=== PATIENT | female | born 1940 | race Caucasian/White ===

== ENCOUNTER 2017-08-05 06:50 | Inpatient (IN) | payer MEDICARE, MEDICAID ==
[2017-08-05 07:22] LABS: #Basophils 0.1 thou/uL (0.0-0.2); #Eosinphils 0.5 thou/uL (0.0-0.7); #Lymphocytes 2.4 thou/uL (1.20-3.40); #Monocytes 0.5 thou/uL (0.11-0.59); #Neutrophils 5.3 thou/uL (1.40-6.50); %Basophils 0.9 % (0.0-1.0); %Eosinophils 5.5 % (0.0-10.0); %Lymphocytes 26.9 % (21.0-51.0); %Monocytes 5.8 % (0.0-10.0); Hematocrit 41.3 % (36.0-47.0); Red Blood Cell (RBC) Count 3.96 mill/uL (4.20-5.40); White Blood Cell (WBC) Count 8.7 thou/uL (4.8-10.8)
[2017-08-05 07:45] LABS: ALT (SGPT) 15 U/L (8-55); AST (SGOT) 11 U/L (5-34); Alkaline Phosphatase 77 U/L (40-150); Anion Gap 16 mmol/L (10-20); BUN (Urea Nitrogen) 12 mg/dL (9.8-20.1); Bilirubin, Total 0.7 mg/dL (0.2-1.2); CK (CPK) 30 U/L (29-168); Calc. Creatinine Clearance 0 mL/min (70-130); Calcium 9.1 mg/dL (7.8-10.44); Carbon Dioxide 22 mmol/L (23-31); Chloride 105 mmol/L (98-107); Estimated GFR-MDRD 58; Globulin 2.5 g/dL (2.4-3.5); Protein, Total 6.5 g/dL (6.0-8.3)
[2017-08-05 07:46] LABS: Lactic Acid - Sepsis 2.9 mmol/L (0.5-2.2)
[2017-08-05 07:49] LABS: Troponin I Less than 0.010 ng/mL (< 0.028)
--- NOTE | 2017-08-05 08:01 | RAD ---
SINGLE VIEW OF THE CHEST: COMPARISON: 07/20/17. HISTORY: Shortness of breath and dyspnea. FINDINGS: A single view of the chest shows a normal-sized cardiomediastinal silhouette. The patient is status post sternotomy. There is no evidence of consolidation, mass, or pleural effusion. Degenerative c hanges are seen in the spine. IMPRESSION: No evidence of acute cardiopulmonary disease. POS: [facility]
[2017-08-05] MEDS ORDERED: HYDROcodone/Acetaminophen 5/325 mg Tablet ONE (09:59)
[2017-08-05] MEDS ORDERED: Acetaminophen 325 MG TAB PO PRN ×2 (10:41→18:15)
[2017-08-05] MEDS ORDERED: Ondansetron HCl/PF 4 MG/2 ML Vial IVP PRN (10:41)
[2017-08-05] MEDS ORDERED: Ondansetron ODT 4 MG TAB PO PRN (10:41)
[2017-08-05 10:57] VITALS: BMI 31.6
[2017-08-05] MEDS ORDERED: Dextrose 50% Abboject 50 ML SYRINGE IVP PRN (12:42)
[2017-08-05] MEDS ORDERED: Dextrose 5% in Water 1,000 ML IV PRN (12:42)
[2017-08-05] MEDS ORDERED: Nitroglycerin 0.4 MG TAB (25 Tab Bottle) SL PRN (12:47)
[2017-08-05] MEDS: PROVENTIL INHALER 6.7 G (200 INHALATIONS) INH SCH ×3 (14:10→19:28)
[2017-08-05] MEDS: Insulin Regular 300 UNITS/3 ML VIAL SC PRN ×2 (16:54→20:03)
[2017-08-05] MEDS: Metoprolol Tartrate 25 MG TAB PO SCH (20:02)
[2017-08-05] MEDS: Simvastatin 40 MG TAB PO SCH (20:02)
[2017-08-06] MEDS ORDERED: Ondansetron HCl/PF 4 MG/2 ML Vial IVP PRN (01:15)
[2017-08-06] MEDS: Insulin Regular 300 UNITS/3 ML VIAL SC PRN ×3 (05:16→20:51)
--- NOTE | 2017-08-06 06:29 | HP ---
DATE OF ADMISSION: 08/05/2017 REASON AND CHIEF COMPLAINT: Shortness of breath and cough. HISTORY OF PRESENT ILLNESS: Ms. Marialuisa Bailey is a 77-year-old female with past medical history of coronary artery disease, status post coronary artery bypass graft, hypertension, diabete s mellitus and asthmatic bronchitis who came because of sudden onset of shortness of breath. Tien nagy states shortness of breath came suddenly and she could not breathe and has started wheezing, also has some cough with yellow sputum. The patient states that sputum sometime is green. She says the shortness of breath became worse in a short time. Also, has some swelling and pain in both the legs , so the EMS was called. EMS found the patient to be hypoxic and is chest wheezing. She received S francisco-Medrol and put on oxygen. In the ER, the patient was still wheezing and given DuoNebs after whi ch her oxygen saturation improved. She is admitted for further evaluation and management. Patient also received Levaquin in the ER. PAST MEDICAL HISTORY: 1. Coronary artery disease, status post coronary artery bypass graft. 2. Hypertension. 3. Diabetes mellitus. 4. Hyperlipidemia. 5. History of syncopal episode. 6. History of asthmatic bronchitis. PAST SURGICAL HISTORY: Status post coronary artery bypass graft. CURRENT MEDICATIONS: The patient is on albuterol inhaler 2 puffs q.i.d., amlodipine 10 mg daily, as pirin 81 mg daily, vitamin D daily, Plavix 75 mg daily, Lasix 40 mg daily, glipizide 2.5 mg daily, h ydrochlorothiazide 12.5 daily, losartan 100 mg daily, metformin 500 b.i.d., metoprolol 12.5 b.i.d., nitroglycerin p.r.n., Protonix 40 mg daily, Onglyza 5 mg daily, sertraline 50 mg at bedtime and simv astatin 40 mg daily. ALLERGIES: PENICILLIN. FAMILY HISTORY: Nothing of interest. SOCIAL HISTORY: Patient lives with family. No history of smoking. No history of alcohol. REVIEW OF SYSTEMS: Unremarkable except for the shortness of breath and cough. PHYSICAL EXAMINATION: GENERAL: The patient is alert, awake and oriented x3. VITAL SIGNS: Temperature 98, pulse 79, respiratory rate 18, blood pressure 150/60. HEENT: Head is normocephalic and atraumatic. Pupils are equal and reactive. Nasopharynx is pink a nd moist. NECK: Supple. No JVD. LUNGS: Bilateral air entry. Breath sounds diminished bilaterally. Expiratory wheeze present bilat erally. HEART: S1 and S2 regular. ABDOMEN: Soft. No distention, no tenderness. Normal bowel sounds. RECTAL: Deferred. CENTRAL NERVOUS SYSTEM: No focal deficits. LABORATORY AND X-RAY FINDINGS: CBC shows WBC of 8.7, hemoglobin 13, hematocrit 41 and platelets 146 . Metabolic panel shows a sodium of 139, potassium 3.7, chloride 105, CO2 22, BUN 12, creatinine 0. 93, glucose 305. Lactic acid level 2.9. BNP is 146, CK-MB 0.7 and troponin I less than 0.010. EKG shows normal sinus rhythm, no acute ST-T wave changes seen. Chest x-ray: No evidence of acute car diopulmonary disease. ASSESSMENT: 1. Acute asthmatic bronchitis. 2. Hypertension. 3. Diabetes mellitus. 4. Coronary artery disease, status post coronary artery bypass graft. 5. Hypoxia. 6. History of syncopal episodes. PLAN: 1. Vital signs q.4 h. 2. Activity as tolerated. 3. Allergies: To PENICILLIN. 4. Hep-Lock. 5. DuoNeb 1 unit q.6 h. 6. Solu-Medrol 20 IVP q.6 h. 7. Oxygen by nasal cannula 2 liters. 8. Levaquin 750 IV piggyback daily. 9. Continue home meds. 10. Accu-Chek a.c. and at bedtime. 11. Sliding scale mild with Regular.
[2017-08-06] MEDS: Hydrochlorothiazide 25 MG TAB PO SCH (09:40)
[2017-08-06] MEDS: Losartan Potassium 25 MG TAB PO SCH (09:40)
[2017-08-06] MEDS: Alogliptin Benzoate 25 MG TABLET PO SCH (09:40)
[2017-08-06] MEDS: Furosemide 40 MG TAB PO SCH (09:40)
[2017-08-06] MEDS: Aspirin 81 mg Enteric Coated Tablet PO SCH (09:40)
[2017-08-06] MEDS: Metoprolol Tartrate 25 MG TAB PO SCH ×2 (09:41→20:51)
[2017-08-06] MEDS: Clopidogrel Bisulfate 75 MG TAB PO SCH (09:41)
[2017-08-06] MEDS: PROVENTIL INHALER 6.7 G (200 INHALATIONS) INH SCH ×4 (11:18→19:20)
[2017-08-06] MEDS: Simvastatin 40 MG TAB PO SCH (20:50)
[2017-08-07] MEDS: Insulin Regular 300 UNITS/3 ML VIAL SC PRN (05:33)
--- NOTE | 2017-08-07 07:38 | PQF ---
CLINICAL DOCUMENTATION IMPROVEMENT CLARIFICATION FORM: ICD-10 Updated PLEASE DO AN ADDENDUM TO THE PROGRESS NOTE WITH ANY DOCUMENTATION UPDATES OR ADDITIONS AND CARRY THROUGH TO DC SUMMARY. THANK YOU. DATE: 08/07 ATTN: DR. Kyaw JAMES Please exercise your independent, professional judgment in responding to the clarification form. Clinical indicators are provided on the bottom of this form for your review. For continuity of documentation, please document condition throughout progress notes and discharge summary. Thank You. Please check appropriate box(s): [ ] Acute Respiratory Failure: [ ] with Hypoxia [ ] with Hypercapnia [ ] Acute On Chronic Respiratory Failure: [ ] with Hypoxia [ ] with Hypercapnia [ ] Acute Respiratory Failure due to: (etiology) [ y] Other diagnosis asthamatic bronchitis [ ] Unable to determine CLINICAL INDICATORS - SIGNS / SYMPTOMS / LABS ER PHYSICIAN DOCUMENTATION 08/05: PER EMS - 02 SATS IN THE 80'S ON SCENE. IMPROVED IN THE ED. RR: 22, LABORED. 02 SAT ON 2L: 91%, PLACED ON FACE MASK: 100%, WEANED TO 4L NC: 96%. HYPOXIA PHYSICIAN H&P DOCUMENTATION 08/05: HISTORY OF PRESENT ILLNESS: EMS FOUND THE PATIENT TO BE HYPOXIC AND WHEEZING ASSESSMENT: 5. HYPOXIA RISK FACTORS: ACUTE ASTHMATIC BRONCHITIS HYPOXIA HISTORY OF CHF TREATMENTS: OXYGEN TO KEEP SATS 92% RESPIRATORY TREATMENTS IV ANTIBIOTIC (LEVAQUIN 08/05 - PRESENT) THANK YOU! Citlalli (This form is maintained as a part of the permanent medical record) 2014 [employer]. All Rights Reserved Citlalli Christiansen RN, BSN [email or web address] Office: [phone] [facility]ITAL[facility]
[2017-08-07] MEDS: PROVENTIL INHALER 6.7 G (200 INHALATIONS) INH SCH (08:04)
[2017-08-07] MEDS: Alogliptin Benzoate 25 MG TABLET PO SCH (09:09)
[2017-08-07] MEDS: Aspirin 81 mg Enteric Coated Tablet PO SCH (09:09)
[2017-08-07] MEDS: Losartan Potassium 25 MG TAB PO SCH (09:09)
[2017-08-07] MEDS: Hydrochlorothiazide 25 MG TAB PO SCH (09:10)
[2017-08-07] MEDS: Metoprolol Tartrate 25 MG TAB PO SCH (09:11)
[2017-08-07] MEDS: Furosemide 40 MG TAB PO SCH (09:12)
[2017-08-07] MEDS: Clopidogrel Bisulfate 75 MG TAB PO SCH (09:12)
[2017-08-07 11:58] VITALS: BP 125/67; TEMP 98.2
[2017-08-07] MEDS ORDERED: guaiFENesin ER 600 MG TAB PO SCH (21:00)
[2017-08-08] MEDS ORDERED: predniSONE 20 MG TAB PO SCH (09:00)
--- NOTE | 2017-08-10 10:19 | DIS ---
DATE OF ADMISSION: 08/05/2017 DATE OF DISCHARGE: 08/07/2017 ADMITTING DIAGNOSES: 1. Acute asthmatic bronchitis. 2. Hypertension. 3. Diabetes mellitus. 4. Coronary artery disease, status post coronary artery bypass grafting. 5. Hypoxia. 6. Syncopal episode by history. FINAL DIAGNOSES: 1. Acute asthmatic bronchitis, improved. 2. Hypoxia, improved. 3. Hypertension. 4. Diabetes mellitus. 5. Coronary artery disease, status post coronary artery bypass grafting. BRIEF SUMMARY OF HOSPITAL COURSE: Ms. Bailey is a 77-year-old female admitted because of shortness of breath, cough, congestion. The patient was found to be wheezing and was found to have acute asthmatic bronchitis. The patient was started on IV Solu-Medrol and DuoNeb treatments and Le vaquin. The patient improved markedly in the next couple of days. Her shortness of breath improved . Her chest wheezing resolved and her hypoxia improved. In view of the improvement, the patient wa s discharged. At the time of discharge, she was stable. Her vital signs were stable. Lungs were c lear. Heart sounds regular. Abdomen is soft and nontender. Bowel sounds present. DISCHARGE MEDICATIONS: Include simvastatin 40 mg daily, losartan 100 mg daily, Plavix 75 mg daily, metformin 500 b.i.d., Zoloft 50 mg daily, aspirin 81 mg daily, vitamin D 5000 units daily, metoprolo l 12.5 b.i.d., glipizide 2.5 mg daily, nitroglycerin p.r.n., amlodipine 10 mg daily, Lasix 40 mg eufemia ly, albuterol inhaler 2 puffs q.i.d., hydrochlorothiazide 12.5 mg daily, Onglyza 5 mg daily, Protoni x 40 mg daily, Levaquin 750 daily for 5 days, Mucinex 600 b.i.d. for 7 days, prednisone in tapering doses. FOLLOWUP: The patient will come for followup in 2 weeks.
== END 2017-08-07 12:34 | disposition home or self-care (01) | DRG 203 ==
LOC: ERS 06:50 → T4-B 08:29
PROVIDERS: ADMIT Internal Medicine; ATTEND Internal Medicine
DX: J45.901 Unspecified asthma with (acute) exacerbation (principal); E11.9 Type 2 diabetes mellitus without complications; I25.10 Atherosclerotic heart disease of native coronary artery without angina pectoris; I10 Essential (primary) hypertension; E78.5 Hyperlipidemia, unspecified; R09.02 Hypoxemia; Z95.1 Presence of aortocoronary bypass graft; Z88.0 Allergy status to penicillin
CPT/HCPCS: 36415; 36416; 71010; 80053; 82553; 83605; 83880; 84484; 85025; 87040; 87149; 93005; 94640; 94664; 96365; 96366; A4216; J1815; J1956; J2405; J2920; J7620

== ENCOUNTER 2017-09-28 18:59 | Inpatient (IN) | payer MEDICARE, OTHER ==
[2017-09-28 19:28] LABS: #Basophils 0.1 thou/uL (0.0-0.2); #Eosinphils 0.3 thou/uL (0.0-0.7); #Monocytes 0.8 thou/uL (0.11-0.59); #Neutrophils 4.4 thou/uL (1.40-6.50); %Basophils 0.7 % (0.0-1.0); %Eosinophils 4.6 % (0.0-10.0); %Lymphocytes 26.7 % (21.0-51.0); %Monocytes 10.6 % (0.0-10.0); Hematocrit 39.2 % (36.0-47.0); Mean Platelet Volume 10.4 fL (7.4-10.4); White Blood Cell (WBC) Count 7.6 thou/uL (4.8-10.8)
[2017-09-28 19:49] LABS: ALT (SGPT) 18 U/L (8-55); AST (SGOT) 13 U/L (5-34); Alkaline Phosphatase 85 U/L (40-150); Anion Gap 14 mmol/L (10-20); BUN (Urea Nitrogen) 15 mg/dL (9.8-20.1); Bilirubin, Total 0.5 mg/dL (0.2-1.2); Calc. Creatinine Clearance 0 mL/min (70-130); Calcium 9.2 mg/dL (7.8-10.44); Carbon Dioxide 26 mmol/L (23-31); Chloride 101 mmol/L (98-107); Estimated GFR-MDRD 51; Globulin 2.6 g/dL (2.4-3.5); Protein, Total 6.7 g/dL (6.0-8.3)
--- NOTE | 2017-09-28 20:56 | RAD ---
TWO VIEW CHEST: History: Cough. Comparison: 10-29-16 FINDINGS: A large fixed diaphragmatic hernia is again noted without significant change in appearance. Lungs coretta ear clear with no infiltrate identified. Heart size upper normal with post op sternotomy change. Mild wedging of a lower thoracic vertebra is stable. IMPRESSION: Large fixed diaphragmatic hernia. No evidence of focal infiltrate. POS: [facility]
[2017-09-28] MEDS ORDERED: predniSONE 20 MG TAB ONE (21:29)
[2017-09-28] MEDS ORDERED: Albuterol Sulfate 2.5 mg/3 ml Neb ONE (21:32)
[2017-09-28] MEDS ORDERED: Ondansetron HCl/PF 4 MG/2 ML Vial IVP PRN (22:49)
[2017-09-28] MEDS ORDERED: Acetaminophen 325 MG TAB PO PRN (22:49)
[2017-09-28] MEDS ORDERED: Ondansetron ODT 4 MG TAB SL PRN (22:49)
[2017-09-29 01:27] VITALS: BMI 30.2
[2017-09-29] MEDS ORDERED: FLU VACC TS2017-18 (>65YR) 0.5 ML SYRINGE IM ONE (09:00)
[2017-09-29] MEDS ORDERED: Dextrose 50% Abboject 50 ML SYRINGE IVP PRN (11:11)
[2017-09-29] MEDS ORDERED: Dextrose 5% in Water 1,000 ML IV PRN (11:11)
[2017-09-29] MEDS: Insulin Regular 300 UNITS/3 ML VIAL SC PRN ×2 (17:19→20:25)
--- NOTE | 2017-09-29 17:23 | HP ---
DATE OF ADMISSION: 09/28/2017 REASON FOR ADMISSION AND CHIEF COMPLAINT: Cough, shortness of breath. HISTORY OF PRESENT ILLNESS: Ms. Bailey is a 77-year-old female with past medical history of hypertension, diabetes mellitus, coronary artery disease, who developed a cough and shortness of b reath for a few days, which got worse now. She says cough is nonproductive and started wheezing and getting worse to the point she cannot breathe. She did have some nausea, no vomiting, no chest pain, no headache, no dizziness. The patient decided to come to the hospital because of worsening shortne ss of breath. In the ER, the patient was found to have chest wheezing and suggesting asthmatic bronc hitis. The patient received neb treatments, oral prednisone. The patient was admitted for further m anagement. The patient was also hypoxic with O2 saturation of 88% on room air. The patient was in [facility] a few times for this bronchitis. PAST MEDICAL HISTORY: 1. Coronary artery disease, status post CABG. 2. Hypertension. 3. Diabetes mellitus. 4. Hyperlipidemia. 5. History of asthmatic bronchitis. 6. Syncopal episode. PAST SURGICAL HISTORY: Status post CABG. CURRENT MEDICATIONS: The patient is on albuterol inhaler q.i.d., amlodipine 10 mg daily, Plavix 75 m g daily, glipizide XL 2.5 mg daily, hydrochlorothiazide 12.5 daily, losartan 100 mg daily, Lopressor 25 b.i.d., Protonix 40 mg daily, Onglyza 5 mg daily, simvastatin 20 mg daily. ALLERGIES: PENICILLIN. FAMILY HISTORY: Nothing of interest. SOCIAL HISTORY: Patient lives with family. No history of smoking. No history of alcohol intake. REVIEW OF SYSTEMS: Unremarkable except for shortness of breath and cough. PHYSICAL EXAMINATION: GENERAL: The patient is alert, awake, oriented x3. VITAL SIGNS: Temperature 98, pulse 103, respirations 20, blood pressure 130/60, saturation 91% on 2 liters. HEENT: Head is normocephalic, atraumatic. Pupils equal and reactive to light. Nasopharynx is pale and dry. Hard and soft palate, no lesions seen. SKIN: Skin turgor is present. NECK: Supple. No JVD. LUNGS: Breath sounds diminished bilaterally. Percussion not dull bilaterally. Expiratory wheeze pr esent bilaterally. CARDIAC: S1, S2 regular. ABDOMEN: Soft, no distention, no tenderness. Normal bowel sounds. RECTAL: Deferred. CENTRAL NERVES SYSTEM: No focal deficits. LABORATORY AND X-RAY FINDINGS: CBC shows WBC 7.7, hemoglobin 13, hematocrit 39, platelets 150. [place] bolic panel: Sodium 137, potassium 3.6, chloride 101, CO2 of 26, urea nitrogen 15, creatinine 1, glu cose 206. Chest x-ray negative. EKG shows normal sinus rhythm, no acute ST-T wave changes seen. ASSESSMENT: 1. Acute asthmatic bronchitis. 2. Hypertension. 3. Diabetes mellitus. 4. Hyperlipidemia. 5. Coronary artery disease, status post coronary artery bypass graft. 6. Hypoxia. PLAN: 1. Vital signs q.4 hours. 2. Activity: As tolerated. 3. Allergies: PENICILLIN. 4. Diet: ADA. 5. Hep-Lock. 6. Solu-Medrol 20 IVP q.6 hours. DuoNebs 1 unit q.6 hours. 7. Mucinex 600 b.i.d. 8. Continue home medication. 9. Accu-Chek a.c. and at bedtime. 10. Sliding scale mild with regular insulin. 11. Oxygen by nasal cannula on 2 L.
[2017-09-29] MEDS: Atorvastatin Calcium 10 MG TAB PO SCH (20:24)
[2017-09-29] MEDS: guaiFENesin ER 600 MG TAB PO SCH (20:24)
[2017-09-29] MEDS: Metoprolol Tartrate 25 MG TAB PO SCH (20:24)
[2017-09-30] MEDS: Insulin Regular 300 UNITS/3 ML VIAL SC PRN ×3 (05:40→17:03)
[2017-09-30] MEDS: Hydrochlorothiazide 25 MG TAB PO SCH (07:44)
[2017-09-30] MEDS: guaiFENesin ER 600 MG TAB PO SCH ×2 (07:44→20:43)
[2017-09-30] MEDS: Clopidogrel Bisulfate 75 MG TAB PO SCH (07:45)
[2017-09-30] MEDS: Metoprolol Tartrate 25 MG TAB PO SCH ×2 (07:46→20:43)
[2017-09-30] MEDS: Losartan Potassium 25 MG TAB PO SCH ×2 (07:46→08:12)
[2017-09-30] MEDS: ONGLYZA 5 MG TAB PO SCH (07:47)
[2017-09-30] MEDS: Amlodipine 10 MG TAB PO SCH (07:52)
[2017-09-30] MEDS: Atorvastatin Calcium 10 MG TAB PO SCH (20:43)
[2017-10-01] MEDS: Insulin Regular 300 UNITS/3 ML VIAL SC PRN ×4 (05:21→20:56)
[2017-10-01] MEDS: Metoprolol Tartrate 25 MG TAB PO SCH ×2 (08:27→20:41)
[2017-10-01] MEDS: Amlodipine 10 MG TAB PO SCH (08:27)
[2017-10-01] MEDS: Clopidogrel Bisulfate 75 MG TAB PO SCH (08:27)
[2017-10-01] MEDS: guaiFENesin ER 600 MG TAB PO SCH ×2 (08:28→20:41)
[2017-10-01] MEDS: Hydrochlorothiazide 25 MG TAB PO SCH (08:29)
[2017-10-01] MEDS: Losartan Potassium 25 MG TAB PO SCH (08:30)
[2017-10-01] MEDS: ONGLYZA 5 MG TAB PO SCH (08:32)
[2017-10-01] MEDS ORDERED: Budesonide 0.5 MG/2 ML NEB NEB SCH (14:15)
[2017-10-01] MEDS: Budesonide 0.5 MG/2 ML NEB NEB SCH (18:38)
[2017-10-01] MEDS: Atorvastatin Calcium 10 MG TAB PO SCH (20:41)
[2017-10-02] MEDS: Insulin Regular 300 UNITS/3 ML VIAL SC PRN ×4 (05:13→21:08)
[2017-10-02] MEDS: Budesonide 0.5 MG/2 ML NEB NEB SCH ×2 (06:21→19:14)
[2017-10-02] MEDS: Hydrochlorothiazide 25 MG TAB PO SCH (09:35)
[2017-10-02] MEDS: guaiFENesin ER 600 MG TAB PO SCH ×2 (09:35→21:05)
[2017-10-02] MEDS: Clopidogrel Bisulfate 75 MG TAB PO SCH (09:35)
[2017-10-02] MEDS: Metoprolol Tartrate 25 MG TAB PO SCH ×2 (09:35→21:05)
[2017-10-02] MEDS: Amlodipine 10 MG TAB PO SCH (09:35)
[2017-10-02] MEDS: Losartan Potassium 25 MG TAB PO SCH (09:35)
[2017-10-02] MEDS: ONGLYZA 5 MG TAB PO SCH (09:38)
[2017-10-02] MEDS ORDERED: Furosemide 40 MG TAB PO SCH (11:00)
[2017-10-02 11:54] LABS: Anion Gap 14 mmol/L (10-20); BUN (Urea Nitrogen) 24 mg/dL (9.8-20.1); Calc. Creatinine Clearance 51 mL/min (70-130); Calcium 8.7 mg/dL (7.8-10.44); Carbon Dioxide 28 mmol/L (23-31); Chloride 96 mmol/L (98-107); Estimated GFR-MDRD 50
[2017-10-02] MEDS ORDERED: Clopidogrel Bisulfate 75 MG TAB ONE (12:04)
--- NOTE | 2017-10-02 15:44 | RAD ---
2 VIEWS OF CHEST: Date: 10/02/17 COMPARISON: 09/28/17. HISTORY: Asthma flare. FINDINGS: There is rounded lobulated soft tissue density overlying the lower thoracic spine/gastroesophageal ju nction region. There is rounded soft tissue density in the region of the cardiophrenic angle on the r ight as well. There is no pneumothorax or pleural fluid. There is no lobar consolidation or alveolar edema. There i s mild anterior wedging of the T12 vertebral body. IMPRESSION: Stable appearance of the chest as detailed above. Findings suggest a prominent hiatal hernia. Nonspec ific soft tissue density noted at the level of the right cardiophrenic angle of uncertain significanc e. Recommend CT examination on a nonemergent basis for further assessment of the rounded density in t he right cardiophrenic angle. CODE T. POS: [facility]
[2017-10-02] MEDS ORDERED: ISOVUE-370 76%-LOCM 1 ML ONE (17:03)
--- NOTE | 2017-10-02 18:07 | CT ---
CT ANGIOGRAM OF THORAX WITH IV CONTRAST AND 3D RECONSTRUCTIONS: 10/02/17 HISTORY: Shortness of breath since Thursday. COMPARISON: 07/17/17. FINDINGS: No filling defects are seen in the pulmonary arteries to suggest pulmonary embolus. Thoracic aorta re hung normal in caliber without evidence of an aortic dissection. Minimal vascular calcifications are seen in the thoracic aorta. There are vascular calcifications seen in the coronary arteries. Again noted is a hiatal hernia with the fundus and proximal body of the stomach above the level of th e hemidiaphragms. There are a few reticulonodular densities seen within the perihilar regions bilater ally and predominantly in the upper lobes which may be related to infectious or inflammatory process. There is atelectasis present at each lung base. There is no evidence of lymphadenopathy. Postsurgical changes related to median sternotomy are presen t. There has been no other interval change from the prior exam. IMPRESSION: 1. Mild reticulonodular densities in the perihilar regions bilaterally which weres not present o n the prior study and is likely related to infectious or inflammatory process. 2. No CT evidence of a pulmonary embolus. 3. Moderate sized hiatal hernia. POS: [facility]
[2017-10-02] MEDS: Atorvastatin Calcium 10 MG TAB PO SCH (21:05)
[2017-10-03] MEDS: Insulin Regular 300 UNITS/3 ML VIAL SC PRN ×4 (06:19→21:08)
[2017-10-03] MEDS: Budesonide 0.5 MG/2 ML NEB NEB SCH ×2 (06:57→19:24)
[2017-10-03] MEDS: Amlodipine 10 MG TAB PO SCH (08:11)
[2017-10-03] MEDS: Hydrochlorothiazide 25 MG TAB PO SCH (08:11)
[2017-10-03] MEDS: Metoprolol Tartrate 25 MG TAB PO SCH ×2 (08:13→21:06)
[2017-10-03] MEDS: guaiFENesin ER 600 MG TAB PO SCH ×2 (08:13→21:06)
[2017-10-03] MEDS: Clopidogrel Bisulfate 75 MG TAB PO SCH (08:13)
[2017-10-03] MEDS: Furosemide 40 MG TAB PO SCH (08:13)
[2017-10-03] MEDS: ONGLYZA 5 MG TAB PO SCH (08:29)
--- NOTE | 2017-10-03 18:08 | CON ---
DATE OF CONSULTATION: 10/03/2017 CONSULTING PHYSICIAN: Javid Mir M.D. REASON FOR CONSULTATION: Asthma. HISTORY OF PRESENT ILLNESS: The patient is a 77-year-old female who was hospitalized on 09/28/2017 w ith shortness of breath and cough. She says she has had difficulty over the last 7 months. Prior to that, she had no issues with her breathing. She is a lifelong nonsmoker. PAST MEDICAL HISTORY: 1. Coronary artery disease. 2. Hypertension. 3. Diabetes mellitus. 4. Hyperlipidemia. 5. Asthmatic bronchitis. 6. Syncope. PAST SURGICAL HISTORY: Coronary artery bypass grafting surgery. MEDICATIONS PRIOR TO ADMISSION: Albuterol, amlodipine, Plavix, glipizide, hydrochlorothiazide, Lopre ssor, Onglyza and simvastatin. ALLERGIES: PENICILLIN. SOCIAL HISTORY: Lifelong nonsmoker, does not consume alcohol. Lives in [place]. REVIEW OF SYSTEMS: She has had a cough which is usually dry. She has had no fever, chills, nausea, vomiting, hematemesis, melena, hematochezia, hematuria, or dysuria. She does have gastroesophageal r eflux. PHYSICAL EXAMINATION: VITAL SIGNS: Temperature 98.5, pulse 75, blood pressure 116/71, O2 sat 94% on 2 liters. HEENT: Unremarkable. NECK: No adenopathy or JVD. LUNGS: She has inspiratory crackles with some mild expiratory wheezing bilaterally. CARDIOVASCULAR: S1, S2 regular. ABDOMEN: Soft, nontender, nondistended. EXTREMITIES: No clubbing, cyanosis, or edema. LABORATORY DATA: White blood cell count 7.6, hematocrit 39.2, platelet count 150. Sodium 133, potas sium 4.7, chloride 96, CO2 of 28, BUN 24, creatinine 1.1, glucose 303. CT was reviewed. Of note, jackson li has some interstitial thickening, but no overt pulmonary fibrosis, the most striking feature is the large hiatal hernia in her thorax. ASSESSMENT: Asthmatic bronchitis which is probably aggravated by the hiatal hernia and repetitive as piration of gastric acid. RECOMMENDATIONS: I would recommend that we increase her Protonix to twice a day. I would strongly a dvise gastroenterology input. She may need to have that surgically repaired, else risk continued asp iration and aggravation of her bronchitis.
[2017-10-03] MEDS ORDERED: Temazepam 15 MG CAP PO PRN (20:24)
[2017-10-03] MEDS: Atorvastatin Calcium 10 MG TAB PO SCH (21:06)
[2017-10-04] MEDS: Insulin Regular 300 UNITS/3 ML VIAL SC PRN ×3 (06:11→18:11)
[2017-10-04] MEDS: Budesonide 0.5 MG/2 ML NEB NEB SCH (07:09)
[2017-10-04] MEDS: Furosemide 40 MG TAB PO SCH (08:58)
[2017-10-04] MEDS: Clopidogrel Bisulfate 75 MG TAB PO SCH (08:58)
[2017-10-04] MEDS: Metoprolol Tartrate 25 MG TAB PO SCH ×2 (08:58→20:02)
[2017-10-04] MEDS: Amlodipine 10 MG TAB PO SCH (08:58)
[2017-10-04] MEDS: Losartan Potassium 25 MG TAB PO SCH (08:59)
[2017-10-04] MEDS: guaiFENesin ER 600 MG TAB PO SCH ×2 (08:59→20:02)
[2017-10-04] MEDS: Hydrochlorothiazide 25 MG TAB PO SCH (08:59)
[2017-10-04] MEDS: ONGLYZA 5 MG TAB PO SCH (09:02)
[2017-10-04 09:03] VITALS: TEMP 98.1
--- NOTE | 2017-10-04 12:54 | PRG ---
DATE OF SERVICE: 10/04/2017 SUBJECTIVE: She feels better and wants to go home. PHYSICAL EXAMINATION: VITAL SIGNS: Temperature is 98.1, pulse 90, respirations 16, O2 sat 95%, blood pressure 121/73. HEENT: Unremarkable. NECK: Supple. No JVD. CHEST: Clear without wheezing. CARDIAC: S1 and S2 regular. ABDOMEN: Soft. EXTREMITIES: No edema. ASSESSMENT: Persistent asthmatic bronchitis triggered by chronic aspiration due to a large hiatal he rnia in her chest. RECOMMENDATIONS: 1. Continue Protonix twice daily for acid suppression. 2. Treat with bronchodilators. 3. Steroids taper over a couple of weeks. 4. Probably ready to go home at any time and can get the GI or surgical evaluation as an outpatient.
--- NOTE | 2017-10-04 15:26 | CON ---
DATE OF CONSULTATION: 10/04/2017 TYPE OF CONSULTATION: GI inpatient consultation. REQUESTING PHYSICIAN: Evangelista Webb M.D. REASON FOR CONSULTATION: Hiatal hernia. HISTORY OF PRESENT ILLNESS: Marialuisa Bailey is a very pleasant 77-year-old woman. She was previousl y seen by my colleague, Dr. Jorge Alberto Stephenson back in 2008 and had an EGD at that time for complaint of aidan na. The EGD was normal at that time. There was no mention of any hiatal hernia. She does have some chronic ongoing occasional heartburn symptoms, nothing too significant. She has been on Protonix 40 mg daily for a long time which she says really helps her symptoms. There is no dysphagia, nausea, v omiting, abdominal pain, change in bowel habits, diarrhea, constipation, melena or hematochezia. Ove r the past 7 months or so, she has had some repeated episodes of bronchitis, shortness of breath and cough. She had no real issues with her breathing prior to that. She is a lifelong nonsmoker. She w as admitted to the hospital 5 days ago with cough and shortness of breath and was initially hypoxic w ith oxygen saturation only 88% on room air. She has been treated with inhalers and steroids and her respiratory status is much better now. Dr. Webb saw her in consultation yesterday and recommended GI evaluation due to concern for hiatal hernia and recurrent aspiration of gastric acid is driving h er asthmatic bronchitis. She does have chest x-rays and CT imaging showing a moderate to large size hiatal hernia. REVIEW OF SYSTEMS: Full review of systems including constitutional, head, eyes, ears, nose, throat, GI, , cardiovascular, respiratory, musculoskeletal, and neurologic systems is negative except as no cyrus in the HPI. PAST MEDICAL HISTORY: Coronary artery disease, coronary artery bypass graft surgery, hypertension, d iabetes, hyperlipidemia, asthmatic bronchitis, syncope. OUTPATIENT MEDICATIONS: Albuterol, amlodipine, Plavix, glipizide, hydrochlorothiazide, Lopressor, On glyza, simvastatin. ALLERGIES: PENICILLIN. SOCIAL HISTORY: She is a lifetime nonsmoker. She does not drink alcohol. She lives in [place]. FAMILY HISTORY: Noncontributory. PHYSICAL EXAMINATION: VITAL SIGNS: Temperature 98.1, pulse 90, blood pressure 121/73, 95% oxygen saturation on room air. GENERAL: No acute distress. SKIN: No jaundice, no rashes were palpable. EYES: No scleral icterus. Extraocular movements intact. ENT: Mucous membranes moist, no oral lesions. LYMPH: No submandibular or supraclavicular lymphadenopathy. THYROID: Nontender to palpation. HEART: Regular rate and rhythm. LUNGS: Clear to auscultation bilaterally. ABDOMEN: Bowel sounds present, soft and nontender to palpation throughout. EXTREMITIES: No peripheral edema. VESSELS: Radial pulses 2+ bilaterally. NEUROLOGICAL: Cranial nerves II-XII intact bilaterally. No focal deficits. LABORATORY STUDIES: Glucose 376. Last CMP was from 10/02/2017 showing sodium 133, potassium 4.7, BU N 24, creatinine 1.06. Last CBC was from admission on 09/28/2017 showing WBC 7.6, hemoglobin 13.2, p latelets 150. IMAGING STUDIES: CT of the thorax shows a moderate sized hiatal hernia, some mild reticular nodular densities in the perihilar regions bilaterally, likely related to infectious or inflammatory process. No evidence of pulmonary embolus. Chest x-ray demonstrates large hiatal hernia. ASSESSMENT AND PLAN: 1. Hiatal hernia. 2. Recurrent episodes of asthmatic bronchitis, suspected possibly secondary to repeated aspiration e pisodes from her hiatal hernia. Her symptoms of heartburn or reflux are actually minimal on Protonix , but I agree the hiatal hernia puts her at risk for repeated microaspiration episodes which may be d riving her asthmatic bronchitis. Further investigation is certainly reasonable. Esophagogastroduode noscopy would be the next step. This could be performed on either an inpatient or outpatient basis. I offered to perform the esophagogastroduodenoscopy tomorrow, but the patient is really wanting to b e discharged home and follow up as an outpatient for this if possible. I think that is certainly chandrika sonable. We will arrange for her to have upper endoscopy within the next few weeks with her primary audio video technician, Dr. Stephenson. Gastroenterology will sign off. Thank you this consultation. Please call back with questions or concerns.
[2017-10-04] MEDS ORDERED: PROVENTIL INHALER 6.7 G (200 INHALATIONS) INH SCH (19:00)
[2017-10-04] MEDS: Atorvastatin Calcium 10 MG TAB PO SCH (20:02)
[2017-10-04 20:45] VITALS: BP 134/69
[2017-10-04] MEDS ORDERED: predniSONE 20 MG TAB PO SCH (21:00)
== END 2017-10-04 20:34 | disposition home or self-care (01) | DRG 203 ==
LOC: ERS 18:59 → OBSVTOIN 22:00 → T4-A 22:00
PROVIDERS: ADMIT Internal Medicine; ATTEND Internal Medicine
DX: J45.50 Severe persistent asthma, uncomplicated (principal); E11.9 Type 2 diabetes mellitus without complications; I10 Essential (primary) hypertension; K44.9 Diaphragmatic hernia without obstruction or gangrene; Z79.84 Long term (current) use of oral hypoglycemic drugs; E78.5 Hyperlipidemia, unspecified; I25.10 Atherosclerotic heart disease of native coronary artery without angina pectoris; Z95.1 Presence of aortocoronary bypass graft; Z88.0 Allergy status to penicillin; R09.02 Hypoxemia
CPT/HCPCS: 36415; 36416; 71020; 71275; 80048; 80053; 83880; 85025; 90471; 90682; 93005; 94640; 94760; A4216; G0008; J1815; J2920; J7506; J7611; J7620; J7626; Q2036

== ENCOUNTER 2017-10-22 10:19 | Observation (INO) | payer MEDICARE, OTHER ==
[2017-10-22 10:50] LABS: #Basophils 0.1 thou/uL (0.0-0.2); #Eosinphils 0.6 thou/uL (0.0-0.7); #Lymphocytes 2.5 thou/uL (1.20-3.40); #Monocytes 0.5 thou/uL (0.11-0.59); #Neutrophils 3.6 thou/uL (1.40-6.50); %Basophils 0.8 % (0.0-1.0); %Eosinophils 8.1 % (0.0-10.0); %Monocytes 6.8 % (0.0-10.0); %Neutrophils 50.4 % (42.0-75.0); Hemoglobin 13.3 g/dL (12.0-16.0); Mean Corpuscular HGB CONC 34.3 g/dL (32.0-36.0); Mean Corpuscular Hemoglobin 35.5 pg (27.0-31.0); Mean Platelet Volume 9.8 fL (7.4-10.4); Platelet Count 149 thou/uL (130-400); Red Blood Cell (RBC) Count 3.74 mill/uL (4.20-5.40); White Blood Cell (WBC) Count 7.2 thou/uL (4.8-10.8)
[2017-10-22 11:04] LABS: ALT (SGPT) 17 U/L (8-55); AST (SGOT) 12 U/L (5-34); Albumin 3.8 g/dL (3.4-4.8); Alkaline Phosphatase 74 U/L (40-150); Anion Gap 12 mmol/L (10-20); BUN (Urea Nitrogen) 12 mg/dL (9.8-20.1); Bilirubin, Total 0.7 mg/dL (0.2-1.2); CK (CPK) 24 U/L (29-168); Calc. Creatinine Clearance 0 mL/min (70-130); Calcium 8.8 mg/dL (7.8-10.44); Carbon Dioxide 24 mmol/L (23-31); Chloride 101 mmol/L (98-107); Estimated GFR-MDRD 53; Globulin 2.7 g/dL (2.4-3.5); Glucose 346 mg/dL (83-110); Lipase 31 U/L (8-78); Magnesium 1.9 mg/dL (1.6-2.6); Potassium 4.1 mmol/L (3.5-5.1); Protein, Total 6.5 g/dL (6.0-8.3); Sodium 133 mmol/L (136-145)
[2017-10-22 11:08] LABS: CKMB 0.9 ng/mL (0-6.6); Troponin I Less than 0.010 ng/mL (< 0.028)
--- NOTE | 2017-10-22 11:40 | RAD ---
PORTABLE CHEST: History Dyspnea. COMPARISON: 10/05/17. FINDINGS: There is a large fixed diaphragmatic hernia which has been previously noted. The lungs appear free o f focal infiltrate. No evidence of vascular congestion or edema. No significant effusion. Heart si ze is upper normal with postop sternotomy changes. IMPRESSION: No acute lung process identified. POS: [facility]
[2017-10-22] MEDS ORDERED: Magnesium Sulfate 2 GM/100 ML BAG ONE (12:18)
[2017-10-22] MEDS ORDERED: methylPREDNISolone Sod Succ/PF 125 MG/2 ML VIAL ONE (13:11)
[2017-10-22] MEDS ORDERED: Azithromycin 500 MG VIAL ONE (13:12)
[2017-10-22] MEDS ORDERED: Acetaminophen 325 MG TAB PO PRN (15:53)
[2017-10-22] MEDS ORDERED: Ondansetron ODT 4 MG TAB SL PRN (15:53)
[2017-10-22] MEDS ORDERED: Ondansetron HCl/PF 4 MG/2 ML Vial IVP PRN (15:53)
[2017-10-22] MEDS ORDERED: Albuterol Sulfate 2.5 mg/0.5 ml Neb NEB PRN (15:56)
[2017-10-22 16:46] VITALS: BMI 30.4
[2017-10-22] MEDS ORDERED: Dextrose 5% in Water 1,000 ML IV PRN (18:55)
[2017-10-22] MEDS ORDERED: Dextrose 50% Abboject 50 ML SYRINGE IVP PRN (18:55)
[2017-10-22] MEDS ORDERED: methylPREDNISolone Sod Succ/PF 125 MG/2 ML VIAL IVP SCH (20:00)
[2017-10-22] MEDS: guaiFENesin ER 600 MG TAB PO SCH (21:09)
[2017-10-22] MEDS: Melatonin 3 MG TAB PO SCH (21:09)
[2017-10-22] MEDS: Metoprolol Tartrate 25 MG TAB PO SCH (21:10)
[2017-10-22] MEDS: Simvastatin 20 MG TAB PO SCH (21:10)
--- NOTE | 2017-10-22 23:10 | HP ---
DATE OF ADMISSION: 10/22/2017 REASON AND CHIEF COMPLAINT: Shortness of breath and cough. HISTORY OF PRESENT ILLNESS: Ms. Bailey is a 77-year-old female with past medical history of hypertension, diabetes mellitus, asthmatic bronchitis, who was recently seen in the hospital for t he same problem, came because of shortness of breath came on for the last few days and has been havin g some cough with yellow sputum. The patient states shortness of breath got worse to the point she c ould not breathe after that. She did not have any fever, no nausea, vomiting, and no chest pain. EM S was called. The patient was found in respiratory distress. The patient received neb treatments an d brought to the emergency room. In the ER, the patient was found to have any bronchospasm. She was given Solu-Medrol as well as Rocephin and Zithromax and DuoNebs as well. She also received magnesiu m sulfate. The patient is admitted for further evaluation and management. PAST MEDICAL HISTORY: 1. Hypertension. 2. Diabetes mellitus. 3. Hyperlipidemia. 4. History of asthmatic bronchitis. 5. Coronary artery disease, status post CABG. PAST SURGICAL HISTORY: Status post CABG. CURRENT MEDICATIONS: The patient is on albuterol inhaler 2 puffs q.i.d., amlodipine 10 mg daily, [place] vix 75 mg daily, Lasix 40 mg daily, glipizide 2.5 mg daily, Mucinex 600 b.i.d., hydrochlorothiazide 1 2.5 daily, losartan 100 mg daily, metoprolol 25 b.i.d., Protonix 40 mg b.i.d., prednisone 10 mg daily , Onglyza 5 mg daily, Zocor 20 mg b.i.d., melatonin 5 mg at bedtime. ALLERGIES: PENICILLIN. FAMILY HISTORY: Nothing of interest. SOCIAL HISTORY: The patient lives with family. No history of smoking. No history of alcohol. REVIEW OF SYSTEMS: Cardiovascular: Has no chest pain or shortness of breath. Respiratory: Has cou gh, no fever. Gastrointestinal: No nausea or vomiting. No abdominal pain. Genitourinary: No dysu larry or hematuria. Central Nervous System: No headache, no dizziness. PHYSICAL EXAMINATION: GENERAL: The patient is alert, awake, oriented x3. VITAL SIGNS: Temperature 98, pulse 80, respirations 20, blood pressure 140/80. HEENT: Head is normocephalic, atraumatic. Pupils equal and reactive to light. Nasopharynx is pale and dry. Hard and soft palate, no lesions seen. SKIN: Turgor is decreased. NECK: Supple. No JVD. LUNGS: Bilateral air entry present, rhonchi present bilaterally. Expiratory wheeze present. HEART: S1, S2 regular. ABDOMEN: Soft, no distention, no tenderness. Normal bowel sounds. RECTAL: Deferred. NEUROLOGIC: No focal deficit. LABORATORY AND X-RAY FINDINGS: CBC shows WBC 7.2, hemoglobin 13, hematocrit 38, platelets 104. [place] bolic panel: Sodium 133, potassium 4, chloride 101, CO2 24, BUN 12, creatinine 1, glucose 346. Ches t x-ray shows no acute changes. EKG shows normal sinus rhythm, no acute ST-T wave changes seen. ASSESSMENT: 1. Acute asthmatic bronchitis. 2. Hypertension. 3. Hypoxia. 4. Diabetes mellitus. 5. Coronary artery disease, status post coronary artery bypass graft. 6. Large hiatal hernia. PLAN: 1. Vital signs q. 4 hours. 2. Activity: As tolerated. 3. Allergies: PENICILLIN. 4. Hep-Lock. 5. Diet: ADA. 6. Solu-Medrol 20 IVP q. 6 hours. 7. Rocephin 1 gram IV piggyback daily. 8. DuoNebs q.i.d. 1 unit. 9. Continue home medications. 10. Accu-Cheks a.c. and at bedtime. 11. Sliding scale mild with regular insulin.
[2017-10-23] MEDS: Insulin Regular 300 UNITS/3 ML VIAL SC PRN ×4 (00:01→18:11)
[2017-10-23] MEDS: Amlodipine 10 MG TAB PO SCH (08:50)
[2017-10-23] MEDS: Clopidogrel Bisulfate 75 MG TAB PO SCH (08:50)
[2017-10-23] MEDS: Alogliptin 25 MG TAB PO SCH (08:50)
[2017-10-23] MEDS: Hydrochlorothiazide 25 MG TAB PO SCH (08:51)
[2017-10-23] MEDS: Losartan 25 MG TAB PO SCH (08:51)
[2017-10-23] MEDS: guaiFENesin ER 600 MG TAB PO SCH ×2 (08:51→20:17)
[2017-10-23] MEDS: Furosemide 40 MG TAB PO SCH (08:51)
[2017-10-23] MEDS: Metoprolol Tartrate 25 MG TAB PO SCH ×2 (08:52→20:17)
[2017-10-23] MEDS: cefTRIAXone\\ROCEPHIN 1 GM, Syringe 0.4 ML in Sterile Water 9.6 ML SLOW IVP SCH (08:57)
[2017-10-23] MEDS ORDERED: Sterile Water 10 ML ONE (11:47)
[2017-10-23] MEDS: Melatonin 3 MG TAB PO SCH (20:18)
[2017-10-23] MEDS: Simvastatin 20 MG TAB PO SCH (20:18)
[2017-10-23] MEDS ORDERED: Insulin Regular 300 UNITS/3 ML VIAL SC PRN (20:22)
[2017-10-24] MEDS: Insulin Regular 300 UNITS/3 ML VIAL SC PRN ×2 (05:28→11:50)
[2017-10-24] MEDS: Hydrochlorothiazide 25 MG TAB PO SCH (08:52)
[2017-10-24] MEDS: Alogliptin 25 MG TAB PO SCH (08:52)
[2017-10-24] MEDS: Clopidogrel Bisulfate 75 MG TAB PO SCH (08:52)
[2017-10-24] MEDS: Losartan 25 MG TAB PO SCH (08:52)
[2017-10-24] MEDS: Furosemide 40 MG TAB PO SCH (08:52)
[2017-10-24] MEDS: cefTRIAXone\\ROCEPHIN 1 GM, Syringe 0.4 ML in Sterile Water 9.6 ML SLOW IVP SCH (08:53)
[2017-10-24] MEDS: Amlodipine 10 MG TAB PO SCH (08:53)
[2017-10-24] MEDS: guaiFENesin ER 600 MG TAB PO SCH (08:53)
[2017-10-24] MEDS: Metoprolol Tartrate 25 MG TAB PO SCH (08:53)
[2017-10-24] MEDS ORDERED: Sterile Water 10 ML ONE (11:44)
[2017-10-24 12:14] VITALS: BP 135/59; TEMP 97.8
--- NOTE | 2017-10-26 12:40 | DIS ---
DATE OF ADMISSION: 10/22/2017 DATE OF DISCHARGE: 10/24/2017 ADMITTING DIAGNOSES: 1. Acute asthmatic bronchitis. 2. Hypertension. 3. Hypoxia. 4. Diabetes mellitus. 5. Coronary artery disease, status post coronary artery bypass graft. 6. Large hiatal hernia. FINAL DIAGNOSES: 1. Acute asthmatic bronchitis, improved. 2. Hypertension. 3. Hypoxia, improved. 4. Diabetes mellitus. 5. Coronary artery disease. 6. Large hiatal hernia. BRIEF SUMMARY OF HOSPITAL COURSE: Ms. Bailey is a 77-year-old female admitted because of shortness of breath, wheezing, and cough. The patient was found to have acute asthmatic bronchitis, started on nebulizer treatments, prednisone, steroids IV, and Mucinex. In the next 2 days, the patie nt markedly improved. Her chest wheezing resolved. Her cough improved. No fever. In view of impro vement, her Solu-Medrol dose was decreased and changed. Prednisone and neb treatments were changed t o inhalers. In view of improvement, the patient was discharged. At the time of discharge, she was s table. Her vital signs were stable. Lungs clear. Heart sounds regular. Abdomen was soft and nonte nder. Bowel sounds present. DISCHARGE MEDICATIONS: Include simvastatin 20 mg daily, losartan 100 mg daily, Plavix 75 mg daily, m etoprolol 25 b.i.d., glipizide 2.5 mg daily, amlodipine 10 mg daily, albuterol inhaler 2 puffs q.i.d. , hydrochlorothiazide 12.5 mg daily, Onglyza 5 mg daily, Mucinex 600 b.i.d. for 10 days, Protonix 40 mg b.i.d., Lasix 40 mg daily, prednisone in tapering doses. FOLLOWUP: The patient will come for followup in 2 weeks.
--- NOTE | 2017-10-31 14:38 | EKG ---
Test Reason : Blood Pressure : / mmHG Vent. Rate : 075 BPM Atrial Rate : 075 BPM P-R Int : 136 ms QRS Dur : 088 ms QT Int : 430 ms P-R-T Axes : 029 001 013 degrees QTc Int : 480 ms Sinus rhythm with Premature atrial complexes T wave abnormality, consider anterior ischemia Left axis deviation Abnormal ECG Confirmed by DAVIN JOHNSTON DO ([id number]), editorial writer LAILA TORRES ([id number]) on 10/31/2017 2:37:55 PM Referred By: DR JOHNSTON Confirmed By:DAVIN JOHNSTON DO
== END 2017-10-24 15:04 | disposition home or self-care (01) ==
LOC: ERS 10:19 → 2SW 16:02
PROVIDERS: ADMIT Internal Medicine; ATTEND Internal Medicine
DX: J45.901 Unspecified asthma with (acute) exacerbation (principal); I10 Essential (primary) hypertension; R09.02 Hypoxemia; E11.9 Type 2 diabetes mellitus without complications; I25.10 Atherosclerotic heart disease of native coronary artery without angina pectoris; K44.9 Diaphragmatic hernia without obstruction or gangrene; Z88.0 Allergy status to penicillin; Z95.1 Presence of aortocoronary bypass graft; Z79.84 Long term (current) use of oral hypoglycemic drugs; Z79.52 Long term (current) use of systemic steroids; Z79.02 Long term (current) use of antithrombotics/antiplatelets; Z79.899 Other long term (current) drug therapy
CPT/HCPCS: 71010; 80053; 82550; 82553; 82962 ×3; 83605; 83690; 83735; 84484; 85025; 87804 ×2; 93005; 94640 ×3; 94760; 96365; 96367; 96375; 96376 ×2; 99285; G0378; 36415; 36416; A4216; J0456; J0696; J1815; J2920; J2930; J3475; J7620

== ENCOUNTER 2018-06-11 10:10 | Inpatient (IN) | payer MEDICARE, OTHER ==
[2018-06-11 10:41] LABS: #Basophils 0.1 thou/uL (0.0-0.2); #Eosinphils 0.2 thou/uL (0.0-0.7); #Lymphocytes 2.8 thou/uL (1.20-3.40); #Monocytes 0.7 thou/uL (0.11-0.59); #Neutrophils 3.1 thou/uL (1.40-6.50); %Basophils 0.9 % (0.0-1.0); %Eosinophils 2.7 % (0.0-10.0); %Monocytes 10.1 % (0.0-10.0); %Neutrophils 45.4 % (42.0-75.0); Hemoglobin 13.4 g/dL (12.0-16.0); Mean Corpuscular HGB CONC 34.1 g/dL (32.0-36.0); Mean Corpuscular Hemoglobin 34.4 pg (27.0-31.0); Mean Platelet Volume 10.4 fL (7.4-10.4); Platelet Count 142 thou/uL (130-400); RBC Distribution Width 11.8 % (11.5-14.5); Red Blood Cell (RBC) Count 3.88 mill/uL (4.20-5.40); White Blood Cell (WBC) Count 6.8 thou/uL (4.8-10.8)
[2018-06-11] MEDS ORDERED: Albuterol Sulfate 2.5 mg/0.5 ml Neb ONE ×2 (11:03)
[2018-06-11 11:04] LABS: ALT (SGPT) 13 U/L (8-55); AST (SGOT) 17 U/L (5-34); Albumin 3.8 g/dL (3.4-4.8); Alkaline Phosphatase 58 U/L (40-150); Anion Gap 16 mmol/L (10-20); BUN (Urea Nitrogen) 12 mg/dL (9.8-20.1); Bilirubin, Total 0.5 mg/dL (0.2-1.2); CK (CPK) 73 U/L (29-168); Calc. Creatinine Clearance 0 mL/min (70-130); Calcium 8.6 mg/dL (7.8-10.44); Carbon Dioxide 23 mmol/L (23-31); Chloride 102 mmol/L (98-107); Estimated GFR-MDRD 47; Globulin 2.5 g/dL (2.4-3.5); Glucose 198 mg/dL (83-110); Protein, Total 6.3 g/dL (6.0-8.3); Sodium 138 mmol/L (136-145)
[2018-06-11 11:07] LABS: CKMB 1.4 ng/mL (0-6.6); Troponin I Less than 0.010 ng/mL (< 0.028)
[2018-06-11 11:12] LABS: Potassium 2.9 mmol/L (3.5-5.1)
[2018-06-11] MEDS ORDERED: HYDROcodone/Acetaminophen 10/325 mg Tablet ONE (11:41)
[2018-06-11] MEDS ORDERED: Water For Inject, Bacteriostat 0 ML ONE (11:41)
[2018-06-11] MEDS ORDERED: methylPREDNISolone Sod Succ/PF 125 MG/2 ML VIAL ONE (11:41)
--- NOTE | 2018-06-11 11:46 | RAD ---
PORTABLE CHEST 1 VIEW: Date: 06/11/18 Time: 1037 hours HISTORY: Chest pain. FINDINGS/IMPRESSION: Comparison made with exam of 10/22/17. There are changes of median sternotomy. The heart size is enlarged. Hiatal hernia is present. There i s mild patchy infiltrate in the right lower lung. No pneumothorax, alexander pulmonary edema, or large ef fusions are seen. POS: H
[2018-06-11] MEDS ORDERED: Ondansetron HCl/PF 4 MG/2 ML Vial IVP PRN (16:20)
[2018-06-11] MEDS ORDERED: Ondansetron ODT 4 MG TAB SL PRN (16:20)
[2018-06-11 16:48] VITALS: BMI 30.3
[2018-06-11] MEDS ORDERED: cefTRIAXone\\ROCEPHIN 2 GM in Sodium Chloride 0.9% 100 ML IVPB SCH (17:00)
[2018-06-11] MEDS ORDERED: Potassium Chloride 20 MEQ TAB PO SCH ×2 (17:00→21:00)
[2018-06-11] MEDS ORDERED: Azithromycin 500 MG in Sodium Chloride 0.9% 250 ML 250 ML IVPB SCH (18:00)
[2018-06-11] MEDS ORDERED: Dextrose 5% in Water 1,000 ML IV PRN (20:03)
[2018-06-11] MEDS ORDERED: Dextrose 50% Abboject 50 ML SYRINGE IVP PRN (20:03)
[2018-06-11] MEDS: hydrALAZINE 25 MG TAB PO SCH (20:31)
[2018-06-11] MEDS: HYDROcodone/Acetaminophen 10/325 mg Tablet PO PRN (20:32)
[2018-06-11] MEDS: Metoprolol Tartrate 25 MG TAB PO SCH (20:33)
[2018-06-11] MEDS: Potassium Chloride 20 MEQ TAB PO SCH (20:33)
[2018-06-11] MEDS: Atorvastatin Calcium 10 MG TAB PO SCH (20:33)
[2018-06-11] MEDS: Insulin Regular 300 UNITS/3 ML VIAL SC PRN (20:37)
[2018-06-12] MEDS: Potassium Chloride 20 MEQ TAB PO SCH ×5 (01:18→17:32)
[2018-06-12 04:29] LABS: #Lymphocytes 1.4 thou/uL (1.20-3.40); #Monocytes 0.5 thou/uL (0.11-0.59); #Neutrophils 3.5 thou/uL (1.40-6.50); %Basophils 0.2 % (0.0-1.0); %Eosinophils 0.3 % (0.0-10.0); %Lymphocytes 25.6 % (21.0-51.0); %Monocytes 9.3 % (0.0-10.0); %Neutrophils 64.7 % (42.0-75.0); Hemoglobin 12.2 g/dL (12.0-16.0); Mean Corpuscular HGB CONC 35.6 g/dL (32.0-36.0); Mean Corpuscular Hemoglobin 35.5 pg (27.0-31.0); Mean Corpuscular Volume 99.7 fL (78.0-98.0); Mean Platelet Volume 9.7 fL (7.4-10.4); Platelet Count 144 thou/uL (130-400); RBC Distribution Width 11.8 % (11.5-14.5); Red Blood Cell (RBC) Count 3.44 mill/uL (4.20-5.40); White Blood Cell (WBC) Count 5.5 thou/uL (4.8-10.8)
[2018-06-12 04:53] LABS: Anion Gap 14 mmol/L (10-20); BUN (Urea Nitrogen) 26 mg/dL (9.8-20.1); Calc. Creatinine Clearance 24 mL/min (70-130); Calcium 8.6 mg/dL (7.8-10.44); Carbon Dioxide 21 mmol/L (23-31); Chloride 105 mmol/L (98-107); Estimated GFR-MDRD 21; Glucose 260 mg/dL (83-110); Potassium 3.2 mmol/L (3.5-5.1); Sodium 137 mmol/L (136-145)
[2018-06-12] MEDS: Insulin Regular 300 UNITS/3 ML VIAL SC PRN (05:15)
[2018-06-12] MEDS: Losartan 25 MG TAB PO SCH (07:37)
[2018-06-12] MEDS: hydrALAZINE 25 MG TAB PO SCH ×2 (07:39→21:46)
[2018-06-12] MEDS: Hydrochlorothiazide 25 MG TAB PO SCH (07:39)
[2018-06-12] MEDS: Metoprolol Tartrate 25 MG TAB PO SCH ×2 (07:39→21:46)
[2018-06-12] MEDS: Clopidogrel Bisulfate 75 MG TAB PO SCH (07:40)
[2018-06-12] MEDS: Amlodipine 10 MG TAB PO SCH (07:40)
[2018-06-12] MEDS: Alogliptin 25 MG TAB PO SCH (08:10)
[2018-06-12] MEDS ORDERED: Furosemide 40 MG TAB PO SCH (09:00)
--- NOTE | 2018-06-12 14:23 | HP ---
DATE OF ADMISSION: 06/11/2018 CHIEF COMPLAINT: Chest pain, cough, fever. HISTORY OF PRESENT ILLNESS: Ms. Bailey is a 77-year-old female with past medical history of coronary artery disease, hypertension, diabetes mellitus , who came in because of cough, congestion, going on for few days and low grade fever of 100, but also developed some intermittent chest pain while she was in the store and feeling a bit dizzy, felt like passing out. Also has severe back pain. The cough is productive with yellow sputum and going on for few days and not getting any better, and also has been using inhaler, so the back pain started because of coughing. The patient came to the emergency room where she was evaluated and found to have possible pneumonia in the right lower lobe as well as severe hypokalemia with potassium of 2.9. The patient received a dose of potassium, DuoNeb treatments, Solu-Medrol, also antibiotic Rocephin and Zithromax. The patient is admitted for further evaluation and management. PAST MEDICAL HISTORY: 1. Hypertension. 2. Diabetes mellitus. 3. Coronary artery disease, status post coronary artery bypass graft. 4. Hyperlipidemia. 5. History of asthmatic bronchitis. PAST SURGICAL HISTORY: Status post CABG. CURRENT MEDICATIONS: The patient is on amlodipine 10 mg daily, aspirin 81 mg daily, vitamin D daily 5000 units, Plavix 75 mg daily, Lasix 40 mg daily, glipizide 2.5 mg daily, hydralazine 50 b.i.d., hydrochlorothiazide 12.5 daily, losartan 100 mg daily, metformin 500 b.i.d., albuterol inhaler two puffs q.i.d. p.r.n., metoprolol 25 b.i.d., Protonix 40 b.i.d., Onglyza 5 mg daily, sertraline 50 mg daily, simvastatin 20 mg daily. ALLERGIES: PENICILLIN. FAMILY HISTORY: Nothing of interest. SOCIAL HISTORY: The patient lives with family. No history of smoking. No history of alcohol abuse. REVIEW OF SYSTEMS: Cardiovascular: Has chest pain, shortness of breath. Respiratory: Has cough, fever. Gastrointestinal: Has some nausea and no abdominal pain. Genitourinary: No dysuria or hematuria. Central nervous system: Has headache and dizziness. PHYSICAL EXAMINATION: GENERAL: The patient is alert, awake and oriented x3. VITAL SIGNS: Temperature 98, pulse 58, respirations 20, blood pressure 120/70, O2 saturation 95% on room air. HEENT: Head is normocephalic, atraumatic. Pupils are equal and reactive to light. Nasopharynx is pale and dry. NECK: Supple. No JVD. LUNGS: Bilateral air entry present, rhonchi present bilaterally and crackles also present. HEART: S1, S2 regular. ABDOMEN: Soft, no distention, no tenderness. Normal bowel sounds. CENTRAL NERVOUS SYSTEM: No focal deficits. LABORATORY DATA AND IMAGING DATA: CBC shows WBC 6.8, hemoglobin 13, hematocrit 42.2, platelets 142. Metabolic panel: Sodium 138, potassium 2.9, chloride 102 , CO2 of 22, urea nitrogen 12, creatinine 1.1, glucose 198, CK-MB 1.4, troponin I less than 0.010. EKG shows normal sinus rhythm, no acute ST-T wave changes seen. Chest x-ray shows mild patchy infiltrate in the right lower lobe. ASSESSMENT: 1. Possible pneumonia, right lower lobe. 2. Severe hypokalemia. 3. Chest pain, rule out myocardial infarction. 4. Back pain secondary to coughing. 5. Possible asthmatic bronchitis. 6. Hypertension. 7. Diabetes mellitus. 8. Coronary artery disease, status post coronary artery bypass grafting. 9. acute kidney injury PLAN: 1. Vital signs q.4 hours. 2. Activity: As tolerated. 3. Allergies: PENICILLIN. 4. Diet: ADA. 5. Rocephin 1 gram IV piggyback daily, Zithromax 500 mg IV piggyback daily. 6. DuoNeb 1 unit q.i.d. 7. Continue home medications. 8. Accu-Cheks a.c. and at bedtime. 9. Sliding scale mild with regular insulin. 10. [place] 10/325 q.i.d. p.r.n. 11. KCl replacement. 12. We will obtain base met and CBC in the morning pt has pneumonia with comorbid conditions. her stay in the hospital willbe more than 2 midnights. DAVID
[2018-06-12] MEDS: HYDROcodone/Acetaminophen 10/325 mg Tablet PO PRN (14:48)
[2018-06-12] MEDS: cefTRIAXone\\ROCEPHIN 1 GM in Sodium Chloride 0.9% 100 ML IVPB SCH (17:32)
[2018-06-12] MEDS: Azithromycin 500 MG in Sodium Chloride 0.9% 250 ML 250 ML IVPB SCH (18:24)
[2018-06-12] MEDS: Atorvastatin Calcium 10 MG TAB PO SCH (21:46)
[2018-06-13 05:22] LABS: Anion Gap 11 mmol/L (10-20); BUN (Urea Nitrogen) 28 mg/dL (9.8-20.1); Calc. Creatinine Clearance 32 mL/min (70-130); Calcium 8.6 mg/dL (7.8-10.44); Carbon Dioxide 26 mmol/L (23-31); Chloride 106 mmol/L (98-107); Estimated GFR-MDRD 30; Glucose 129 mg/dL (83-110); Potassium 3.4 mmol/L (3.5-5.1); Sodium 140 mmol/L (136-145)
[2018-06-13] MEDS: Hydrochlorothiazide 25 MG TAB PO SCH (08:57)
[2018-06-13] MEDS: Losartan 25 MG TAB PO SCH (08:57)
[2018-06-13] MEDS: Alogliptin 25 MG TAB PO SCH (08:59)
[2018-06-13] MEDS: hydrALAZINE 25 MG TAB PO SCH ×4 (09:01→20:27)
[2018-06-13] MEDS: Metoprolol Tartrate 25 MG TAB PO SCH ×2 (09:02→20:33)
[2018-06-13] MEDS: Clopidogrel Bisulfate 75 MG TAB PO SCH (09:04)
[2018-06-13] MEDS: Amlodipine 10 MG TAB PO SCH (09:05)
[2018-06-13] MEDS: cefTRIAXone\\ROCEPHIN 1 GM in Sodium Chloride 0.9% 100 ML IVPB SCH (17:58)
[2018-06-13] MEDS: Azithromycin 500 MG in Sodium Chloride 0.9% 250 ML 250 ML IVPB SCH (17:59)
[2018-06-13] MEDS: Potassium Chloride 20 MEQ TAB PO SCH ×2 (18:00→23:46)
[2018-06-13] MEDS: HYDROcodone/Acetaminophen 10/325 mg Tablet PO PRN (20:28)
[2018-06-13] MEDS: Atorvastatin Calcium 10 MG TAB PO SCH (20:32)
[2018-06-14 05:02] LABS: Anion Gap 12 mmol/L (10-20); BUN (Urea Nitrogen) 22 mg/dL (9.8-20.1); Calc. Creatinine Clearance 46 mL/min (70-130); Calcium 8.8 mg/dL (7.8-10.44); Carbon Dioxide 27 mmol/L (23-31); Chloride 105 mmol/L (98-107); Estimated GFR-MDRD 45; Glucose 86 mg/dL (83-110); Potassium 3.9 mmol/L (3.5-5.1); Sodium 140 mmol/L (136-145)
[2018-06-14] MEDS: hydrALAZINE 25 MG TAB PO SCH ×2 (10:00→20:13)
[2018-06-14] MEDS: Amlodipine 10 MG TAB PO SCH (10:00)
[2018-06-14] MEDS: Alogliptin 25 MG TAB PO SCH (10:00)
[2018-06-14] MEDS: Losartan 25 MG TAB PO SCH (10:00)
[2018-06-14] MEDS: Hydrochlorothiazide 25 MG TAB PO SCH (10:00)
[2018-06-14] MEDS: Metoprolol Tartrate 25 MG TAB PO SCH ×2 (10:00→20:13)
[2018-06-14] MEDS: Clopidogrel Bisulfate 75 MG TAB PO SCH (10:33)
[2018-06-14] MEDS: cefTRIAXone\\ROCEPHIN 1 GM in Sodium Chloride 0.9% 100 ML IVPB SCH (16:27)
[2018-06-14] MEDS: HYDROcodone/Acetaminophen 10/325 mg Tablet PO PRN (16:27)
[2018-06-14] MEDS: Insulin Regular 300 UNITS/3 ML VIAL SC PRN (17:01)
[2018-06-14] MEDS: Azithromycin 500 MG in Sodium Chloride 0.9% 250 ML 250 ML IVPB SCH (18:02)
[2018-06-14] MEDS: Atorvastatin Calcium 10 MG TAB PO SCH (20:13)
[2018-06-15 05:19] LABS: Anion Gap 13 mmol/L (10-20); BUN (Urea Nitrogen) 14 mg/dL (9.8-20.1); Calc. Creatinine Clearance 71 mL/min (70-130); Calcium 8.9 mg/dL (7.8-10.44); Carbon Dioxide 27 mmol/L (23-31); Chloride 101 mmol/L (98-107); Estimated GFR-MDRD 74; Glucose 137 mg/dL (83-110); Potassium 3.6 mmol/L (3.5-5.1); Sodium 137 mmol/L (136-145)
[2018-06-15] MEDS: Losartan 25 MG TAB PO SCH (09:11)
[2018-06-15] MEDS: hydrALAZINE 25 MG TAB PO SCH ×2 (09:11→20:52)
[2018-06-15] MEDS ORDERED: Ondansetron HCl/PF 4 MG/2 ML Vial SLOW IVP PRN (09:11)
[2018-06-15] MEDS: Metoprolol Tartrate 25 MG TAB PO SCH ×2 (09:11→20:52)
[2018-06-15] MEDS: Amlodipine 10 MG TAB PO SCH (09:11)
[2018-06-15] MEDS: Alogliptin 25 MG TAB PO SCH (09:14)
[2018-06-15] MEDS: Clopidogrel Bisulfate 75 MG TAB PO SCH (09:18)
[2018-06-15] MEDS: Hydrochlorothiazide 25 MG TAB PO SCH (09:18)
[2018-06-15] MEDS: cefTRIAXone\\ROCEPHIN 1 GM in Sodium Chloride 0.9% 100 ML IVPB SCH (17:07)
[2018-06-15] MEDS: Azithromycin 500 MG in Sodium Chloride 0.9% 250 ML 250 ML IVPB SCH (18:25)
[2018-06-15] MEDS: Atorvastatin Calcium 10 MG TAB PO SCH (20:52)
[2018-06-16] MEDS: Losartan 25 MG TAB PO SCH (08:13)
[2018-06-16] MEDS: Alogliptin 25 MG TAB PO SCH (08:13)
[2018-06-16] MEDS: Hydrochlorothiazide 25 MG TAB PO SCH (08:14)
[2018-06-16] MEDS: hydrALAZINE 25 MG TAB PO SCH (08:15)
[2018-06-16] MEDS: Amlodipine 10 MG TAB PO SCH (08:15)
[2018-06-16] MEDS: Metoprolol Tartrate 25 MG TAB PO SCH (08:16)
[2018-06-16] MEDS: Clopidogrel Bisulfate 75 MG TAB PO SCH (08:16)
[2018-06-16 08:49] VITALS: BP 121/69; TEMP 97.9
--- NOTE | 2018-06-17 01:32 | DIS ---
DATE OF ADMISSION: 06/11/2018 DATE OF DISCHARGE: 06/16/2018 ADMITTING DIAGNOSES: 1. Pneumonia, right lower lobe. 2. Severe hypokalemia. 3. Chest pain, rule out myocardial infarction. 4. Back pain secondary to cough. 5. Possible asthmatic bronchitis. 6. Hypertension. 7. Diabetes mellitus. 8. Coronary artery disease, status post coronary artery bypass graft. 9. Acute kidney injury. FINAL DIAGNOSES: 1. Pneumonia, right lobe, improved. 2. Severe hypokalemia, corrected. 3. Chest pain. No evidence of acute myocardial infarction. 4. Acute kidney injury, improved. 5. Back pain secondary to coughing improved. 6. Bronchitis, improved. 7. Hypertension. 8. Diabetes mellitus. 9. Coronary artery disease, status post coronary artery bypass grafting. BRIEF SUMMARY OF HOSPITAL COURSE: Ms. Bailey is a 77-year-old female admitted because of cough, congestion, chest pain secondary to coughing as well as back pain. The patient was found to have pneumonia. She was on IV antibiotics with Rocephin and Zithromax. The patient is to continue with DuoNeb treatments, given [place] for pain. The patient was also found to have hypokalemia with potassium of 2.9. The patient was given potassium replacement , it went up to 3.2. She was given more replacement today and went up to 3.9. The patient's cough improved and shortness of breath improved in next few days , had no fever. She has tolerated diet very well. In view of improvement, the patient is being discharged home. At the time of the discharge, she was stable. Her vital sings stable. Lungs were clear. Heart sounds regular. Abdomen is soft, nontender. Bowel sounds present. DISCHARGE MEDICATIONS: losartan 100 mg daily, Plavix 75 mg daily, metoprolol 25 b.i.d., glipizide 2.5 mg daily, amlodipine 10 mg daily, albuterol inhaler 2 puffs q.i.d., hydrochlorothiazide 12.5 daily, Onglyza 5 mg daily, Protonix 40 mg b.i.d., Lasix 40 mg daily, metformin 500 mg b.i.d., sertraline 50 mg daily, vitamin D 5000 units daily, aspirin 81 mg daily, hydralazine 50 b.i.d., levofloxacin 750 daily for 5 days. FOLLOWUP: The patient will come for followup in 2 days. MTDD
== END 2018-06-16 09:53 | disposition home or self-care (01) | DRG 194 ==
LOC: ERS 10:10 → 2SW 11:30 → OBSVTOIN 11:30 → T4-A 06-12 16:32
PROVIDERS: ADMIT Internal Medicine; ATTEND Internal Medicine
DX: J18.9 Pneumonia, unspecified organism (principal); N17.9 Acute kidney failure, unspecified; I10 Essential (primary) hypertension; E11.9 Type 2 diabetes mellitus without complications; E78.5 Hyperlipidemia, unspecified; I25.10 Atherosclerotic heart disease of native coronary artery without angina pectoris; Z95.1 Presence of aortocoronary bypass graft; Z88.0 Allergy status to penicillin; E87.6 Hypokalemia
CPT/HCPCS: 36415; 36416; 71045; 80048; 80053; 82553; 84484; 85025; 93005; 94640; 96374; A4216; J0456; J0696; J1815; J2930; J7050; J7611; J7620; Q0162

== ENCOUNTER 2019-04-27 09:18 | Emergency (ER) | payer MEDICARE, OTHER ==
--- NOTE | 2019-04-27 10:51 | CT ---
CT brain HISTORY: Headache and nausea and dehydration. Noncontrast enhanced CT images of the brain obtained. The brain is unremarkable. No evidence of intracranial masses or hemorrhages strokes or contusion see n. Ventricles are of normal size. IMPRESSION: normal CT brain.
[2019-04-27] MEDS ORDERED: Ketorolac Tromethamine 30 MG/ML VIAL ONE (11:43)
[2019-04-27] MEDS ORDERED: Acetaminophen 500 MG TAB ONE ×2 (11:43→11:47)
[2019-04-27] MEDS ORDERED: Ondansetron PF 4 MG/2 ML Vial ONE (11:43)
== END 2019-04-27 12:16 | disposition home or self-care (01) ==
LOC: ERS 09:18
DX: R51 Headache (principal); J44.9 Chronic obstructive pulmonary disease, unspecified; I25.2 Old myocardial infarction; K21.9 Gastro-esophageal reflux disease without esophagitis; E11.9 Type 2 diabetes mellitus without complications; E78.5 Hyperlipidemia, unspecified; I11.0 Hypertensive heart disease with heart failure; I50.9 Heart failure, unspecified
CPT/HCPCS: 70450; 96374; J1885; J2405

== ENCOUNTER 2019-09-25 19:13 | Emergency (ER) | payer MEDICARE, OTHER ==
--- NOTE | 2019-09-25 21:17 | RAD ---
THREE VIEWS LEFT ANKLE: History: Pain. Comparison: None. FINDINGS: Mild bone demineralization. Ankle mortise is intact. Joint spaces are preserved. No fracture. IMPRESSION: Unremarkable three views left ankle. POS: [facility]
--- NOTE | 2019-09-25 21:19 | CT ---
CT CERVICAL SPINE WITH CORONAL AND SAGITTAL REFORMATIONS: History: Fall. Neck pain. FINDINGS/IMPRESSION: Degenerative changes are present. There are no fractures, subluxation, or malalignment identified. POS: [facility]
--- NOTE | 2019-09-25 21:40 | CT ---
CT BRAIN WITHOUT CONTRAST: Date: 09/25/19 HISTORY: Headache, injury. FINDINGS: Comparison made with exam of 04/27/19. No evidence of acute infarct, hemorrhage, midline shift, or abnormal extra-axial fluid collections ar e seen. The ventricular size is normal and the basilar cisterns are patent. There are changes of mild chronic small vessel ischemic disease in the periventricular white matter. The bony calvarium is int act. The visualized paranasal sinuses are well aerated. There is mucosal disease in the sphenoid sinu s. IMPRESSION: No CT evidence of acute intracranial process. POS: [facility]
--- NOTE | 2019-09-25 21:42 | CT ---
CT LUMBAR SPINE WITH CORONAL AND SAGITTAL REFORMATIONS: Date: 09/25/19 HISTORY: Fall, low back pain. FINDINGS/IMPRESSION: Degenerative changes are present. No fracture or subluxation is seen in the lumbar spine. There is co mpression of the superior end plate of T12 vertebral body without retropulsion. This has a chronic ap pearance. Clinical correlation is recommended. POS: [facility]
== END 2019-09-25 22:28 | disposition home or self-care (01) ==
LOC: ERS 19:13
DX: S09.90XA Unspecified injury of head, initial encounter (principal); S22.089A Unspecified fracture of T11-T12 vertebra, initial encounter for closed fracture; J44.9 Chronic obstructive pulmonary disease, unspecified; E78.5 Hyperlipidemia, unspecified; I25.2 Old myocardial infarction; E11.9 Type 2 diabetes mellitus without complications; I11.0 Hypertensive heart disease with heart failure; I50.9 Heart failure, unspecified; K21.9 Gastro-esophageal reflux disease without esophagitis; Z79.82 Long term (current) use of aspirin; Z79.51 Long term (current) use of inhaled steroids; Z79.899 Other long term (current) drug therapy; Z79.01 Long term (current) use of anticoagulants; W01.0XXA Fall on same level from slipping, tripping and stumbling without subsequent striking against object, initial encounter
CPT/HCPCS: 70450; 72125; 72131

== ENCOUNTER 2021-07-16 23:40 | Inpatient (IN) | payer MEDICARE, MEDICAID ==
[2021-07-16] MEDS ORDERED: Pantoprazole 40 MG VIAL ONE (23:48)
[2021-07-16] MEDS ORDERED: Ondansetron PF 4 MG/2 ML Vial ONE (23:48)
[2021-07-17] MEDS ORDERED: Promethazine HCl 25 MG/ML VIAL ONE (00:22)
[2021-07-17 00:24] LABS: ALT (SGPT) 7 U/L (8-55); AST (SGOT) 9 U/L (5-34); Albumin 3.1 g/dL (3.4-4.8); Alkaline Phosphatase 55 U/L (40-110); Anion Gap 13 mmol/L (10-20); BUN (Urea Nitrogen) 24 mg/dL (9.8-20.1); Bilirubin, Total 0.3 mg/dL (0.2-1.2); Calc. Creatinine Clearance 0 mL/min (70-130); Calcium 8.2 mg/dL (7.8-10.44); Carbon Dioxide 19 mmol/L (23-31); Chloride 111 mmol/L (98-107); Globulin 1.6 g/dL (2.4-3.5); Glucose 250 mg/dL (83-110); Potassium 4.3 mmol/L (3.5-5.1); Protein, Total 4.7 g/dL (5.8-8.1); Sodium 139 mmol/L (136-145)
[2021-07-17 00:26] LABS: INR-International Normal Ratio 1.2; PTT 24.7 sec (22.9-36.1); Prothrombin Time 14.7 sec (12.0-14.7)
[2021-07-17 00:42] LABS: #Eosinphils 0.3 thou/uL (0.0-0.7); #Lymphocytes 4.3 thou/uL (1.20-3.40); #Monocytes 1.2 thou/uL (0.11-0.59); #Neutrophils 11.3 thou/uL (1.40-6.50); %Basophils 0.2 % (0.0-1.0); %Eosinophils 1.7 % (0.0-10.0); %Lymphocytes 25.1 % (21.0-51.0); %Monocytes 6.9 % (0.0-10.0); %Neutrophils 66.1 % (42.0-75.0); Hemoglobin 7.9 g/dL (12.0-16.0); MDiff Complete? YES; Macrocytosis MODERATE=16-30 cells (100X) (0-5/hpf); Mean Corpuscular Hemoglobin 36.1 pg (27.0-31.0); Mean Platelet Volume 11.3 fL (7.4-10.4); Platelet Count 195 thou/uL (130-400); Platelet Morphology Comment Appears Adequate; RBC Distribution Width 11.8 % (11.5-14.5); Red Blood Cell (RBC) Count 2.19 mill/uL (4.20-5.40); White Blood Cell (WBC) Count 17.1 thou/uL (4.8-10.8)
[2021-07-17] MEDS ORDERED: Norepinephrine 8 MG/0.9% NS 250 ML ONE (00:51)
[2021-07-17] MEDS ORDERED: Calcium Chloride 1 GM/10 ML Abboject SYRINGE ONE ×2 (02:51→02:55)
[2021-07-17] MEDS ORDERED: Ondansetron ODT 4 MG TAB PO PRN (03:10)
[2021-07-17] MEDS ORDERED: Acetaminophen 650 MG Suppository PR PRN (03:10)
[2021-07-17] MEDS ORDERED: Acetaminophen 325 MG TAB PO PRN (03:10)
[2021-07-17] MEDS ORDERED: Ondansetron PF 4 MG/2 ML Vial IVP PRN (03:10)
[2021-07-17 04:07] LABS: #Eosinphils 0.1 thou/uL (0.0-0.7); #Lymphocytes 1.7 thou/uL (1.20-3.40); #Neutrophils 14.5 thou/uL (1.40-6.50); %Basophils 0.2 % (0.0-1.0); %Eosinophils 0.6 % (0.0-10.0); %Lymphocytes 9.5 % (21.0-51.0); %Monocytes 5.7 % (0.0-10.0); Mean Corpuscular HGB CONC 33.7 g/dL (32.0-36.0); Mean Corpuscular Hemoglobin 32.6 pg (27.0-31.0); Mean Corpuscular Volume 96.6 fL (78.0-98.0); Mean Platelet Volume 11.1 fL (7.4-10.4); Platelet Count 121 thou/uL (130-400); RBC Distribution Width 14.7 % (11.5-14.5); White Blood Cell (WBC) Count 17.3 thou/uL (4.8-10.8)
[2021-07-17 04:24] LABS: Anion Gap 12 mmol/L (10-20); BUN (Urea Nitrogen) 27 mg/dL (9.8-20.1); Calc. Creatinine Clearance 0 mL/min (70-130); Carbon Dioxide 19 mmol/L (23-31); Chloride 114 mmol/L (98-107); Glucose 212 mg/dL (83-110); Potassium 4.5 mmol/L (3.5-5.1); Sodium 140 mmol/L (136-145)
[2021-07-17 04:38] VITALS: BMI 26.1
[2021-07-17] MEDS ORDERED: Dextrose 5% in Water 1,000 ML IV PRN (04:41)
[2021-07-17] MEDS ORDERED: HumaLOG 300 UNITS/3 ML VIAL SC PRN (04:41)
[2021-07-17] MEDS ORDERED: Dextrose 50% Abboject 50 ML SYRINGE SLOW IVP PRN (04:41)
[2021-07-17] MEDS ORDERED: Vancomycin 1.5 GRAM/300 ML BAG 1.5 GM in Premix Bag 1 BAG IVPB SCH (04:53)
[2021-07-17] MEDS: Vancomycin 1 GM in Premix Bag 1 BAG IVPB SCH (05:34)
[2021-07-17] MEDS: Cefepime 2 GM in Sodium Chloride 0.9% 100 ML IVPB SCH ×2 (05:34→17:26)
[2021-07-17] MEDS ORDERED: Pantoprazole 40 MG VIAL IVP SCH ×2 (09:00→21:00)
[2021-07-17 09:44] LABS: Mean Corpuscular HGB CONC 33.7 g/dL (32.0-36.0); Mean Platelet Volume 11.5 fL (7.4-10.4); Platelet Count 109 thou/uL (130-400); RBC Distribution Width 15.5 % (11.5-14.5); Red Blood Cell (RBC) Count 3.74 mill/uL (4.20-5.40); White Blood Cell (WBC) Count 15.6 thou/uL (4.8-10.8)
[2021-07-17] MEDS ORDERED: Pantoprazole 80 MG in Sodium Chloride 0.9% 100 ML IVPB SCH (11:00)
[2021-07-17] MEDS: Furosemide 20 MG/2 ML VIAL SLOW IVP SCH (11:59)
[2021-07-17] MEDS: HumaLOG 300 UNITS/3 ML VIAL SC PRN (12:05)
[2021-07-17] MEDS ORDERED: PROPOFOL 200 MG/20 ML VIAL ONE (14:08)
[2021-07-17] MEDS ORDERED: Ondansetron PF 4 MG/2 ML Vial ONE (14:08)
[2021-07-17] MEDS ORDERED: Succinylcholine 200 MG/10 ml SYRINGE FS ONE (14:08)
[2021-07-17] MEDS ORDERED: Lidocaine 1% PF 5 ML VIAL ONE (14:08)
[2021-07-17] MEDS ORDERED: PHENYLEPHRINE-NS 100 MCG/ML 10 ML SYRINGE ONE (14:08)
[2021-07-17 15:14] LABS: #Eosinphils 0.1 thou/uL (0.0-0.7); #Lymphocytes 3.6 thou/uL (1.20-3.40); #Monocytes 1.2 thou/uL (0.11-0.59); #Neutrophils 10.6 thou/uL (1.40-6.50); %Basophils 0.3 % (0.0-1.0); %Eosinophils 0.9 % (0.0-10.0); %Lymphocytes 22.9 % (21.0-51.0); %Monocytes 7.8 % (0.0-10.0); %Neutrophils 68.3 % (42.0-75.0); Hemoglobin 12.3 g/dL (12.0-16.0); Mean Corpuscular HGB CONC 34.3 g/dL (32.0-36.0); Mean Corpuscular Hemoglobin 32.6 pg (27.0-31.0); Mean Corpuscular Volume 94.9 fL (78.0-98.0); Mean Platelet Volume 11.3 fL (7.4-10.4); Platelet Count 111 thou/uL (130-400); RBC Distribution Width 15.8 % (11.5-14.5); Red Blood Cell (RBC) Count 3.79 mill/uL (4.20-5.40); White Blood Cell (WBC) Count 15.5 thou/uL (4.8-10.8)
[2021-07-17 15:22] LABS: Bacteria/HPF None Seen HPF (None Seen); Bilirubin Negative (Negative); Blood, Urine Negative (Negative); Clarity Clear (Clear); Glucose, Urine (Dipstick) Normal (Negative); Ketone, Urine Negative (Negative); Leukocyte 25 Leu/uL (Negative); Nitrite Negative (Negative); Protein, Urine (Dipstick) Negative (Neg-Trace); RBC/HPF 0-3 HPF (0-3); Specific Gravity, Urine 1.007 (1.002-1.036); Squamous Epithelial 0-3 HPF (0-3); Urobilinogen Normal mg/dL (Less than 2); WBC/HPF 0-3 HPF (0-3)
[2021-07-17 15:25] LABS: Urine Culture Reflex Yes Yes
[2021-07-17] MEDS: Pantoprazole 40 MG VIAL IVP SCH (21:04)
[2021-07-17 21:46] LABS: Hemoglobin 11.2 g/dL (12.0-16.0); Mean Corpuscular HGB CONC 34.1 g/dL (32.0-36.0); Mean Corpuscular Hemoglobin 32.4 pg (27.0-31.0); Mean Platelet Volume 11.7 fL (7.4-10.4); Platelet Count 111 thou/uL (130-400); Red Blood Cell (RBC) Count 3.47 mill/uL (4.20-5.40); White Blood Cell (WBC) Count 12.1 thou/uL (4.8-10.8)
[2021-07-18] MEDS: Vancomycin 1 GM in Premix Bag 1 BAG IVPB SCH (05:31)
[2021-07-18] MEDS: Cefepime 2 GM in Sodium Chloride 0.9% 100 ML IVPB SCH ×2 (05:50→18:20)
[2021-07-18] MEDS: Pantoprazole 40 MG VIAL IVP SCH ×2 (08:25→23:30)
[2021-07-18] MEDS: Furosemide 20 MG/2 ML VIAL SLOW IVP SCH (08:25)
[2021-07-18 09:52] LABS: Hemoglobin 11.3 g/dL (12.0-16.0); Mean Corpuscular HGB CONC 34.5 g/dL (32.0-36.0); Mean Corpuscular Hemoglobin 33.1 pg (27.0-31.0); Mean Corpuscular Volume 96.1 fL (78.0-98.0); Mean Platelet Volume 10.9 fL (7.4-10.4); Platelet Count 109 thou/uL (130-400); RBC Distribution Width 15.9 % (11.5-14.5); Red Blood Cell (RBC) Count 3.42 mill/uL (4.20-5.40)
[2021-07-18 23:55] LABS: Hemoglobin 11.3 g/dL (12.0-16.0); Mean Corpuscular HGB CONC 33.9 g/dL (32.0-36.0); Mean Corpuscular Hemoglobin 32.7 pg (27.0-31.0); Mean Corpuscular Volume 96.3 fL (78.0-98.0); Mean Platelet Volume 10.8 fL (7.4-10.4); Platelet Count 111 thou/uL (130-400); RBC Distribution Width 15.8 % (11.5-14.5); Red Blood Cell (RBC) Count 3.47 mill/uL (4.20-5.40); White Blood Cell (WBC) Count 8.2 thou/uL (4.8-10.8)
[2021-07-19] MEDS: Cefepime 2 GM in Sodium Chloride 0.9% 100 ML IVPB SCH ×2 (05:04→16:15)
[2021-07-19 05:50] LABS: Vancomycin, Trough 8.4 ug/mL
[2021-07-19] MEDS: Vancomycin 1 GM in Premix Bag 1 BAG IVPB SCH (06:16)
[2021-07-19] MEDS: Furosemide 20 MG/2 ML VIAL SLOW IVP SCH (08:29)
[2021-07-19] MEDS: Pantoprazole 40 MG VIAL IVP SCH ×2 (08:30→20:58)
[2021-07-19 11:51] LABS: Hemoglobin 12.4 g/dL (12.0-16.0); Mean Corpuscular HGB CONC 34.5 g/dL (32.0-36.0); Mean Corpuscular Hemoglobin 33.4 pg (27.0-31.0); Mean Corpuscular Volume 96.9 fL (78.0-98.0); Mean Platelet Volume 10.6 fL (7.4-10.4); Platelet Count 116 thou/uL (130-400); RBC Distribution Width 15.5 % (11.5-14.5); Red Blood Cell (RBC) Count 3.71 mill/uL (4.20-5.40); White Blood Cell (WBC) Count 7.6 thou/uL (4.8-10.8)
[2021-07-19 21:37] LABS: Hemoglobin 11.1 g/dL (12.0-16.0); Mean Corpuscular HGB CONC 34.8 g/dL (32.0-36.0); Mean Corpuscular Hemoglobin 33.7 pg (27.0-31.0); Mean Corpuscular Volume 96.9 fL (78.0-98.0); Mean Platelet Volume 10.7 fL (7.4-10.4); Platelet Count 120 thou/uL (130-400); RBC Distribution Width 15.6 % (11.5-14.5); Red Blood Cell (RBC) Count 3.29 mill/uL (4.20-5.40); White Blood Cell (WBC) Count 6.9 thou/uL (4.8-10.8)
[2021-07-20] MEDS: Cefepime 2 GM in Sodium Chloride 0.9% 100 ML IVPB SCH (04:58)
[2021-07-20] MEDS ORDERED: VANCOMYCIN 1.25 GM/250 ML BAG 1.25 GM in Premix Bag 1 BAG IVPB SCH (06:00)
[2021-07-20] MEDS: Furosemide 20 MG/2 ML VIAL SLOW IVP SCH (09:12)
[2021-07-20] MEDS: Pantoprazole 40 MG VIAL IVP SCH (09:12)
[2021-07-20 11:40] VITALS: BP 138/58; TEMP 98.1
[2021-07-20] MEDS: HumaLOG 300 UNITS/3 ML VIAL SC PRN (12:45)
[2021-07-20 13:16] LABS: Hemoglobin 9.6 g/dL (12.0-16.0); Mean Corpuscular HGB CONC 34.4 g/dL (32.0-36.0); Mean Corpuscular Hemoglobin 33.6 pg (27.0-31.0); Mean Corpuscular Volume 97.6 fL (78.0-98.0); Mean Platelet Volume 10.8 fL (7.4-10.4); Platelet Count 104 thou/uL (130-400); RBC Distribution Width 15.4 % (11.5-14.5); Red Blood Cell (RBC) Count 2.86 mill/uL (4.20-5.40); White Blood Cell (WBC) Count 6.3 thou/uL (4.8-10.8)
== END 2021-07-20 15:00 | disposition home or self-care (01) | DRG 377 ==
LOC: ERS 23:40 → ERHOLD 07-17 01:53 → CCU 07-17 04:09 → SURG A 07-17 19:09
PROVIDERS: ADMIT Student in an Organized Health Care Education/Training Program; ATTEND Internal Medicine
PROC: 0W3P8ZZ Control Bleeding in Gastrointestinal Tract, Via Natural or Artificial Opening Endoscopic (ICD-10-PCS; principal; 2021-07-17)
PROC: 02H633Z Insertion of Infusion Device into Right Atrium, Percutaneous Approach (ICD-10-PCS; 2021-07-17)
PROC: 30233L1 Transfusion of Nonautologous Fresh Plasma into Peripheral Vein, Percutaneous Approach (ICD-10-PCS; 2021-07-17)
PROC: 30233N1 Transfusion of Nonautologous Red Blood Cells into Peripheral Vein, Percutaneous Approach (ICD-10-PCS; 2021-07-17)
PROC: 30233K1 Transfusion of Nonautologous Frozen Plasma into Peripheral Vein, Percutaneous Approach (ICD-10-PCS; 2021-07-17)
PROC: 3E033XZ Introduction of Vasopressor into Peripheral Vein, Percutaneous Approach (ICD-10-PCS; 2021-07-17)
DX: K25.4 Chronic or unspecified gastric ulcer with hemorrhage (principal); R57.8 Other shock; D62 Acute posthemorrhagic anemia; N17.9 Acute kidney failure, unspecified; J44.9 Chronic obstructive pulmonary disease, unspecified; E78.5 Hyperlipidemia, unspecified; K44.9 Diaphragmatic hernia without obstruction or gangrene; N18.2 Chronic kidney disease, stage 2 (mild); E11.22 Type 2 diabetes mellitus with diabetic chronic kidney disease; I12.9 Hypertensive chronic kidney disease with stage 1 through stage 4 chronic kidney disease, or unspecified chronic kidney disease; I25.2 Old myocardial infarction; Z88.0 Allergy status to penicillin; Z79.84 Long term (current) use of oral hypoglycemic drugs; Z79.899 Other long term (current) drug therapy; Z95.1 Presence of aortocoronary bypass graft; Z90.49 Acquired absence of other specified parts of digestive tract; Z90.89 Acquired absence of other organs; Z98.49 Cataract extraction status, unspecified eye
CPT/HCPCS: 36415; 36416; 36430; 36556; 70450; 71045; 72125; 80048; 80202; 81001; 84484; 85025; 85027; 85610; 85730; 86850; 86900; 86901; 87086; 93005; 94760; 96374; 96375; 99292; C9113; J0692; J1815; J1940; J2405; J2550; J2704; J3370; J3490; P9016; P9059

== ENCOUNTER 2021-08-11 20:40 | Inpatient (IN) | payer MEDICARE, OTHER ==
[2021-08-11 21:22] LABS: #Lymphocytes 0.7 thou/uL (1.20-3.40); #Monocytes 1.4 thou/uL (0.11-0.59); #Neutrophils 12.1 thou/uL (1.40-6.50); %Eosinophils 0.3 % (0.0-10.0); %Lymphocytes 5.2 % (21.0-51.0); %Monocytes 9.7 % (0.0-10.0); %Neutrophils 84.8 % (42.0-75.0); Hemoglobin 10.9 g/dL (12.0-16.0); Mean Corpuscular HGB CONC 34.3 g/dL (32.0-36.0); Mean Corpuscular Hemoglobin 33.9 pg (27.0-31.0); Mean Corpuscular Volume 98.9 fL (78.0-98.0); Mean Platelet Volume 11.7 fL (7.4-10.4); Platelet Count 97 thou/uL (130-400); RBC Distribution Width 14.8 % (11.5-14.5); White Blood Cell (WBC) Count 14.3 thou/uL (4.8-10.8)
[2021-08-11 21:30] LABS: ALT (SGPT) 8 U/L (8-55); AST (SGOT) 8 U/L (5-34); Albumin 3.3 g/dL (3.4-4.8); Alkaline Phosphatase 60 U/L (40-110); Anion Gap 13 mmol/L (10-20); BUN (Urea Nitrogen) 24 mg/dL (9.8-20.1); Calc. Creatinine Clearance 0 mL/min (70-130); Calcium 7.7 mg/dL (7.8-10.44); Carbon Dioxide 26 mmol/L (23-31); Chloride 100 mmol/L (98-107); Glucose 218 mg/dL (83-110); Potassium 3.1 mmol/L (3.5-5.1); Protein, Total 5.3 g/dL (5.8-8.1); Sodium 136 mmol/L (136-145)
[2021-08-11 21:39] LABS: Bacteria/HPF 4+ HPF (None Seen); Bilirubin Negative (Negative); Blood, Urine 1+ (Negative); Clarity Turbid (Clear); Glucose, Urine (Dipstick) Normal (Negative); Ketone, Urine Negative (Negative); Leukocyte 250 Leu/uL (Negative); Nitrite Negative (Negative); Protein, Urine (Dipstick) 30 mg/dL (Neg-Trace); RBC/HPF 0-3 HPF (0-3); Renal Epithelial 0-3 HPF (None Seen); Specific Gravity, Urine 1.011 (1.002-1.036); Squamous Epithelial None Seen HPF (0-3); Urobilinogen Normal mg/dL (Less than 2); WBC/HPF 21-50 HPF (0-3); pH, Urine 5.5 (5.0-9.0)
[2021-08-11] MEDS ORDERED: cefTRIAXone\\ROCEPHIN 1 GM VIAL ONE (23:34)
[2021-08-11] MEDS ORDERED: Ondansetron PF 4 MG/2 ML Vial IVP PRN (23:58)
[2021-08-11] MEDS ORDERED: Acetaminophen 325 MG TAB PO PRN (23:58)
[2021-08-12 00:05] LABS: SARS-CoV-2 NAA Rapid Test Not Detected (NotDetected)
[2021-08-12] MEDS ORDERED: methylPREDNISolone Sod Succ/PF 125 MG/2 ML VIAL ONE ×2 (00:33→00:35)
[2021-08-12] MEDS ORDERED: Dextrose 50% Abboject 50 ML SYRINGE SLOW IVP PRN (00:50)
[2021-08-12] MEDS ORDERED: Dextrose 5% in Water 1,000 ML IV PRN (00:50)
[2021-08-12] MEDS ORDERED: Sodium Chloride 0.9% 1,000 ML IV SCH (01:00)
[2021-08-12] MEDS ORDERED: Potassium Chloride 10 MEQ TAB PO SCH (01:00)
[2021-08-12 01:44] VITALS: BMI 27.0
[2021-08-12] MEDS: HumaLOG 300 UNITS/3 ML VIAL SC PRN ×4 (01:48→16:54)
[2021-08-12] MEDS: Cefepime 1 GM in Sodium Chloride 0.9% 100 ML IVPB SCH ×2 (08:07→20:11)
[2021-08-12 10:19] LABS: #Lymphocytes 0.5 thou/uL (1.20-3.40); #Monocytes 0.3 thou/uL (0.11-0.59); #Neutrophils 9.7 thou/uL (1.40-6.50); %Eosinophils 0.1 % (0.0-10.0); %Lymphocytes 4.7 % (21.0-51.0); %Neutrophils 92.3 % (42.0-75.0); Hemoglobin 9.9 g/dL (12.0-16.0); Mean Corpuscular HGB CONC 34.2 g/dL (32.0-36.0); Mean Corpuscular Hemoglobin 33.9 pg (27.0-31.0); Mean Platelet Volume 11.7 fL (7.4-10.4); Platelet Count 92 thou/uL (130-400); RBC Distribution Width 14.7 % (11.5-14.5); Red Blood Cell (RBC) Count 2.92 mill/uL (4.20-5.40); White Blood Cell (WBC) Count 10.6 thou/uL (4.8-10.8)
[2021-08-12 11:22] LABS: ALT (SGPT) Less than 7 U/L (8-55); AST (SGOT) 8 U/L (5-34); Albumin 2.9 g/dL (3.4-4.8); Alkaline Phosphatase 54 U/L (40-110); Anion Gap 11 mmol/L (10-20); BUN (Urea Nitrogen) 28 mg/dL (9.8-20.1); Bilirubin, Total 0.4 mg/dL (0.2-1.2); Calc. Creatinine Clearance 33 mL/min (70-130); Calcium 7.5 mg/dL (7.8-10.44); Carbon Dioxide 23 mmol/L (23-31); Chloride 105 mmol/L (98-107); Globulin 1.9 g/dL (2.4-3.5); Glucose 280 mg/dL (83-110); Magnesium 1.5 mg/dL (1.6-2.6); Potassium 3.4 mmol/L (3.5-5.1); Protein, Total 4.8 g/dL (5.8-8.1); Sodium 136 mmol/L (136-145)
[2021-08-13] MEDS: Cefepime 1 GM in Sodium Chloride 0.9% 100 ML IVPB SCH (08:08)
[2021-08-13 10:28] LABS: ALT (SGPT) 9 U/L (8-55); AST (SGOT) 10 U/L (5-34); Albumin 2.8 g/dL (3.4-4.8); Alkaline Phosphatase 55 U/L (40-110); Anion Gap 12 mmol/L (10-20); BUN (Urea Nitrogen) 28 mg/dL (9.8-20.1); Bilirubin, Total 0.3 mg/dL (0.2-1.2); Calc. Creatinine Clearance 35 mL/min (70-130); Calcium 7.8 mg/dL (7.8-10.44); Carbon Dioxide 24 mmol/L (23-31); Chloride 107 mmol/L (98-107); Globulin 1.9 g/dL (2.4-3.5); Glucose 199 mg/dL (83-110); Magnesium 1.5 mg/dL (1.6-2.6); Protein, Total 4.7 g/dL (5.8-8.1); Sodium 140 mmol/L (136-145)
[2021-08-13] MEDS ORDERED: Nitrofurantoin Monohyd/M-Cryst 100 MG CAP PO SCH (11:15)
[2021-08-13 11:21] LABS: #Lymphocytes 0.7 thou/uL (1.20-3.40); #Monocytes 0.7 thou/uL (0.11-0.59); #Neutrophils 7.7 thou/uL (1.40-6.50); %Basophils 0.1 % (0.0-1.0); %Eosinophils 0.3 % (0.0-10.0); %Monocytes 7.3 % (0.0-10.0); %Neutrophils 84.3 % (42.0-75.0); Hemoglobin 9.6 g/dL (12.0-16.0); Mean Corpuscular HGB CONC 33.9 g/dL (32.0-36.0); Mean Corpuscular Hemoglobin 33.5 pg (27.0-31.0); Mean Corpuscular Volume 98.7 fL (78.0-98.0); Platelet Count 99 thou/uL (130-400); RBC Distribution Width 14.7 % (11.5-14.5); Red Blood Cell (RBC) Count 2.87 mill/uL (4.20-5.40); White Blood Cell (WBC) Count 9.1 thou/uL (4.8-10.8)
[2021-08-13] MEDS: Potassium Chloride 20 MEQ TAB PO SCH ×2 (11:32→11:37)
[2021-08-13] MEDS: Magnesium 2 GM/50 ML 2 GM in Premix Bag 1 BAG IVPB SCH ×2 (11:32→11:38)
[2021-08-13] MEDS: HumaLOG 300 UNITS/3 ML VIAL SC PRN (11:40)
[2021-08-13] MEDS: Nitrofurantoin Monohyd/M-Cryst 100 MG CAP PO SCH (20:39)
[2021-08-13] MEDS: hydrALAZINE 25 MG TAB PO SCH (20:39)
[2021-08-13] MEDS: Metoprolol Tartrate 25 MG TAB PO SCH (20:40)
[2021-08-13] MEDS ORDERED: Atorvastatin Calcium 10 MG TAB PO SCH (21:00)
[2021-08-14 07:37] LABS: ALT (SGPT) 15 U/L (8-55); AST (SGOT) 18 U/L (5-34); Albumin 2.8 g/dL (3.4-4.8); Alkaline Phosphatase 65 U/L (40-110); Anion Gap 12 mmol/L (10-20); BUN (Urea Nitrogen) 21 mg/dL (9.8-20.1); Bilirubin, Total 0.4 mg/dL (0.2-1.2); Calc. Creatinine Clearance 43 mL/min (70-130); Calcium 7.9 mg/dL (7.8-10.44); Carbon Dioxide 24 mmol/L (23-31); Chloride 108 mmol/L (98-107); Globulin 2.2 g/dL (2.4-3.5); Glucose 142 mg/dL (83-110); Magnesium 2.5 mg/dL (1.6-2.6); Potassium 4.5 mmol/L (3.5-5.1); Sodium 139 mmol/L (136-145)
[2021-08-14 07:58] LABS: #Eosinphils 0.2 thou/uL (0.0-0.7); #Monocytes 0.6 thou/uL (0.11-0.59); #Neutrophils 4.4 thou/uL (1.40-6.50); %Basophils 0.5 % (0.0-1.0); %Eosinophils 3.5 % (0.0-10.0); %Lymphocytes 16.2 % (21.0-51.0); %Neutrophils 69.8 % (42.0-75.0); Hemoglobin 10.5 g/dL (12.0-16.0); Mean Corpuscular HGB CONC 33.7 g/dL (32.0-36.0); Mean Corpuscular Hemoglobin 33.7 pg (27.0-31.0); Mean Platelet Volume 11.5 fL (7.4-10.4); Platelet Count 116 thou/uL (130-400); Red Blood Cell (RBC) Count 3.12 mill/uL (4.20-5.40); White Blood Cell (WBC) Count 6.3 thou/uL (4.8-10.8)
[2021-08-14] MEDS: Nitrofurantoin Monohyd/M-Cryst 100 MG CAP PO SCH (08:34)
[2021-08-14] MEDS: Metoprolol Tartrate 25 MG TAB PO SCH (08:34)
[2021-08-14] MEDS: hydrALAZINE 25 MG TAB PO SCH (08:36)
[2021-08-14] MEDS ORDERED: Clopidogrel Bisulfate 75 MG TAB PO SCH (09:00)
[2021-08-14] MEDS ORDERED: Hydrochlorothiazide 25 MG TAB PO SCH (09:00)
[2021-08-14] MEDS ORDERED: Cholecalciferol 1,000 UNITS (25 MCG) TAB PO SCH (09:00)
[2021-08-14] MEDS ORDERED: Alogliptin 25 MG TAB PO SCH (09:00)
[2021-08-14] MEDS ORDERED: Furosemide 40 MG TAB PO SCH (09:00)
[2021-08-14] MEDS ORDERED: Amlodipine 10 MG TAB PO SCH (09:00)
[2021-08-14 11:39] VITALS: BP 129/65; TEMP 98.1
== END 2021-08-14 11:58 | disposition home or self-care (01) | DRG 872 ==
LOC: ERS 20:40 → T4-B 23:47
PROVIDERS: ADMIT Internal Medicine; ATTEND Internal Medicine
DX: A41.51 Sepsis due to Escherichia coli [E. coli] (principal); I13.0 Hypertensive heart and chronic kidney disease with heart failure and stage 1 through stage 4 chronic kidney disease, or unspecified chronic kidney disease; I50.32 Chronic diastolic (congestive) heart failure; N39.0 Urinary tract infection, site not specified; N17.9 Acute kidney failure, unspecified; I25.10 Atherosclerotic heart disease of native coronary artery without angina pectoris; E11.22 Type 2 diabetes mellitus with diabetic chronic kidney disease; E78.5 Hyperlipidemia, unspecified; J44.9 Chronic obstructive pulmonary disease, unspecified; E87.6 Hypokalemia; Z20.822 Contact with and (suspected) exposure to COVID-19; N18.30 Chronic kidney disease, stage 3 unspecified; R65.20 Severe sepsis without septic shock; Z88.0 Allergy status to penicillin; Z79.02 Long term (current) use of antithrombotics/antiplatelets; Z79.84 Long term (current) use of oral hypoglycemic drugs; Z79.51 Long term (current) use of inhaled steroids; Z79.899 Other long term (current) drug therapy; Z90.49 Acquired absence of other specified parts of digestive tract; Z95.1 Presence of aortocoronary bypass graft; Z90.89 Acquired absence of other organs; Z95.5 Presence of coronary angioplasty implant and graft; Z98.49 Cataract extraction status, unspecified eye
CPT/HCPCS: 36415; 36416; 51701; 70450; 71045; 80053; 81003; 81015; 83605; 83690; 83735; 85025; 87040; 87077; 87086; 87186; 93005; 94640; 96365; 96375; J0692; J0696; J1815; J2405; J2930; J3475; J3490; J7050; J7620; U0002

== ENCOUNTER 2021-10-21 09:37 | Outpatient (CLI) | payer MEDICARE, OTHER | END 2021-10-21 09:38 | disposition home or self-care (01) | LOC: BICRAD 09:37 | PROVIDERS: ATTEND Nurse Practitioner Family | DX: M25.512 Pain in left shoulder (principal) ==

== ENCOUNTER 2021-12-05 12:31 | Outpatient (CLI) | payer MEDICARE, OTHER | END 2021-12-05 12:32 | disposition home or self-care (01) | LOC: BICRAD 12:31 | PROVIDERS: ATTEND Nurse Practitioner Family | DX: M25.512 Pain in left shoulder (principal) ==

== ENCOUNTER 2022-07-21 09:27 | Observation (INO) | payer OTHER ==
[2022-07-21 10:03] LABS: #Basophils 0.1 thou/uL (0.0-0.2); #Eosinphils 0.2 thou/uL (0.0-0.7); #Lymphocytes 1.6 thou/uL (1.20-3.40); #Monocytes 0.7 thou/uL (0.11-0.59); #Neutrophils 6.9 thou/uL (1.40-6.50); %Basophils 0.5 % (0.0-1.0); %Eosinophils 1.9 % (0.0-10.0); %Lymphocytes 17.2 % (21.0-51.0); %Monocytes 6.9 % (0.0-10.0); %Neutrophils 73.4 % (42.0-75.0); Hemoglobin 12.5 g/dL (12.0-16.0); Mean Corpuscular HGB CONC 33.8 g/dL (32.0-36.0); Mean Corpuscular Hemoglobin 35.6 pg (27.0-31.0); Mean Platelet Volume 11.2 fL (7.4-10.4); Platelet Count 168 thou/uL (130-400); RBC Distribution Width 11.5 % (11.5-14.5); White Blood Cell (WBC) Count 9.5 thou/uL (4.8-10.8)
[2022-07-21] MEDS ORDERED: Acetaminophen 500 MG TAB ONE (11:13)
[2022-07-21 11:21] LABS: Albumin 3.5 g/dL (3.4-4.8)
[2022-07-21 11:22] LABS: Chloride 98 mmol/L (98-107); Sodium 135 mmol/L (136-145)
[2022-07-21 11:23] LABS: Calcium 8.7 mg/dL (7.8-10.44); Glucose 151 mg/dL (83-110)
[2022-07-21 11:24] LABS: Globulin 2.3 g/dL (2.4-3.5); Protein, Total 5.8 g/dL (5.8-8.1)
[2022-07-21 11:25] LABS: Anion Gap 14 mmol/L (10-20); Bilirubin, Total 0.8 mg/dL (0.2-1.2); Carbon Dioxide 26 mmol/L (23-31)
[2022-07-21 11:26] LABS: Alkaline Phosphatase 60 U/L (40-110)
[2022-07-21 11:27] LABS: Calc. Creatinine Clearance 0 mL/min (70-130); Estimated GFR 29
[2022-07-21 11:28] LABS: BUN (Urea Nitrogen) 36 mg/dL (9.8-20.1)
[2022-07-21 11:29] LABS: ALT (SGPT) 9 U/L (8-55); AST (SGOT) 9 U/L (5-34)
[2022-07-21] MEDS ORDERED: Potassium Chloride 20 MEQ TAB ONE (12:04)
[2022-07-21 12:24] LABS: Magnesium 1.6 mg/dL (1.6-2.6)
[2022-07-21 13:27] LABS: Troponin I 0.011 ng/mL (< 0.028)
[2022-07-21] MEDS ORDERED: HumaLOG 300 UNITS/3 ML VIAL SC PRN ×2 (13:29)
[2022-07-21] MEDS ORDERED: Dextrose 5% in Water 1,000 ML IV PRN (13:29)
[2022-07-21] MEDS ORDERED: Dextrose 50% Abboject 50 ML SYRINGE SLOW IVP PRN (13:29)
[2022-07-21] MEDS ORDERED: hydrALAZINE 20 MG/ML VIAL SLOW IVP PRN (13:30)
[2022-07-21] MEDS ORDERED: Sodium Chloride 0.9% 1,000 ML IV SCH (13:30)
[2022-07-21] MEDS ORDERED: Electrolyte Replacement Protocol 1 EACH FS PRN (13:30)
[2022-07-21] MEDS ORDERED: Ondansetron ODT 4 MG TAB PO PRN (13:30)
[2022-07-21 15:55] VITALS: BMI 24.3
[2022-07-21 16:49] LABS: Troponin I 0.013 ng/mL (< 0.028)
[2022-07-21] MEDS: metFORMIN 500 MG TAB PO SCH (17:21)
[2022-07-21] MEDS: hydrALAZINE 25 MG TAB PO SCH (20:16)
[2022-07-21] MEDS: Atorvastatin Calcium 20 MG TAB PO SCH (20:16)
[2022-07-21] MEDS: Acetaminophen 325 MG TAB PO PRN (20:16)
[2022-07-22 05:25] LABS: #Basophils 0.1 thou/uL (0.0-0.2); #Eosinphils 0.3 thou/uL (0.0-0.7); #Lymphocytes 1.7 thou/uL (1.20-3.40); #Monocytes 0.4 thou/uL (0.11-0.59); #Neutrophils 2.5 thou/uL (1.40-6.50); %Basophils 1.4 % (0.0-1.0); %Eosinophils 6.3 % (0.0-10.0); %Lymphocytes 33.9 % (21.0-51.0); %Monocytes 8.5 % (0.0-10.0); %Neutrophils 49.9 % (42.0-75.0); Hemoglobin 10.3 g/dL (12.0-16.0); Mean Corpuscular HGB CONC 33.9 g/dL (32.0-36.0); Mean Corpuscular Hemoglobin 35.6 pg (27.0-31.0); Mean Platelet Volume 10.8 fL (7.4-10.4); Platelet Count 131 thou/uL (130-400); RBC Distribution Width 11.5 % (11.5-14.5); Red Blood Cell (RBC) Count 2.89 mill/uL (4.20-5.40); White Blood Cell (WBC) Count 5.1 thou/uL (4.8-10.8)
[2022-07-22 05:50] LABS: Anion Gap 14 mmol/L (10-20); BUN (Urea Nitrogen) 34 mg/dL (9.8-20.1); Calc. Creatinine Clearance 25 mL/min (70-130); Calcium 8.5 mg/dL (7.8-10.44); Carbon Dioxide 26 mmol/L (23-31); Chloride 104 mmol/L (98-107); Cholesterol 91 mg/dl (< 200 Desired); Estimated GFR 32; Glucose 131 mg/dL (83-110); HDL Cholesterol 46 mg/dL (>60 Neg Risk); LDL Cholesterol, Calculated 30 mg/dL; Magnesium 1.7 mg/dL (1.6-2.6); Potassium 3.5 mmol/L (3.5-5.1); Sodium 140 mmol/L (136-145); Triglycerides 77 mg/dL (Less than 150)
[2022-07-22] MEDS ORDERED: Potassium Chloride 20 MEQ TAB PO SCH (06:15)
[2022-07-22] MEDS ORDERED: Magnesium 2 GM/50 ML(in water) 2 GM in Premix Bag 1 BAG IVPB SCH (06:15)
[2022-07-22] MEDS: hydrALAZINE 25 MG TAB PO SCH ×2 (08:21→19:54)
[2022-07-22] MEDS: metFORMIN 500 MG TAB PO SCH ×2 (08:22→18:29)
[2022-07-22] MEDS: Amlodipine 5 MG TAB PO SCH (08:22)
[2022-07-22] MEDS ORDERED: Amlodipine 10 MG TAB PO SCH (09:00)
[2022-07-22] MEDS: Acetaminophen 325 MG TAB PO PRN (10:09)
[2022-07-22] MEDS ORDERED: Calcium Carbonate 500 MG ChewTAB PO PRN (18:13)
[2022-07-22] MEDS: Atorvastatin Calcium 20 MG TAB PO SCH (19:54)
[2022-07-23 05:14] LABS: #Eosinphils 0.3 thou/uL (0.0-0.7); #Lymphocytes 2.4 thou/uL (1.20-3.40); #Monocytes 0.6 thou/uL (0.11-0.59); #Neutrophils 3.5 thou/uL (1.40-6.50); %Basophils 0.6 % (0.0-1.0); %Eosinophils 4.6 % (0.0-10.0); %Lymphocytes 35.2 % (21.0-51.0); %Monocytes 8.5 % (0.0-10.0); %Neutrophils 51.2 % (42.0-75.0); Mean Corpuscular HGB CONC 33.7 g/dL (32.0-36.0); Mean Corpuscular Hemoglobin 35.7 pg (27.0-31.0); Mean Platelet Volume 11.1 fL (7.4-10.4); Platelet Count 160 thou/uL (130-400); RBC Distribution Width 11.6 % (11.5-14.5); Red Blood Cell (RBC) Count 3.09 mill/uL (4.20-5.40); White Blood Cell (WBC) Count 6.9 thou/uL (4.8-10.8)
[2022-07-23 05:40] LABS: Anion Gap 15 mmol/L (10-20); BUN (Urea Nitrogen) 24 mg/dL (9.8-20.1); Calc. Creatinine Clearance 37 mL/min (70-130); Calcium 8.8 mg/dL (7.8-10.44); Carbon Dioxide 22 mmol/L (23-31); Chloride 106 mmol/L (98-107); Estimated GFR 51; Glucose 124 mg/dL (83-110); Potassium 3.8 mmol/L (3.5-5.1); Sodium 139 mmol/L (136-145)
[2022-07-23] MEDS: metFORMIN 500 MG TAB PO SCH (08:37)
[2022-07-23] MEDS: Amlodipine 5 MG TAB PO SCH (08:37)
[2022-07-23] MEDS: hydrALAZINE 25 MG TAB PO SCH (08:38)
[2022-07-23 11:57] VITALS: BP 132/56; TEMP 98.3
== END 2022-07-23 15:20 | disposition home or self-care (01) ==
LOC: ERS 09:27 → ERHOLD 12:40 → 2SW 15:38
PROVIDERS: ADMIT Family Medicine; ATTEND Family Medicine
DX: R55 Syncope and collapse (principal); E78.00 Pure hypercholesterolemia, unspecified; I25.10 Atherosclerotic heart disease of native coronary artery without angina pectoris; I13.0 Hypertensive heart and chronic kidney disease with heart failure and stage 1 through stage 4 chronic kidney disease, or unspecified chronic kidney disease; N18.30 Chronic kidney disease, stage 3 unspecified; I50.32 Chronic diastolic (congestive) heart failure; N17.9 Acute kidney failure, unspecified; D63.1 Anemia in chronic kidney disease; G89.29 Other chronic pain; K21.9 Gastro-esophageal reflux disease without esophagitis; J44.9 Chronic obstructive pulmonary disease, unspecified; E87.6 Hypokalemia; K44.9 Diaphragmatic hernia without obstruction or gangrene; R53.1 Weakness; I08.8 Other rheumatic multiple valve diseases; Z79.02 Long term (current) use of antithrombotics/antiplatelets; Z79.84 Long term (current) use of oral hypoglycemic drugs; Z79.899 Other long term (current) drug therapy; Z88.0 Allergy status to penicillin; Z95.1 Presence of aortocoronary bypass graft; Z95.5 Presence of coronary angioplasty implant and graft; Z20.822 Contact with and (suspected) exposure to COVID-19
CPT/HCPCS: 71045; 80048 ×2; 80053; 80061; 82962 ×3; 83735 ×2; 83880; 84443; 84484 ×2; 85025 ×3; 93005; 93306; 93880; 94760; 99285; U0003; U0005; 36415; 36416; 96374; G0378; J1815; J3475; J7050; Q0162

== ENCOUNTER 2022-12-10 15:37 | Inpatient (IN) | payer OTHER ==
[2022-12-10] MEDS ORDERED: Morphine 4 MG/ML VIAL ONE (16:03)
[2022-12-10 16:49] LABS: SARS-CoV-2 NAA Rapid Test Not Detected (NotDetected)
[2022-12-10] MEDS ORDERED: Morphine 4 MG/ML VIAL SLOW IVP PRN (17:01)
[2022-12-10] MEDS ORDERED: Ipratropium/Albuterol 3 ML NEB NEB PRN (17:01)
[2022-12-10] MEDS ORDERED: Ondansetron PF 4 MG/2 ML Vial IVP PRN (17:01)
[2022-12-10] MEDS ORDERED: Acetaminophen/Codeine 30-300mg Tablet PO PRN (17:03)
[2022-12-10] MEDS ORDERED: Sodium Chloride 0.9% 1,000 ML IV SCH (17:15)
[2022-12-10 17:16] LABS: Hemoglobin 11.6 g/dL (12.0-16.0); Mean Corpuscular HGB CONC 32.9 g/dL (32.0-36.0); Mean Corpuscular Hemoglobin 35.8 pg (27.0-31.0); Mean Platelet Volume 10.9 fL (7.4-10.4); Platelet Count 183 10x3/uL (130-400); RBC Distribution Width 11.8 % (11.5-14.5); Red Blood Cell (RBC) Count 3.24 mill/uL (4.20-5.40); White Blood Cell (WBC) Count 20.3 10x3/uL (4.8-10.8)
[2022-12-10 17:26] LABS: INR-International Normal Ratio 1.1; PTT 24.5 sec (22.9-36.1); Prothrombin Time 14.4 sec (12.0-14.7)
[2022-12-10 17:29] LABS: Band 2 % (5-11); Lymphocytes 6 % (21-51); MDiff Complete? YES; Macrocytosis SLIGHT = 6-15 cells (100X) (0-5/hpf); Monocytes 3 % (0-10); Neutrophil 88 % (42-75); Platelet Morphology Comment Appears Adequate; Polychromasia SLIGHT = 2-3 cells (100X) (0-2/hpf); Reactive Lymphocytes 1 % (0-10)
[2022-12-10 17:33] LABS: ALT (SGPT) 11 U/L (8-55); AST (SGOT) 13 U/L (5-34); Albumin 3.6 g/dL (3.4-4.8); Alkaline Phosphatase 58 U/L (40-110); Anion Gap 16 mmol/L (10-20); BUN (Urea Nitrogen) 26 mg/dL (9.8-20.1); Bilirubin, Total 0.5 mg/dL (0.2-1.2); CRP (Inflammatory) 1.06 mg/dL (= or < 0.5); Calc. Creatinine Clearance 0 mL/min (70-130); Calcium 8.5 mg/dL (7.8-10.44); Carbon Dioxide 16 mmol/L (23-31); Chloride 108 mmol/L (98-107); Estimated GFR 44; Globulin 2.3 g/dL (2.4-3.5); Glucose 195 mg/dL (83-110); Protein, Total 5.9 g/dL (5.8-8.1); Sodium 136 mmol/L (136-145)
[2022-12-10] MEDS ORDERED: Ketorolac Tromethamine 30 MG/ML VIAL ONE (18:20)
[2022-12-10] MEDS ORDERED: Ketorolac Tromethamine 30 MG/ML VIAL IVP SCH (18:30)
[2022-12-10] MEDS ORDERED: Albuterol 200 PUFF (6.7GM INHALER) INH PRN (18:32)
[2022-12-10] MEDS ORDERED: Dextrose 50% Abboject 50 ML SYRINGE SLOW IVP PRN (18:37)
[2022-12-10] MEDS ORDERED: Dextrose 5% in Water 1,000 ML IV PRN (18:37)
[2022-12-10] MEDS: Acetaminophen 325 MG TAB PO SCH (19:56)
[2022-12-10 19:59] VITALS: BMI 23.2
[2022-12-10] MEDS: Morphine 2 MG/ML VIAL SLOW IVP PRN ×2 (20:15→22:17)
[2022-12-10] MEDS: Atorvastatin Calcium 10 MG TAB PO SCH (20:47)
[2022-12-10] MEDS ORDERED: Famotidine/PF 20 mg/2ml Vial SLOW IVP SCH (21:00)
[2022-12-10 23:54] LABS: Bacteria/HPF None Seen HPF (None Seen); Bilirubin Negative (Negative); Blood, Urine Negative (Negative); CAUTI Indications for Culture Pelvic or flank pain; Clarity Clear (Clear); Glucose, Urine (Dipstick) Normal (Negative); Ketone, Urine Negative (Negative); Leukocyte 25 Leu/uL (Negative); Nitrite Negative (Negative); Protein, Urine (Dipstick) 10 mg/dL (Neg-Trace); RBC/HPF 0-3 HPF (0-3); Specific Gravity, Urine 1.025 (1.002-1.036); Squamous Epithelial 0-3 HPF (0-3); Urobilinogen Normal mg/dL (Less than 2)
[2022-12-10 23:56] LABS: Urine Culture Reflex No No
[2022-12-11] MEDS: Acetaminophen 325 MG TAB PO SCH ×4 (01:14→18:13)
[2022-12-11] MEDS: Ipratropium/Albuterol 3 ML NEB NEB SCH ×4 (02:07→18:31)
[2022-12-11] MEDS: Morphine 2 MG/ML VIAL SLOW IVP PRN ×4 (05:16→14:00)
[2022-12-11 06:05] LABS: #Eosinphils 0.1 thou/uL (0.0-0.7); #Lymphocytes 1.6 thou/uL (1.20-3.40); #Monocytes 0.9 thou/uL (0.11-0.59); #Neutrophils 5.8 thou/uL (1.40-6.50); %Basophils 0.1 % (0.0-1.0); %Eosinophils 0.8 % (0.0-10.0); %Lymphocytes 19.4 % (21.0-51.0); %Monocytes 10.7 % (0.0-10.0); %Neutrophils 68.9 % (42.0-75.0); Hemoglobin 9.7 g/dL (12.0-16.0); Mean Corpuscular HGB CONC 33.8 g/dL (32.0-36.0); Mean Corpuscular Hemoglobin 37.3 pg (27.0-31.0); Mean Platelet Volume 10.5 fL (7.4-10.4); Platelet Count 137 10x3/uL (130-400); RBC Distribution Width 11.8 % (11.5-14.5); White Blood Cell (WBC) Count 8.4 10x3/uL (4.8-10.8)
[2022-12-11 06:12] LABS: INR-International Normal Ratio 1.2; PTT 27.4 sec (22.9-36.1); Prothrombin Time 15.2 sec (12.0-14.7)
[2022-12-11 06:22] LABS: Anion Gap 15 mmol/L (10-20); BUN (Urea Nitrogen) 29 mg/dL (9.8-20.1); Calc. Creatinine Clearance 34 mL/min (70-130); Carbon Dioxide 18 mmol/L (23-31); Chloride 108 mmol/L (98-107); Potassium 4.5 mmol/L (3.5-5.1); Sodium 136 mmol/L (136-145)
[2022-12-11 06:23] LABS: Calcium 8.2 mg/dL (7.8-10.44); Estimated GFR 50; Glucose 135 mg/dL (83-110)
[2022-12-11] MEDS ORDERED: Clindamycin/D5W 900 MG in Premix Bag 1 BAG IVPB SCH (07:30)
[2022-12-11] MEDS ORDERED: CEFAZOLIN 2 GM in Sodium Chloride 0.9% 100 ML IVPB SCH ×2 (09:30→16:45)
[2022-12-11] MEDS: Amlodipine 5 MG TAB PO SCH (10:15)
[2022-12-11] MEDS: Sertraline 100 MG TAB PO SCH (10:15)
[2022-12-11] MEDS ORDERED: Morphine 2 MG/ML VIAL ONE (13:53)
[2022-12-11] MEDS ORDERED: Clindamycin/D5W 900 mg/50 ml Premix Bag ONE (13:53)
[2022-12-11] MEDS ORDERED: Famotidine/PF 20 mg/2ml Vial ONE (14:39)
[2022-12-11] MEDS ORDERED: fentaNYL PF 100 MCG/2 ML SYRINGE ONE (14:39)
[2022-12-11] MEDS ORDERED: Sodium Chloride 0.9% 100 ML ONE (14:40)
[2022-12-11] MEDS ORDERED: CEFAZOLIN 2 GM VIAL ONE (14:40)
[2022-12-11] MEDS ORDERED: Dexamethasone 20 MG/5 ML VIAL ONE (14:56)
[2022-12-11] MEDS ORDERED: Ondansetron PF 4 MG/2 ML Vial ONE (14:56)
[2022-12-11] MEDS ORDERED: PROPOFOL 200 MG/20 ML VIAL ONE (14:56)
[2022-12-11] MEDS ORDERED: Lidocaine 1% PF 5 ML VIAL ONE (14:56)
[2022-12-11] MEDS ORDERED: PACU-Morphine 4MG/ML VIAL SLOW IVP PRN (15:30)
[2022-12-11] MEDS ORDERED: Promethazine HCl 25 MG/ML VIAL IM PRN (15:30)
[2022-12-11] MEDS: Atorvastatin Calcium 10 MG TAB PO SCH (21:08)
[2022-12-11] MEDS: CEFAZOLIN 2 GM in Sodium Chloride 0.9% 100 ML IVPB SCH (21:08)
[2022-12-12] MEDS: Acetaminophen 325 MG TAB PO SCH ×5 (00:24→23:21)
[2022-12-12] MEDS: Ipratropium/Albuterol 3 ML NEB NEB SCH ×4 (01:14→18:48)
[2022-12-12] MEDS: CEFAZOLIN 2 GM in Sodium Chloride 0.9% 100 ML IVPB SCH (05:11)
[2022-12-12] MEDS: Amlodipine 5 MG TAB PO SCH (08:54)
[2022-12-12] MEDS: Morphine 2 MG/ML VIAL SLOW IVP PRN (08:55)
[2022-12-12] MEDS: Sertraline 100 MG TAB PO SCH (08:55)
[2022-12-12] MEDS: Insulin Regular 300 UNITS/3 ML VIAL SC PRN (18:03)
[2022-12-12 18:10] LABS: #Lymphocytes 1.2 thou/uL (1.20-3.40); #Monocytes 0.9 thou/uL (0.11-0.59); #Neutrophils 7.4 thou/uL (1.40-6.50); %Basophils 0.3 % (0.0-1.0); %Eosinophils 0.5 % (0.0-10.0); %Lymphocytes 12.9 % (21.0-51.0); %Neutrophils 77.4 % (42.0-75.0); Hemoglobin 7.5 g/dL (12.0-16.0); Mean Corpuscular HGB CONC 32.8 g/dL (32.0-36.0); Mean Platelet Volume 10.9 fL (7.4-10.4); Platelet Count 124 10x3/uL (130-400); RBC Distribution Width 11.7 % (11.5-14.5); Red Blood Cell (RBC) Count 2.08 mill/uL (4.20-5.40); White Blood Cell (WBC) Count 9.6 10x3/uL (4.8-10.8)
[2022-12-12] MEDS: Atorvastatin Calcium 10 MG TAB PO SCH (19:55)
[2022-12-12] MEDS ORDERED: Hydrocortisone Sod Succ/PF 100 mg/2 ml Vial IVP SCH (22:30)
[2022-12-13] MEDS: Ipratropium/Albuterol 3 ML NEB NEB SCH ×5 (00:34→23:58)
[2022-12-13] MEDS: Acetaminophen 325 MG TAB PO SCH (05:54)
[2022-12-13] MEDS: Hydrocortisone Sod Succ/PF 100 mg/2 ml Vial IVP SCH ×3 (05:56→21:23)
[2022-12-13] MEDS: Insulin Regular 300 UNITS/3 ML VIAL SC PRN ×3 (06:01→21:25)
[2022-12-13 08:42] LABS: Hemoglobin 9.8 g/dL (12.0-16.0)
[2022-12-13] MEDS: Amlodipine 5 MG TAB PO SCH (09:33)
[2022-12-13] MEDS: Sertraline 100 MG TAB PO SCH (09:34)
[2022-12-13] MEDS: Acetaminophen/Codeine 30-300mg Tablet PO SCH ×3 (12:01→23:39)
[2022-12-13] MEDS: Aspirin 81 mg Enteric Coated Tablet PO SCH (21:23)
[2022-12-13] MEDS: Atorvastatin Calcium 10 MG TAB PO SCH (21:23)
[2022-12-13] MEDS ORDERED: Morphine 2 MG/ML VIAL SLOW IVP PRN (21:35)
[2022-12-14] MEDS: Acetaminophen/Codeine 30-300mg Tablet PO SCH ×4 (05:36→23:52)
[2022-12-14] MEDS: Hydrocortisone Sod Succ/PF 100 mg/2 ml Vial IVP SCH ×3 (05:37→20:16)
[2022-12-14] MEDS: Ipratropium/Albuterol 3 ML NEB NEB SCH ×4 (06:40→23:32)
[2022-12-14] MEDS: Amlodipine 5 MG TAB PO SCH (08:12)
[2022-12-14] MEDS: Aspirin 81 mg Enteric Coated Tablet PO SCH (08:13)
[2022-12-14] MEDS: Sertraline 100 MG TAB PO SCH (08:13)
[2022-12-14] MEDS: Insulin Regular 300 UNITS/3 ML VIAL SC PRN (11:46)
[2022-12-14 15:05] LABS: Anion Gap 11 mmol/L (10-20); BUN (Urea Nitrogen) 29 mg/dL (9.8-20.1); Calc. Creatinine Clearance 42 mL/min (70-130); Calcium 8.7 mg/dL (7.8-10.44); Carbon Dioxide 25 mmol/L (23-31); Chloride 103 mmol/L (98-107); Estimated GFR 63; Glucose 128 mg/dL (83-110); Sodium 135 mmol/L (136-145)
[2022-12-14] MEDS ORDERED: Ibuprofen 200 MG TAB PO PRN (16:12)
[2022-12-14] MEDS: Cyclobenzaprine 10 MG TAB PO PRN (20:16)
[2022-12-14] MEDS: Atorvastatin Calcium 10 MG TAB PO SCH (20:16)
[2022-12-15] MEDS: Hydrocortisone Sod Succ/PF 100 mg/2 ml Vial IVP SCH ×3 (05:35→21:13)
[2022-12-15] MEDS: Acetaminophen/Codeine 30-300mg Tablet PO SCH ×3 (05:35→18:36)
[2022-12-15] MEDS: Ipratropium/Albuterol 3 ML NEB NEB SCH ×4 (06:18→23:41)
[2022-12-15] MEDS: Sertraline 100 MG TAB PO SCH (09:47)
[2022-12-15] MEDS: Amlodipine 5 MG TAB PO SCH (09:48)
[2022-12-15] MEDS: Insulin Regular 300 UNITS/3 ML VIAL SC PRN ×2 (12:07→18:36)
[2022-12-15] MEDS ORDERED: Lidocaine 5% Patch TD SCH (13:45)
[2022-12-15] MEDS: Senokot S 8.6-50 MG TAB PO SCH (21:13)
[2022-12-15] MEDS: Atorvastatin Calcium 10 MG TAB PO SCH (21:13)
[2022-12-15] MEDS: Cyclobenzaprine 10 MG TAB PO PRN (21:21)
[2022-12-16] MEDS: Acetaminophen/Codeine 30-300mg Tablet PO SCH ×3 (00:35→11:32)
[2022-12-16] MEDS ORDERED: Transdermal Patch Removal TOP SCH ×2 (02:00→21:00)
[2022-12-16] MEDS ORDERED: Bisacodyl 10 MG SUPP PR SCH (07:45)
[2022-12-16] MEDS: Ipratropium/Albuterol 3 ML NEB NEB SCH ×2 (08:02→13:03)
[2022-12-16] MEDS ORDERED: Polyethylene Glycol 3350 17 GM Packet PO SCH (09:00)
[2022-12-16] MEDS ORDERED: Lidocaine 5% Patch TD SCH ×2 (09:00→14:00)
[2022-12-16] MEDS ORDERED: Heparin 5,000 UNITS/ML VIAL SC SCH (09:00)
[2022-12-16] MEDS ORDERED: DULoxetine 30 MG CAP PO SCH (09:00)
[2022-12-16] MEDS ORDERED: Losartan 25 MG TAB PO SCH (09:00)
[2022-12-16] MEDS: Sertraline 100 MG TAB PO SCH (09:10)
[2022-12-16] MEDS: Amlodipine 5 MG TAB PO SCH (09:10)
[2022-12-16] MEDS: Senokot S 8.6-50 MG TAB PO SCH (09:12)
[2022-12-16] MEDS ORDERED: Alogliptin 6.25 MG TAB PO SCH (09:30)
[2022-12-16] MEDS: Insulin Regular 300 UNITS/3 ML VIAL SC PRN (11:32)
[2022-12-16 12:08] VITALS: BP 128/69; TEMP 98.3
[2022-12-17] MEDS ORDERED: Alogliptin 6.25 MG TAB PO SCH (09:00)
== END 2022-12-16 14:45 | DRG 481 ==
LOC: ERS 15:37 → SURG A 17:01
PROVIDERS: ADMIT Specialist; ATTEND Surgery
PROC: 0QS704Z Reposition Left Upper Femur with Internal Fixation Device, Open Approach (ICD-10-PCS; principal; 2022-12-11)
PROC: 0PSDXZZ Reposition Left Humeral Head, External Approach (ICD-10-PCS; 2022-12-11)
PROC: 30233N1 Transfusion of Nonautologous Red Blood Cells into Peripheral Vein, Percutaneous Approach (ICD-10-PCS; 2022-12-12)
DX: S72.142A Displaced intertrochanteric fracture of left femur, initial encounter for closed fracture (principal); I13.0 Hypertensive heart and chronic kidney disease with heart failure and stage 1 through stage 4 chronic kidney disease, or unspecified chronic kidney disease; S42.292A Other displaced fracture of upper end of left humerus, initial encounter for closed fracture; I50.32 Chronic diastolic (congestive) heart failure; N17.9 Acute kidney failure, unspecified; N39.0 Urinary tract infection, site not specified; E78.5 Hyperlipidemia, unspecified; I25.10 Atherosclerotic heart disease of native coronary artery without angina pectoris; J44.9 Chronic obstructive pulmonary disease, unspecified; K21.9 Gastro-esophageal reflux disease without esophagitis; D63.1 Anemia in chronic kidney disease; E11.22 Type 2 diabetes mellitus with diabetic chronic kidney disease; F41.9 Anxiety disorder, unspecified; N18.30 Chronic kidney disease, stage 3 unspecified; Z79.899 Other long term (current) drug therapy; Z95.1 Presence of aortocoronary bypass graft; Z95.5 Presence of coronary angioplasty implant and graft; Z87.11 Personal history of peptic ulcer disease; Z90.49 Acquired absence of other specified parts of digestive tract; Z90.89 Acquired absence of other organs; Z98.890 Other specified postprocedural states; Z88.0 Allergy status to penicillin; W18.30XA Fall on same level, unspecified, initial encounter; Z20.822 Contact with and (suspected) exposure to COVID-19; Y92.009 Unspecified place in unspecified non-institutional (private) residence as the place of occurrence of the external cause; I25.2 Old myocardial infarction; G89.29 Other chronic pain; M81.0 Age-related osteoporosis without current pathological fracture
CPT/HCPCS: 36415; 36416; 36430; 70450; 71045; 72125; 72170; 80048; 80053; 81001; 82533; 85014; 85018; 85025; 85610; 85730; 86140; 86850; 86900; 86901; 93005; 94640; 96374; C1713; G0390; J1100; J1644; J1720; J1815; J1885; J2270; J2272; J2405; J2704; J3490; J7050; J7620; P9016; S0028; U0002

== ENCOUNTER 2022-12-23 14:28 | Inpatient (IN) | payer OTHER ==
[2022-12-23] MEDS ORDERED: Morphine 4 MG/ML VIAL ONE (15:19)
[2022-12-23] MEDS ORDERED: Ondansetron PF 4 MG/2 ML Vial ONE (15:19)
[2022-12-23 15:53] LABS: #Eosinphils 0.2 thou/uL (0.0-0.7); #Lymphocytes 2.1 thou/uL (1.20-3.40); #Monocytes 1.1 thou/uL (0.11-0.59); #Neutrophils 10.6 thou/uL (1.40-6.50); %Basophils 0.2 % (0.0-1.0); %Eosinophils 1.3 % (0.0-10.0); %Lymphocytes 14.9 % (21.0-51.0); %Monocytes 7.8 % (0.0-10.0); %Neutrophils 75.7 % (42.0-75.0); Hemoglobin 9.2 g/dL (12.0-16.0); Mean Corpuscular HGB CONC 34.4 g/dL (32.0-36.0); Mean Corpuscular Hemoglobin 36.6 pg (27.0-31.0); Mean Platelet Volume 9.4 fL (7.4-10.4); Platelet Count 260 10x3/uL (130-400); RBC Distribution Width 14.3 % (11.5-14.5); Red Blood Cell (RBC) Count 2.51 mill/uL (4.20-5.40)
[2022-12-23 16:03] LABS: INR-International Normal Ratio 1.2; PTT 28.1 sec (22.9-36.1); Prothrombin Time 15.2 sec (12.0-14.7)
[2022-12-23 16:16] LABS: ALT (SGPT) 10 U/L (8-55); AST (SGOT) 14 U/L (5-34); Albumin 2.9 g/dL (3.4-4.8); Alkaline Phosphatase 127 U/L (40-110); Anion Gap 13 mmol/L (10-20); BUN (Urea Nitrogen) 21 mg/dL (9.8-20.1); Bilirubin, Total 0.7 mg/dL (0.2-1.2); Calc. Creatinine Clearance 0 mL/min (70-130); Calcium 8.6 mg/dL (7.8-10.44); Carbon Dioxide 20 mmol/L (23-31); Chloride 102 mmol/L (98-107); Estimated GFR 51; Globulin 2.5 g/dL (2.4-3.5); Glucose 182 mg/dL (83-110); Protein, Total 5.4 g/dL (5.8-8.1); Sodium 131 mmol/L (136-145)
[2022-12-23] MEDS ORDERED: Dextrose 50% Abboject 50 ML SYRINGE SLOW IVP PRN ×2 (16:45→18:02)
[2022-12-23] MEDS ORDERED: Dextrose 5% in Water 1,000 ML IV PRN ×2 (16:45→18:02)
[2022-12-23] MEDS ORDERED: Ondansetron PF 4 MG/2 ML Vial IVP PRN (16:45)
[2022-12-23] MEDS ORDERED: Ipratropium/Albuterol 3 ML NEB NEB PRN ×2 (16:45→16:49)
[2022-12-23] MEDS ORDERED: Sodium Chloride 0.9% 1,000 ML IV SCH (16:45)
[2022-12-23] MEDS ORDERED: TETANUS, DIPHTHERIA TOX,ADULT (TDVAX) 0.5 ML VIAL IM ONE (16:45)
[2022-12-23] MEDS ORDERED: Cyclobenzaprine 10 MG TAB PO PRN (16:49)
[2022-12-23] MEDS ORDERED: Albuterol 200 PUFF (6.7GM INHALER) INH PRN (16:50)
[2022-12-23] MEDS ORDERED: Acetaminophen 325 MG TAB PO SCH (17:00)
[2022-12-23] MEDS ORDERED: Acetaminophen/Codeine 30-300mg Tablet PO SCH (17:00)
[2022-12-23] MEDS ORDERED: Sodium Chloride 0.9% 500 ML IV SCH (17:59)
[2022-12-23] MEDS ORDERED: HumaLOG 300 UNITS/3 ML VIAL SC PRN ×2 (18:02)
[2022-12-23 18:31] VITALS: BMI 23.2
[2022-12-23] MEDS: Acetaminophen/Codeine 30-300mg Tablet PO SCH ×2 (19:09→23:34)
[2022-12-23] MEDS: Senokot S 8.6-50 MG TAB PO SCH (19:37)
[2022-12-23] MEDS: Gabapentin 100 MG CAP PO SCH (19:37)
[2022-12-23] MEDS: Atorvastatin Calcium 10 MG TAB PO SCH (19:37)
[2022-12-23] MEDS: Morphine 2 MG/ML VIAL SLOW IVP PRN (19:44)
[2022-12-23] MEDS ORDERED: Famotidine/PF 20 mg/2ml Vial SLOW IVP SCH (21:00)
[2022-12-23 23:44] LABS: SARS-CoV-2 NAA Rapid Test Not Detected (NotDetected)
[2022-12-24] MEDS: Acetaminophen/Codeine 30-300mg Tablet PO SCH ×4 (05:30→23:48)
[2022-12-24] MEDS: Ascorbic Acid 500 mg Chewable Tablet PO SCH ×2 (08:35→21:15)
[2022-12-24] MEDS: Ferrous Sulfate 325 MG TAB PO SCH ×2 (08:36→21:15)
[2022-12-24] MEDS: Gabapentin 100 MG CAP PO SCH ×3 (08:36→21:15)
[2022-12-24] MEDS: DULoxetine 30 MG CAP PO SCH (08:36)
[2022-12-24] MEDS: Senokot S 8.6-50 MG TAB PO SCH ×2 (08:37→21:17)
[2022-12-24] MEDS: Sertraline 100 MG TAB PO SCH (08:37)
[2022-12-24] MEDS: Polyethylene Glycol 3350 17 GM Packet PO SCH (08:37)
[2022-12-24] MEDS: Morphine 2 MG/ML VIAL SLOW IVP PRN (08:53)
[2022-12-24] MEDS: Lidocaine 5% Patch TD SCH (15:46)
[2022-12-24] MEDS: Atorvastatin Calcium 10 MG TAB PO SCH (21:15)
[2022-12-24] MEDS ORDERED: Sodium Chloride 0.9% 500 ML IV SCH (22:00)
[2022-12-25 00:29] LABS: Bacteria/HPF 1+ HPF (None Seen); Bilirubin Negative (Negative); Blood, Urine Negative (Negative); CAUTI Indications for Culture Alt mental st,lethar; Clarity Clear (Clear); Glucose, Urine (Dipstick) Normal (Negative); Ketone, Urine Negative (Negative); Leukocyte 250 Leu/uL (Negative); Nitrite Negative (Negative); Protein, Urine (Dipstick) Negative (Neg-Trace); RBC/HPF 0-3 HPF (0-3); Specific Gravity, Urine 1.008 (1.002-1.036); Squamous Epithelial None Seen HPF (0-3); Urobilinogen Normal mg/dL (Less than 2)
[2022-12-25 00:31] LABS: Urine Culture Reflex No No
[2022-12-25] MEDS: Acetaminophen/Codeine 30-300mg Tablet PO SCH ×3 (04:55→18:13)
[2022-12-25 07:33] LABS: #Eosinphils 0.2 thou/uL (0.0-0.7); #Lymphocytes 1.4 thou/uL (1.20-3.40); #Monocytes 0.8 thou/uL (0.11-0.59); %Basophils 0.4 % (0.0-1.0); %Eosinophils 2.2 % (0.0-10.0); %Monocytes 8.2 % (0.0-10.0); %Neutrophils 74.1 % (42.0-75.0); Hemoglobin 8.1 g/dL (12.0-16.0); Mean Corpuscular HGB CONC 33.5 g/dL (32.0-36.0); Mean Corpuscular Hemoglobin 35.6 pg (27.0-31.0); Mean Platelet Volume 8.8 fL (7.4-10.4); Platelet Count 255 10x3/uL (130-400); RBC Distribution Width 14.1 % (11.5-14.5); Red Blood Cell (RBC) Count 2.27 mill/uL (4.20-5.40); White Blood Cell (WBC) Count 9.5 10x3/uL (4.8-10.8)
[2022-12-25 07:52] LABS: Anion Gap 13 mmol/L (10-20); BUN (Urea Nitrogen) 19 mg/dL (9.8-20.1); Calc. Creatinine Clearance 47 mL/min (70-130); Calcium 8.3 mg/dL (7.8-10.44); Carbon Dioxide 24 mmol/L (23-31); Chloride 101 mmol/L (98-107); Estimated GFR 71; Glucose 117 mg/dL (83-110); Potassium 4.5 mmol/L (3.5-5.1); Sodium 133 mmol/L (136-145)
[2022-12-25] MEDS: DULoxetine 30 MG CAP PO SCH (09:06)
[2022-12-25] MEDS: Ferrous Sulfate 325 MG TAB PO SCH ×2 (09:06→21:54)
[2022-12-25] MEDS: Ascorbic Acid 500 mg Chewable Tablet PO SCH ×2 (09:06→21:54)
[2022-12-25] MEDS: Senokot S 8.6-50 MG TAB PO SCH ×2 (09:07→21:54)
[2022-12-25] MEDS: Sertraline 100 MG TAB PO SCH (09:07)
[2022-12-25] MEDS: Gabapentin 100 MG CAP PO SCH ×3 (09:07→21:54)
[2022-12-25] MEDS: Polyethylene Glycol 3350 17 GM Packet PO SCH (09:07)
[2022-12-25] MEDS ORDERED: fentaNYL PF 100 MCG/2 ML SYRINGE ONE ×2 (10:44→13:19)
[2022-12-25] MEDS ORDERED: Phenylephrine 10 MG/ML VIAL ONE (10:44)
[2022-12-25] MEDS ORDERED: CEFAZOLIN 2 GM VIAL ONE (10:47)
[2022-12-25] MEDS ORDERED: Sodium Chloride 0.9% 100 ML ONE (10:47)
[2022-12-25] MEDS ORDERED: Rocuronium Bromide 10 MG/ML (10ML VIAL) ONE (11:25)
[2022-12-25] MEDS ORDERED: PROPOFOL 200 MG/20 ML VIAL ONE (11:25)
[2022-12-25] MEDS ORDERED: ePHEDrine 50 MG/ML VIAL ONE (11:25)
[2022-12-25] MEDS ORDERED: Lidocaine 1% PF 5 ML VIAL ONE (11:25)
[2022-12-25] MEDS ORDERED: SUGAMMADEX SODIUM 200 MG/2 ML VIAL ONE (12:23)
[2022-12-25] MEDS ORDERED: Promethazine HCl 25 MG/ML VIAL IM PRN (12:47)
[2022-12-25] MEDS ORDERED: Ondansetron HCl/PF 4 MG/2 ML Vial IVP PRN (12:47)
[2022-12-25] MEDS: Lidocaine 5% Patch TD SCH (14:05)
[2022-12-25] MEDS: CEFAZOLIN 2 GM in Sodium Chloride 0.9% 100 ML IVPB SCH (18:15)
[2022-12-25] MEDS: Atorvastatin Calcium 10 MG TAB PO SCH (21:55)
[2022-12-26] MEDS: Acetaminophen/Codeine 30-300mg Tablet PO SCH (00:18)
[2022-12-26] MEDS: Acetaminophen 500 MG TAB PO SCH ×4 (00:20→18:00)
[2022-12-26] MEDS: CEFAZOLIN 2 GM in Sodium Chloride 0.9% 100 ML IVPB SCH (03:57)
[2022-12-26 08:18] LABS: #Eosinphils 0.1 thou/uL (0.0-0.7); #Lymphocytes 1.2 thou/uL (1.20-3.40); #Monocytes 0.7 thou/uL (0.11-0.59); #Neutrophils 6.4 thou/uL (1.40-6.50); %Basophils 0.1 % (0.0-1.0); %Eosinophils 1.8 % (0.0-10.0); %Lymphocytes 14.4 % (21.0-51.0); %Monocytes 8.6 % (0.0-10.0); %Neutrophils 75.2 % (42.0-75.0); Hemoglobin 8.4 g/dL (12.0-16.0); Mean Corpuscular HGB CONC 33.3 g/dL (32.0-36.0); Mean Corpuscular Hemoglobin 35.7 pg (27.0-31.0); Mean Platelet Volume 9.3 fL (7.4-10.4); Platelet Count 247 10x3/uL (130-400); RBC Distribution Width 14.5 % (11.5-14.5); Red Blood Cell (RBC) Count 2.34 mill/uL (4.20-5.40); White Blood Cell (WBC) Count 8.5 10x3/uL (4.8-10.8)
[2022-12-26] MEDS ORDERED: Aspirin 81 mg Enteric Coated Tablet PO SCH (09:00)
[2022-12-26] MEDS: DULoxetine 30 MG CAP PO SCH (09:06)
[2022-12-26] MEDS: Sertraline 100 MG TAB PO SCH (09:06)
[2022-12-26] MEDS: Ferrous Sulfate 325 MG TAB PO SCH ×2 (09:06→21:46)
[2022-12-26] MEDS: Ascorbic Acid 500 mg Chewable Tablet PO SCH ×2 (09:06→21:46)
[2022-12-26] MEDS: Senokot S 8.6-50 MG TAB PO SCH ×2 (09:07→21:46)
[2022-12-26] MEDS: Gabapentin 100 MG CAP PO SCH ×3 (09:07→21:46)
[2022-12-26] MEDS: Polyethylene Glycol 3350 17 GM Packet PO SCH (09:07)
[2022-12-26] MEDS: Lidocaine 5% Patch TD SCH (14:07)
[2022-12-26 17:01] LABS: #Eosinphils 0.2 thou/uL (0.0-0.7); #Lymphocytes 1.3 thou/uL (1.20-3.40); #Monocytes 0.6 thou/uL (0.11-0.59); #Neutrophils 5.5 thou/uL (1.40-6.50); %Basophils 0.3 % (0.0-1.0); %Lymphocytes 16.7 % (21.0-51.0); %Monocytes 8.3 % (0.0-10.0); %Neutrophils 71.7 % (42.0-75.0); Hemoglobin 7.8 g/dL (12.0-16.0); Mean Corpuscular HGB CONC 33.8 g/dL (32.0-36.0); Mean Corpuscular Hemoglobin 36.3 pg (27.0-31.0); Mean Platelet Volume 9.1 fL (7.4-10.4); Platelet Count 236 10x3/uL (130-400); RBC Distribution Width 14.5 % (11.5-14.5); Red Blood Cell (RBC) Count 2.15 mill/uL (4.20-5.40); White Blood Cell (WBC) Count 7.6 10x3/uL (4.8-10.8)
[2022-12-26] MEDS: Atorvastatin Calcium 10 MG TAB PO SCH (21:46)
[2022-12-27] MEDS: Acetaminophen 500 MG TAB PO SCH ×2 (00:44→05:41)
[2022-12-27 02:04] LABS: #Eosinphils 0.4 thou/uL (0.0-0.7); #Lymphocytes 1.7 thou/uL (1.20-3.40); #Monocytes 0.8 thou/uL (0.11-0.59); #Neutrophils 4.9 thou/uL (1.40-6.50); %Basophils 0.1 % (0.0-1.0); %Eosinophils 5.1 % (0.0-10.0); %Lymphocytes 22.2 % (21.0-51.0); %Monocytes 9.9 % (0.0-10.0); %Neutrophils 62.7 % (42.0-75.0); Hemoglobin 8.2 g/dL (12.0-16.0); Mean Corpuscular HGB CONC 31.8 g/dL (32.0-36.0); Mean Corpuscular Hemoglobin 34.5 pg (27.0-31.0); Mean Platelet Volume 9.5 fL (7.4-10.4); Platelet Count 233 10x3/uL (130-400); RBC Distribution Width 14.8 % (11.5-14.5); Red Blood Cell (RBC) Count 2.37 mill/uL (4.20-5.40); White Blood Cell (WBC) Count 7.8 10x3/uL (4.8-10.8)
[2022-12-27 08:15] VITALS: BP 115/77; TEMP 97.6
[2022-12-27] MEDS: Gabapentin 100 MG CAP PO SCH (08:27)
[2022-12-27] MEDS: Ferrous Sulfate 325 MG TAB PO SCH (08:27)
[2022-12-27] MEDS: Sertraline 100 MG TAB PO SCH (08:27)
[2022-12-27] MEDS: DULoxetine 30 MG CAP PO SCH (08:27)
[2022-12-27] MEDS: Ascorbic Acid 500 mg Chewable Tablet PO SCH (08:27)
[2022-12-27] MEDS: Polyethylene Glycol 3350 17 GM Packet PO SCH (08:37)
[2022-12-27] MEDS: Senokot S 8.6-50 MG TAB PO SCH (08:37)
== END 2022-12-27 08:45 | DRG 480 ==
LOC: ERS 14:28 → SURG B 18:18
PROVIDERS: ADMIT Surgery; ATTEND Surgery
PROC: 0QS604Z Reposition Right Upper Femur with Internal Fixation Device, Open Approach (ICD-10-PCS; principal; 2022-12-25)
DX: S72.141A Displaced intertrochanteric fracture of right femur, initial encounter for closed fracture (principal); G92.8 Other toxic encephalopathy; I13.0 Hypertensive heart and chronic kidney disease with heart failure and stage 1 through stage 4 chronic kidney disease, or unspecified chronic kidney disease; N17.9 Acute kidney failure, unspecified; I50.9 Heart failure, unspecified; J44.9 Chronic obstructive pulmonary disease, unspecified; I25.10 Atherosclerotic heart disease of native coronary artery without angina pectoris; K21.9 Gastro-esophageal reflux disease without esophagitis; N18.30 Chronic kidney disease, stage 3 unspecified; F41.9 Anxiety disorder, unspecified; E11.22 Type 2 diabetes mellitus with diabetic chronic kidney disease; Z20.822 Contact with and (suspected) exposure to COVID-19; W19.XXXA Unspecified fall, initial encounter; T50.995A Adverse effect of other drugs, medicaments and biological substances, initial encounter; Y92.89 Other specified places as the place of occurrence of the external cause; I25.2 Old myocardial infarction; Z98.890 Other specified postprocedural states; Z95.1 Presence of aortocoronary bypass graft; Z90.49 Acquired absence of other specified parts of digestive tract; Z88.0 Allergy status to penicillin
CPT/HCPCS: 36415; 36416; 71045; 72170; 80048; 80053; 81001; 85025; 85610; 85730; 86850; 86900; 86901; 93005; 96374; 96375; C1713; G0390; J1650; J2270; J2272; J2370; J2405; J2704; J3490; J7050; U0002

== ENCOUNTER 2023-03-12 10:06 | Observation (INO) | payer MEDICARE, MEDICAID ==
[2023-03-12] MEDS ORDERED: Iopamidol 370 76% 100 ML VIAL ONE (10:27)
[2023-03-12 10:54] LABS: #Lymphocytes 1.1 thou/uL (1.20-3.40); #Monocytes 0.6 thou/uL (0.11-0.59); #Neutrophils 8.5 thou/uL (1.40-6.50); %Basophils 0.2 % (0.0-1.0); %Eosinophils 0.2 % (0.0-10.0); %Lymphocytes 10.7 % (21.0-51.0); %Monocytes 5.6 % (0.0-10.0); %Neutrophils 83.2 % (42.0-75.0); Hemoglobin 12.2 g/dL (12.0-16.0); Mean Corpuscular HGB CONC 33.8 g/dL (32.0-36.0); Mean Corpuscular Hemoglobin 36.7 pg (27.0-31.0); Mean Platelet Volume 10.6 fL (7.4-10.4); Platelet Count 200 10x3/uL (130-400); Red Blood Cell (RBC) Count 3.33 mill/uL (4.20-5.40); White Blood Cell (WBC) Count 10.2 10x3/uL (4.8-10.8)
[2023-03-12 11:11] LABS: MDiff Complete? YES; Macrocytosis SLIGHT = 6-15 cells (100X) (0-5/hpf); Platelet Morphology Comment Appears Adequate; Polychromasia SLIGHT = 2-3 cells (100X) (0-2/hpf)
[2023-03-12 11:12] LABS: ALT (SGPT) Less than 7 U/L (8-55); AST (SGOT) 10 U/L (5-34); Albumin 3.7 g/dL (3.4-4.8); Alkaline Phosphatase 133 U/L (40-110); Anion Gap 16 mmol/L (10-20); BUN (Urea Nitrogen) 19 mg/dL (9.8-20.1); Bilirubin, Total 0.7 mg/dL (0.2-1.2); Calc. Creatinine Clearance 0 mL/min (70-130); Calcium 9.1 mg/dL (7.8-10.44); Carbon Dioxide 28 mmol/L (23-31); Chloride 100 mmol/L (98-107); Estimated GFR 58; Globulin 2.3 g/dL (2.4-3.5); Glucose 201 mg/dL (83-110); Potassium 3.4 mmol/L (3.5-5.1); Sodium 141 mmol/L (136-145)
[2023-03-12] MEDS ORDERED: Pantoprazole 40 MG VIAL IVP SCH (15:15)
[2023-03-12] MEDS ORDERED: Senokot S 8.6-50 MG TAB PO PRN (15:51)
[2023-03-12] MEDS ORDERED: Dextrose 5% in Water 1,000 ML IV PRN (15:51)
[2023-03-12] MEDS ORDERED: Acetaminophen 650 MG Suppository PR PRN (15:51)
[2023-03-12] MEDS ORDERED: Guaifenesin DM 100-10/5 ML UDCUP PO PRN (15:51)
[2023-03-12] MEDS ORDERED: Ondansetron PF 4 MG/2 ML Vial IVP PRN (15:51)
[2023-03-12] MEDS ORDERED: Dextrose 50% Abboject 50 ML SYRINGE SLOW IVP PRN (15:51)
[2023-03-12] MEDS ORDERED: Ondansetron ODT 4 MG TAB PO PRN (15:51)
[2023-03-12] MEDS ORDERED: HumaLOG 300 UNITS/3 ML VIAL SC PRN (15:51)
[2023-03-12] MEDS ORDERED: Acetaminophen 325 MG TAB PO PRN (15:51)
[2023-03-12] MEDS ORDERED: Promethazine HCl 12.5 MG in Sodium Chloride 0.9% 50 ML IVPB PRN (15:51)
[2023-03-12] MEDS: Dextrose 5 %-0.45 % NaCl 1,000 ML IV SCH (16:13)
[2023-03-12 16:42] VITALS: BMI 21.5
[2023-03-12] MEDS: HumaLOG 300 UNITS/3 ML VIAL SC PRN (18:19)
[2023-03-12] MEDS ORDERED: Mineral Oil ENEMA PR SCH (19:00)
[2023-03-12] MEDS: Pantoprazole 40 MG VIAL IVP SCH (20:36)
[2023-03-13] MEDS: Dextrose 5 %-0.45 % NaCl 1,000 ML IV SCH (06:08)
[2023-03-13 06:47] LABS: #Eosinphils 0.1 thou/uL (0.0-0.7); #Lymphocytes 2.1 thou/uL (1.20-3.40); #Monocytes 1.1 thou/uL (0.11-0.59); #Neutrophils 9.3 thou/uL (1.40-6.50); %Basophils 0.1 % (0.0-1.0); %Eosinophils 0.8 % (0.0-10.0); %Lymphocytes 16.9 % (21.0-51.0); %Monocytes 8.7 % (0.0-10.0); %Neutrophils 73.5 % (42.0-75.0); Hemoglobin 9.7 g/dL (12.0-16.0); Mean Corpuscular HGB CONC 31.8 g/dL (32.0-36.0); Mean Corpuscular Hemoglobin 34.9 pg (27.0-31.0); Mean Platelet Volume 10.5 fL (7.4-10.4); Platelet Count 169 10x3/uL (130-400); RBC Distribution Width 12.2 % (11.5-14.5); Red Blood Cell (RBC) Count 2.79 mill/uL (4.20-5.40); White Blood Cell (WBC) Count 12.6 10x3/uL (4.8-10.8)
[2023-03-13 07:17] LABS: Anion Gap 13 mmol/L (10-20); BUN (Urea Nitrogen) 20 mg/dL (9.8-20.1); Calc. Creatinine Clearance 41 mL/min (70-130); Calcium 8.1 mg/dL (7.8-10.44); Carbon Dioxide 27 mmol/L (23-31); Chloride 99 mmol/L (98-107); Estimated GFR 66; Glucose 139 mg/dL (83-110); Sodium 136 mmol/L (136-145)
[2023-03-13] MEDS: Polyethylene Glycol 3350 17 GM Packet PO SCH (08:26)
[2023-03-13] MEDS: Pantoprazole 40 MG VIAL IVP SCH (08:26)
[2023-03-13 11:00] LABS: Bilirubin Unable to Interpret (Negative); Blood, Urine Unable to Interpret (Negative); Clarity Hazy (Clear); Glucose, Urine (Dipstick) Unable to Interpret mg/dL (Negative); Ketone, Urine Unable to Interpret mg/dL (Negative); Leukocyte Unable to Interpret Leu/uL (Negative); Nitrite Unable to Interpret (Negative); Protein, Urine (Dipstick) Unable to Interpret mg/dL (Neg-Trace); Specific Gravity, Urine 1.034 (1.002-1.036); Urobilinogen UNABLE TO INTERPRET mg/dL (Less than 2); pH, Urine 6.1 (5.0-9.0)
[2023-03-13 11:04] LABS: Bacteria/HPF 4+ HPF (None Seen)
[2023-03-13] MEDS: HumaLOG 300 UNITS/3 ML VIAL SC PRN (13:01)
[2023-03-13] MEDS: Sodium Chloride 0.9% 1,000 ML IV SCH ×2 (15:52→22:38)
[2023-03-13] MEDS: Gabapentin 100 MG CAP PO SCH ×2 (15:52→20:39)
[2023-03-13] MEDS ORDERED: Potassium Chloride 20 MEQ TAB PO SCH (16:45)
[2023-03-13] MEDS ORDERED: Atorvastatin Calcium 10 MG TAB PO SCH (21:00)
[2023-03-14] MEDS: Gabapentin 100 MG CAP PO SCH ×2 (08:39→15:23)
[2023-03-14] MEDS: Polyethylene Glycol 3350 17 GM Packet PO SCH (08:39)
[2023-03-14] MEDS ORDERED: DULoxetine 30 MG CAP PO SCH (09:00)
[2023-03-14] MEDS ORDERED: Alogliptin 25 MG TAB PO SCH (09:00)
[2023-03-14] MEDS ORDERED: Sertraline 25 MG TAB PO SCH (09:00)
[2023-03-14 11:07] LABS: Anion Gap 11 mmol/L (10-20); BUN (Urea Nitrogen) 15 mg/dL (9.8-20.1); Calc. Creatinine Clearance 47 mL/min (70-130); Calcium 8.2 mg/dL (7.8-10.44); Carbon Dioxide 25 mmol/L (23-31); Chloride 106 mmol/L (98-107); Estimated GFR 79; Glucose 118 mg/dL (83-110); Potassium 3.5 mmol/L (3.5-5.1); Sodium 138 mmol/L (136-145)
[2023-03-14 14:18] LABS: Bacteria/HPF 2+ HPF (None Seen); Bilirubin Negative (Negative); Blood, Urine 3+ (Negative); CAUTI Indications for Culture Pelvic or flank pain; Clarity Turbid (Clear); Glucose, Urine (Dipstick) Normal (Negative); Ketone, Urine Negative (Negative); Leukocyte 250 Leu/uL (Negative); Nitrite Negative (Negative); Protein, Urine (Dipstick) Negative (Neg-Trace); RBC/HPF 0-3 HPF (0-3); Specific Gravity, Urine 1.006 (1.002-1.036); Squamous Epithelial None Seen HPF (0-3)
[2023-03-14 14:21] LABS: Urine Culture Reflex No No
[2023-03-14 16:47] VITALS: BP 147/61; TEMP 97.2
== END 2023-03-14 17:09 ==
LOC: EDUNIT# 10:06 → ERS 10:06 → T4-B 15:34
PROVIDERS: ADMIT Hospitalist; ATTEND Hospitalist
DX: R11.2 Nausea with vomiting, unspecified (principal); N39.0 Urinary tract infection, site not specified; I13.0 Hypertensive heart and chronic kidney disease with heart failure and stage 1 through stage 4 chronic kidney disease, or unspecified chronic kidney disease; E11.22 Type 2 diabetes mellitus with diabetic chronic kidney disease; N18.30 Chronic kidney disease, stage 3 unspecified; I50.32 Chronic diastolic (congestive) heart failure; K59.00 Constipation, unspecified; K52.89 Other specified noninfective gastroenteritis and colitis; I25.10 Atherosclerotic heart disease of native coronary artery without angina pectoris; E78.5 Hyperlipidemia, unspecified; G89.29 Other chronic pain; J44.9 Chronic obstructive pulmonary disease, unspecified; K44.9 Diaphragmatic hernia without obstruction or gangrene; K76.0 Fatty (change of) liver, not elsewhere classified; Z79.84 Long term (current) use of oral hypoglycemic drugs; Z79.899 Other long term (current) drug therapy; Z88.0 Allergy status to penicillin; Z95.1 Presence of aortocoronary bypass graft; Z95.5 Presence of coronary angioplasty implant and graft
CPT/HCPCS: 74177; 80048 ×2; 80053; 81001 ×2; 82962 ×3; 83690; 85025 ×2; 93005; 96361; 96374; 96376 ×2; 99285; G0378 ×4; 36415; 36416; 82274; 96360; C9113; J1815; J2405; J2550; J7042; J7050; Q9967

== ENCOUNTER 2023-05-22 06:08 | Emergency (ER) | payer OTHER, MEDICAID, MEDICARE ==
[2023-05-22 07:19] LABS: #Eosinphils 0.1 thou/uL (0.0-0.7); #Monocytes 0.7 thou/uL (0.11-0.59); #Neutrophils 5.6 thou/uL (1.40-6.50); %Basophils 0.5 % (0.0-1.0); %Eosinophils 1.1 % (0.0-10.0); %Lymphocytes 23.9 % (21.0-51.0); %Neutrophils 66.1 % (42.0-75.0); Hemoglobin 11.6 g/dL (12.0-16.0); Mean Corpuscular HGB CONC 33.9 g/dL (32.0-36.0); Mean Corpuscular Hemoglobin 34.6 pg (27.0-31.0); Mean Corpuscular Volume 102.1 fl (78.0-98.0); Mean Platelet Volume 12.7 fL (7.4-10.4); Platelet Count 226 10x3/uL (130-400); RBC Distribution Width 12.1 % (11.5-14.5); Red Blood Cell (RBC) Count 3.35 mill/uL (4.20-5.40); White Blood Cell (WBC) Count 8.5 10x3/uL (4.8-10.8)
[2023-05-22 07:33] LABS: PTT 26.4 sec (22.9-36.1); Prothrombin Time 13.8 sec (12.0-14.7)
[2023-05-22 07:45] LABS: ALT (SGPT) Less than 7 U/L (8-55); AST (SGOT) 10 U/L (5-34); Albumin 3.6 g/dL (3.4-4.8); Alkaline Phosphatase 89 U/L (40-110); Anion Gap 17 mmol/L (10-20); BUN (Urea Nitrogen) 17 mg/dL (9.8-20.1); Bilirubin, Total 0.6 mg/dL (0.2-1.2); Calc. Creatinine Clearance 0 mL/min (70-130); Calcium 9.7 mg/dL (7.8-10.44); Carbon Dioxide 26 mmol/L (23-31); Chloride 103 mmol/L (98-107); Estimated GFR 69; Globulin 2.3 g/dL (2.4-3.5); Glucose 135 mg/dL (83-110); Potassium 3.5 mmol/L (3.5-5.1); Protein, Total 5.9 g/dL (5.8-8.1); Sodium 142 mmol/L (136-145)
[2023-05-22] MEDS ORDERED: Pantoprazole 40 MG VIAL ONE (07:52)
[2023-05-22] MEDS ORDERED: Sodium Chloride 0.9% 1,000 ML IV SCH (08:00)
[2023-05-22] MEDS ORDERED: Pantoprazole 80 MG, Admixture Fee 1 EACH in Sodium Chloride 0.9% 100 ML IVP SCH (08:00)
== END 2023-05-22 12:37 | disposition home or self-care (01) ==
LOC: ERS 06:08
DX: R11.2 Nausea with vomiting, unspecified (principal); J44.9 Chronic obstructive pulmonary disease, unspecified; E78.5 Hyperlipidemia, unspecified; E11.22 Type 2 diabetes mellitus with diabetic chronic kidney disease; N18.30 Chronic kidney disease, stage 3 unspecified; I13.0 Hypertensive heart and chronic kidney disease with heart failure and stage 1 through stage 4 chronic kidney disease, or unspecified chronic kidney disease; I50.9 Heart failure, unspecified
CPT/HCPCS: 36415; 80053; 82274; 85025; 85610; 85730; 86850; 86870; 86900; 86901; 86922; 96361; 96365; 96366; 96376; C9113; J3490

== ENCOUNTER 2023-09-04 10:45 | Outpatient (CLI) | payer MEDICARE, MEDICAID ==
[~2023-09-04 10:45] MED LIST: Iopamidol 370 76% 100 ML VIAL ONE
== END 2023-09-04 10:46 | disposition home or self-care (01) ==
LOC: BICCT 10:45
PROVIDERS: ATTEND Internal Medicine Cardiovascular Disease
DX: I50.32 Chronic diastolic (congestive) heart failure (principal); K44.9 Diaphragmatic hernia without obstruction or gangrene
CPT/HCPCS: 71260; 82565; Q9967

== ENCOUNTER 2023-12-10 22:55 | Inpatient (IN) | payer MEDICARE, MEDICAID ==
[2023-12-10] MEDS ORDERED: Pantoprazole 40 MG VIAL ONE (23:10)
[2023-12-11 00:10] LABS: #Monocytes 1.9 thou/uL (0.11-0.59); #Neutrophils 19.6 thou/uL (1.40-6.50); %Basophils 0.1 % (0.0-1.0); %Lymphocytes 7.1 % (21.0-51.0); Hematocrit 31.3 % (36.0-47.0); Mean Corpuscular HGB CONC 35.1 g/dL (32.0-36.0); Mean Corpuscular Hemoglobin 34.8 pg (27.0-31.0); Mean Corpuscular Volume 99.1 fl (78.0-98.0); Platelet Count 261 10x3/uL (130-400); RBC Distribution Width 13.7 % (11.5-14.5); Red Blood Cell (RBC) Count 3.16 mill/uL (4.20-5.40); White Blood Cell (WBC) Count 23.3 10x3/uL (4.8-10.8)
[2023-12-11] MEDS ORDERED: Ondansetron PF 4 MG/2 ML Vial ONE ×2 (00:19→03:31)
[2023-12-11 00:21] LABS: ALT (SGPT) 13 U/L (8-55); AST (SGOT) 13 U/L (5-34); Albumin 3.9 g/dL (3.4-4.8); Alkaline Phosphatase 76 U/L (40-110); Anion Gap 22 mmol/L (10-20); BUN (Urea Nitrogen) 37 mg/dL (9.8-20.1); Bilirubin, Total 1.3 mg/dL (0.2-1.2); Calc. Creatinine Clearance 0 mL/min (70-130); Calcium 9.2 mg/dL (7.8-10.44); Carbon Dioxide 31 mmol/L (23-31); Chloride 85 mmol/L (98-107); Estimated GFR 48; Globulin 2.4 g/dL (2.4-3.5); Glucose 220 mg/dL (83-110); Lipase 19 U/L (8-78); Protein, Total 6.3 g/dL (5.8-8.1); Sodium 135 mmol/L (136-145)
[2023-12-11 00:24] LABS: Potassium 2.5 mmol/L (3.5-5.1)
[2023-12-11] MEDS ORDERED: Potassium Chloride 20 MEQ (100 mL) BAG ONE (00:31)
[2023-12-11 00:33] LABS: RBC Morph Comment Within Normal Limits
[2023-12-11 00:36] LABS: INR-International Normal Ratio 1.1; Prothrombin Time 14.6 sec (12.0-14.7)
[2023-12-11] MEDS ORDERED: Acetaminophen 325 MG TAB PO PRN (08:54)
[2023-12-11] MEDS ORDERED: Glucagon 1 MG/ML KIT IM PRN (09:13)
[2023-12-11] MEDS ORDERED: Dextrose 50% Abboject 50 ML SYRINGE SLOW IVP PRN (09:13)
[2023-12-11] MEDS ORDERED: HumaLOG 300 UNITS/3 ML VIAL SC PRN ×2 (09:13)
[2023-12-11] MEDS ORDERED: Dextrose 5% in Water 1,000 ML IV PRN (09:13)
[2023-12-11 09:17] LABS: #Monocytes 1.4 thou/uL (0.11-0.59); #Neutrophils 11.4 thou/uL (1.40-6.50); %Basophils 0.2 % (0.0-1.0); %Lymphocytes 10.6 % (21.0-51.0); %Monocytes 9.5 % (0.0-10.0); %Neutrophils 79.1 % (42.0-75.0); Hematocrit 26.8 % (36.0-47.0); Hemoglobin 9.2 g/dL (12.0-16.0); Mean Corpuscular HGB CONC 34.3 g/dL (32.0-36.0); Mean Corpuscular Hemoglobin 34.2 pg (27.0-31.0); Mean Corpuscular Volume 99.6 fl (78.0-98.0); Mean Platelet Volume 13.8 fL (7.4-10.4); Platelet Count 177 10x3/uL (130-400); RBC Distribution Width 14.3 % (11.5-14.5); Red Blood Cell (RBC) Count 2.69 mill/uL (4.20-5.40); White Blood Cell (WBC) Count 14.4 10x3/uL (4.8-10.8)
[2023-12-11] MEDS ORDERED: Pantoprazole 40 MG VIAL ONE (09:19)
[2023-12-11 09:39] LABS: Anion Gap 12 mmol/L (10-20); BUN (Urea Nitrogen) 41 mg/dL (9.8-20.1); Calc. Creatinine Clearance 38 mL/min (70-130); Calcium 8.1 mg/dL (7.8-10.44); Carbon Dioxide 32 mmol/L (23-31); Chloride 93 mmol/L (98-107); Estimated GFR 63; Glucose 178 mg/dL (83-110); Magnesium 1.6 mg/dL (1.6-2.6); Phosphorus 3.4 mg/dL (2.3-4.7); Potassium 2.8 mmol/L (3.5-5.1); Sodium 134 mmol/L (136-145)
[2023-12-11] MEDS: Sodium Chloride 0.9% 1,000 ML IV SCH (09:42)
[2023-12-11] MEDS: Pantoprazole 40 MG VIAL IVP SCH (09:42)
[2023-12-11] MEDS ORDERED: Iopamidol-370 76% 500 ML MDV (1 ML CHARGE) ONE (14:57)
[2023-12-11] MEDS ORDERED: Electrolyte Replacement Protocol FS PRN (17:30)
[2023-12-11] MEDS: Potassium Chloride 20 MEQ in Premix 1 BAG IVPB SCH (17:38)
[2023-12-11] MEDS: Magnesium 2 GM/50 ML(in water) 2 GM in Premix 1 BAG IVPB SCH (17:38)
[2023-12-12 04:51] LABS: #Monocytes 0.8 thou/uL (0.11-0.59); #Neutrophils 3.9 thou/uL (1.40-6.50); %Basophils 0.1 % (0.0-1.0); %Eosinophils 0.3 % (0.0-10.0); %Lymphocytes 28.6 % (21.0-51.0); %Neutrophils 57.8 % (42.0-75.0); Hematocrit 23.9 % (36.0-47.0); Hemoglobin 7.8 g/dL (12.0-16.0); Mean Corpuscular HGB CONC 32.6 g/dL (32.0-36.0); Mean Corpuscular Hemoglobin 34.7 pg (27.0-31.0); Mean Platelet Volume 13.7 fL (7.4-10.4); Platelet Count 132 10x3/uL (130-400); RBC Distribution Width 14.4 % (11.5-14.5); Red Blood Cell (RBC) Count 2.25 mill/uL (4.20-5.40); White Blood Cell (WBC) Count 6.7 10x3/uL (4.8-10.8)
[2023-12-12 04:54] LABS: Mean Corpuscular Volume 106.2 fl (78.0-98.0)
[2023-12-12 05:25] LABS: Anion Gap 11 mmol/L (10-20); BUN (Urea Nitrogen) 26 mg/dL (9.8-20.1); Calc. Creatinine Clearance 43 mL/min (70-130); Calcium 7.7 mg/dL (7.8-10.44); Carbon Dioxide 26 mmol/L (23-31); Chloride 105 mmol/L (98-107); Estimated GFR 72; Glucose 102 mg/dL (83-110); Magnesium 2.2 mg/dL (1.6-2.6); Potassium 3.5 mmol/L (3.5-5.1); Sodium 138 mmol/L (136-145)
[2023-12-12] MEDS ORDERED: PROPOFOL 20 ML ONE (08:12)
[2023-12-12] MEDS: Potassium Chloride 20 MEQ in Premix 1 BAG IVPB SCH (09:53)
[2023-12-12] MEDS: Ondansetron PF 4 MG/2 ML Vial IVP PRN (10:00)
[2023-12-12] MEDS: Furosemide 20 MG (2 mL) VIAL SLOW IVP SCH (13:01)
[2023-12-12] MEDS: Lorazepam 2 MG/ML VIAL SLOW IVP PRN (16:55)
[2023-12-13] MEDS ORDERED: Albuterol 200 PUFF (6.7GM INHALER) INH PRN (14:52)
[2023-12-13] MEDS: Promethazine HCl 6.25 MG in Sodium Chloride 0.9% 50 ML IVPB PRN (15:24)
[2023-12-13] MEDS: Melatonin 3 MG TAB PO PRN (19:47)
[2023-12-13] MEDS: Atorvastatin Calcium 10 MG TAB PO SCH (19:47)
[2023-12-14 04:29] LABS: #Eosinphils 0.1 thou/uL (0.0-0.7); #Monocytes 0.6 thou/uL (0.11-0.59); #Neutrophils 3.5 thou/uL (1.40-6.50); %Basophils 0.2 % (0.0-1.0); %Eosinophils 1.1 % (0.0-10.0); %Monocytes 10.4 % (0.0-10.0); Hematocrit 21.9 % (36.0-47.0); Hemoglobin 7.2 g/dL (12.0-16.0); Mean Corpuscular HGB CONC 32.9 g/dL (32.0-36.0); Mean Corpuscular Volume 106.3 fl (78.0-98.0); Mean Platelet Volume 13.6 fL (7.4-10.4); Platelet Count 145 10x3/uL (130-400); RBC Distribution Width 13.4 % (11.5-14.5); Red Blood Cell (RBC) Count 2.06 mill/uL (4.20-5.40); White Blood Cell (WBC) Count 6.1 10x3/uL (4.8-10.8)
[2023-12-14 04:57] LABS: Anion Gap 11 mmol/L (10-20); BUN (Urea Nitrogen) 14 mg/dL (9.8-20.1); Calc. Creatinine Clearance 45 mL/min (70-130); Calcium 7.9 mg/dL (7.8-10.44); Carbon Dioxide 26 mmol/L (23-31); Chloride 106 mmol/L (98-107); Estimated GFR 78; Glucose 124 mg/dL (83-110); Sodium 140 mmol/L (136-145)
[2023-12-14 05:09] LABS: Potassium 2.6 mmol/L (3.5-5.1)
[2023-12-14 05:32] LABS: Magnesium 1.7 mg/dL (1.6-2.6)
[2023-12-14] MEDS: Potassium Chloride 20 MEQ in Premix 1 BAG IVPB SCH ×3 (05:40→20:42)
[2023-12-14] MEDS: Potassium Bicarbonate/Cit Ac 20 MEQ TAB PO SCH (05:40)
[2023-12-14] MEDS ORDERED: MD-Gastroview 120 ML BOT ONE (07:48)
[2023-12-14] MEDS ORDERED: Potassium Chloride 20 MEQ in Premix 1 BAG IVPB SCH ×2 (08:15→11:00)
[2023-12-14] MEDS ORDERED: Potassium Chloride 20 MEQ TAB PO SCH (09:30)
[2023-12-14] MEDS: Ondansetron PF 4 MG/2 ML Vial IVP SCH (09:35)
[2023-12-14] MEDS: Amlodipine 5 MG TAB PO SCH (10:14)
[2023-12-14] MEDS: DULoxetine 30 MG CAP PO SCH (10:14)
[2023-12-14] MEDS: Magnesium 2 GM/50 ML(in water) 2 GM in Premix 1 BAG IVPB SCH (10:14)
[2023-12-14] MEDS: Sertraline 25 MG TAB PO SCH (10:14)
[2023-12-14 16:28] LABS: Potassium 2.9 mmol/L (3.5-5.1)
[2023-12-15 05:09] LABS: #Eosinphils 0.2 thou/uL (0.0-0.7); #Monocytes 0.5 thou/uL (0.11-0.59); #Neutrophils 2.8 thou/uL (1.40-6.50); %Basophils 0.2 % (0.0-1.0); %Eosinophils 2.8 % (0.0-10.0); %Lymphocytes 35.3 % (21.0-51.0); %Monocytes 8.8 % (0.0-10.0); %Neutrophils 52.1 % (42.0-75.0); Hematocrit 21.6 % (36.0-47.0); Hemoglobin 7.1 g/dL (12.0-16.0); Mean Corpuscular HGB CONC 32.9 g/dL (32.0-36.0); Mean Corpuscular Hemoglobin 35.3 pg (27.0-31.0); Mean Corpuscular Volume 107.5 fl (78.0-98.0); Mean Platelet Volume 13.9 fL (7.4-10.4); Platelet Count 152 10x3/uL (130-400); RBC Distribution Width 13.9 % (11.5-14.5); Red Blood Cell (RBC) Count 2.01 mill/uL (4.20-5.40); White Blood Cell (WBC) Count 5.3 10x3/uL (4.8-10.8)
[2023-12-15 05:40] LABS: Anion Gap 9 mmol/L (10-20); BUN (Urea Nitrogen) 10 mg/dL (9.8-20.1); Calc. Creatinine Clearance 51 mL/min (70-130); Calcium 7.5 mg/dL (7.8-10.44); Carbon Dioxide 23 mmol/L (23-31); Chloride 110 mmol/L (98-107); Estimated GFR 86; Glucose 103 mg/dL (83-110); Magnesium 1.9 mg/dL (1.6-2.6); Potassium 3.7 mmol/L (3.5-5.1); Sodium 138 mmol/L (136-145)
[2023-12-15] MEDS: Magnesium 2 GM/50 ML(in water) 2 GM in Premix 1 BAG IVPB SCH (07:57)
[2023-12-16 04:43] LABS: #Eosinphils 0.2 thou/uL (0.0-0.7); #Monocytes 0.5 thou/uL (0.11-0.59); #Neutrophils 2.7 thou/uL (1.40-6.50); %Basophils 0.2 % (0.0-1.0); %Eosinophils 3.5 % (0.0-10.0); %Lymphocytes 35.8 % (21.0-51.0); %Monocytes 8.8 % (0.0-10.0); %Neutrophils 50.8 % (42.0-75.0); Hematocrit 21.1 % (36.0-47.0); Hemoglobin 6.9 g/dL (12.0-16.0); Mean Corpuscular HGB CONC 32.7 g/dL (32.0-36.0); Mean Corpuscular Hemoglobin 34.8 pg (27.0-31.0); Mean Corpuscular Volume 106.6 fl (78.0-98.0); Mean Platelet Volume 13.3 fL (7.4-10.4); Platelet Count 145 10x3/uL (130-400); RBC Distribution Width 14.2 % (11.5-14.5); Red Blood Cell (RBC) Count 1.98 mill/uL (4.20-5.40); White Blood Cell (WBC) Count 5.4 10x3/uL (4.8-10.8)
[2023-12-16 05:19] LABS: Anion Gap 8 mmol/L (10-20); BUN (Urea Nitrogen) 8 mg/dL (9.8-20.1); Calc. Creatinine Clearance 43 mL/min (70-130); Calcium 7.9 mg/dL (7.8-10.44); Carbon Dioxide 26 mmol/L (23-31); Chloride 107 mmol/L (98-107); Estimated GFR 83; Glucose 103 mg/dL (83-110); Sodium 137 mmol/L (136-145)
[2023-12-16 09:06] VITALS: BMI 18.6
[2023-12-16] MEDS: Magnesium 2 GM/50 ML(in water) 2 GM in Premix 1 BAG IVPB SCH (13:06)
[2023-12-17 00:19] VITALS: BP 137/63; TEMP 99.1
== END 2023-12-16 20:57 | DRG 380 ==
LOC: ERS 22:55 → ERHOLD 12-11 04:25 → 2NO 12-11 15:05
PROVIDERS: ADMIT Student in an Organized Health Care Education/Training Program; ATTEND Hospitalist
PROC: 0DJ08ZZ Inspection of Upper Intestinal Tract, Via Natural or Artificial Opening Endoscopic (ICD-10-PCS; principal; 2023-12-12)
PROC: 30233N1 Transfusion of Nonautologous Red Blood Cells into Peripheral Vein, Percutaneous Approach (ICD-10-PCS; 2023-12-16)
DX: K22.11 Ulcer of esophagus with bleeding (principal); K56.2 Volvulus; D62 Acute posthemorrhagic anemia; I13.0 Hypertensive heart and chronic kidney disease with heart failure and stage 1 through stage 4 chronic kidney disease, or unspecified chronic kidney disease; K44.9 Diaphragmatic hernia without obstruction or gangrene; E78.5 Hyperlipidemia, unspecified; I25.10 Atherosclerotic heart disease of native coronary artery without angina pectoris; I50.9 Heart failure, unspecified; K21.9 Gastro-esophageal reflux disease without esophagitis; N18.30 Chronic kidney disease, stage 3 unspecified; E87.6 Hypokalemia; Z79.899 Other long term (current) drug therapy; Z88.0 Allergy status to penicillin; Z95.5 Presence of coronary angioplasty implant and graft; Z79.51 Long term (current) use of inhaled steroids; Z98.890 Other specified postprocedural states; Z90.49 Acquired absence of other specified parts of digestive tract; Z90.89 Acquired absence of other organs
CPT/HCPCS: 36415; 36416; 36430; 71045; 74177; 74250; 80048; 80053; 83690; 83735; 84100; 85025; 85610; 85730; 86850; 86900; 86901; 86922; 93005; 94760; 96365; 96366; 96375; 96376; C9113; J1940; J2060; J2405; J2550; J2704; J3475; J3480; J7050; P9016; Q9963; Q9967

== ENCOUNTER 2023-12-29 11:32 | Inpatient (IN) | payer MEDICARE, MEDICAID ==
[2023-12-29] MEDS ORDERED: Iopamidol-370 76% 500 ML MDV (1 ML CHARGE) ONE (12:27)
[2023-12-29 13:06] LABS: #Monocytes 0.7 thou/uL (0.11-0.59); #Neutrophils 14.9 thou/uL (1.40-6.50); %Basophils 0.2 % (0.0-1.0); %Eosinophils 0.1 % (0.0-10.0); %Lymphocytes 3.8 % (21.0-51.0); %Monocytes 4.5 % (0.0-10.0); %Neutrophils 90.9 % (42.0-75.0); Hematocrit 34.4 % (36.0-47.0); Hemoglobin 11.4 g/dL (12.0-16.0); Mean Corpuscular HGB CONC 33.1 g/dL (32.0-36.0); Mean Corpuscular Hemoglobin 32.9 pg (27.0-31.0); Mean Corpuscular Volume 99.4 fl (78.0-98.0); Mean Platelet Volume 13.1 fL (7.4-10.4); Platelet Count 200 10x3/uL (130-400); Red Blood Cell (RBC) Count 3.46 mill/uL (4.20-5.40); White Blood Cell (WBC) Count 16.4 10x3/uL (4.8-10.8)
[2023-12-29 13:32] LABS: ALT (SGPT) 8 U/L (8-55); AST (SGOT) 12 U/L (5-34); Albumin 3.5 g/dL (3.4-4.8); Alkaline Phosphatase 73 U/L (40-110); Anion Gap 12 mmol/L (10-20); BUN (Urea Nitrogen) 22 mg/dL (9.8-20.1); Bilirubin, Total 0.6 mg/dL (0.2-1.2); Calc. Creatinine Clearance 0 mL/min (70-130); Calcium 8.9 mg/dL (7.8-10.44); Carbon Dioxide 29 mmol/L (23-31); Chloride 100 mmol/L (98-107); Estimated GFR 68; Globulin 2.4 g/dL (2.4-3.5); Glucose 183 mg/dL (83-110); Potassium 3.5 mmol/L (3.5-5.1); Protein, Total 5.9 g/dL (5.8-8.1); Sodium 137 mmol/L (136-145)
[2023-12-29 13:37] LABS: INR-International Normal Ratio 1.1; PTT 27.4 sec (22.9-36.1); Prothrombin Time 13.9 sec (12.0-14.7)
[2023-12-29] MEDS ORDERED: fentaNYL PF 100 MCG/2 ML SYRINGE ONE (16:45)
[2023-12-29] MEDS ORDERED: Dexamethasone 4 mg/ml Vial ONE (16:45)
[2023-12-29] MEDS ORDERED: Rocuronium Bromide 10 MG/ML (10ML VIAL) ONE (16:45)
[2023-12-29] MEDS ORDERED: Ondansetron PF 4 MG/2 ML Vial ONE (16:45)
[2023-12-29] MEDS ORDERED: Lidocaine 2% PF 5 ML VIAL ONE (16:45)
[2023-12-29] MEDS ORDERED: SUGAMMADEX SODIUM 200 MG/2 ML VIAL ONE (16:46)
[2023-12-29] MEDS ORDERED: PROPOFOL 20 ML ONE (16:46)
[2023-12-29] MEDS ORDERED: Vasopressin 20 UNITS/ML VIAL ONE (16:56)
[2023-12-29] MEDS ORDERED: Albumin 5% 250 ML ONE (16:56)
[2023-12-29] MEDS ORDERED: HYDROmorphone 0.5 MG/0.5 ML SYRINGE ONE (17:26)
[2023-12-29] MEDS ORDERED: HYDROmorphone 2 MG/ML VIAL SLOW IVP PRN (18:17)
[2023-12-29] MEDS ORDERED: Promethazine HCl 25 MG/ML VIAL IM PRN (18:17)
[2023-12-29] MEDS ORDERED: Ondansetron HCl/PF 4 MG/2 ML Vial IVP PRN (18:17)
[2023-12-29] MEDS ORDERED: Morphine 4 MG/ML VIAL SLOW IVP PRN (18:35)
[2023-12-29 20:09] VITALS: BMI 17.8
[2023-12-29] MEDS: HYDROcodone/Acetaminophen 5/325 mg Tablet PO PRN (23:30)
[2023-12-30] MEDS: Sodium Chloride 0.9% 1,000 ML IV SCH (00:36)
[2023-12-30 15:58] VITALS: BP 147/68; TEMP 97.9
[2024-01-01] MEDS ORDERED: FLU VACC QS2023(65UP)/MF59C/PF 60 MCG/0.5 ML SYRINGE IM ONE (09:00)
== END 2023-12-30 16:45 | DRG 328 ==
LOC: ERS 11:32 → SDC/OP 16:45 → SURG A 19:00
PROVIDERS: ADMIT Surgery; ATTEND Surgery
PROC: 0DS64ZZ Reposition Stomach, Percutaneous Endoscopic Approach (ICD-10-PCS; principal; 2023-12-29)
PROC: 0DH64UZ Insertion of Feeding Device into Stomach, Percutaneous Endoscopic Approach (ICD-10-PCS; 2023-12-29)
PROC: 30233J1 Transfusion of Nonautologous Serum Albumin into Peripheral Vein, Percutaneous Approach (ICD-10-PCS; 2023-12-29)
DX: K31.89 Other diseases of stomach and duodenum (principal); J44.9 Chronic obstructive pulmonary disease, unspecified; I10 Essential (primary) hypertension; K44.9 Diaphragmatic hernia without obstruction or gangrene; I73.9 Peripheral vascular disease, unspecified; K21.9 Gastro-esophageal reflux disease without esophagitis; Z87.891 Personal history of nicotine dependence; Z88.0 Allergy status to penicillin; Z90.49 Acquired absence of other specified parts of digestive tract; Z98.51 Tubal ligation status
CPT/HCPCS: 36416; 74177; 80053; 85025; 85610; 85730; 86850; 86870; 86900; 86901; 86905; 86922; A4314; J1100; J1170; J2001; J2405; J2704; J7050; P9045; Q9967

== ENCOUNTER 2024-03-20 10:38 | Inpatient (IN) | payer MEDICARE, MEDICAID ==
[~2024-03-20 10:38] MED LIST changes: -Iopamidol 370 76% 100 ML VIAL ONE; +Iopamidol-370 76% 500 ML MDV (1 ML CHARGE) ONE
[2024-03-20] MEDS ORDERED: Morphine 4 MG/ML VIAL ONE (11:19)
[2024-03-20] MEDS ORDERED: Famotidine/PF 20 mg/2ml Vial ONE (11:20)
[2024-03-20] MEDS ORDERED: Pantoprazole 40 MG VIAL ONE (11:20)
[2024-03-20 11:42] LABS: #Basophils Less than 0.03 10x3/uL (0.0-0.2); #Eosinphils Less than 0.03 10x3/uL (0.0-0.7); %Basophils 0.1 % (0.0-1.0); %Eosinophils 0.1 % (0.0-10.0); %Lymphocytes 14.2 % (21.0-51.0); %Neutrophils 78.2 % (42.0-75.0); Hemoglobin 9.9 g/dL (12.0-16.0); Mean Corpuscular HGB CONC 31.9 g/dL (32.0-36.0); Mean Corpuscular Volume 90.9 fL (78.0-98.0); Mean Platelet Volume 12.1 fL (7.4-10.4); Platelet Count 232 10x3/uL (130-400); RBC Distribution Width 17.2 % (11.5-14.5); Red Blood Cell (RBC) Count 3.41 mill/uL (4.20-5.40)
[2024-03-20 11:57] LABS: INR-International Normal Ratio 1.1; PTT 26.6 sec (22.9-36.1); Prothrombin Time 14.2 sec (12.0-14.7)
[2024-03-20 12:04] LABS: ALT (SGPT) 8 U/L (8-55); AST (SGOT) 10 U/L (5-34); Albumin 3.7 g/dL (3.4-4.8); Alkaline Phosphatase 96 U/L (40-110); Anion Gap 17 mmol/L (10-20); BUN (Urea Nitrogen) 17 mg/dL (9.8-20.1); Bilirubin, Total 0.8 mg/dL (0.2-1.2); Calc. Creatinine Clearance 0 mL/min (70-130); Calcium 9.1 mg/dL (7.8-10.44); Carbon Dioxide 25 mmol/L (23-31); Chloride 103 mmol/L (98-107); Estimated GFR 70; Globulin 2.7 g/dL (2.4-3.5); Glucose 190 mg/dL (83-110); Lipase 15 U/L (8-78); Magnesium 1.9 mg/dL (1.6-2.6); Potassium 3.5 mmol/L (3.5-5.1); Protein, Total 6.4 g/dL (5.8-8.1); Sodium 141 mmol/L (136-145)
[2024-03-20 12:08] LABS: Troponin I 0.016 ng/mL (< 0.028)
[2024-03-20] MEDS ORDERED: Metoclopramide HCl 10 MG (2 mL) VIAL ONE (13:46)
[2024-03-20] MEDS ORDERED: Ipratropium/Albuterol 3 ML NEB NEB PRN (13:55)
[2024-03-20] MEDS ORDERED: Ondansetron ODT 4 MG TAB PO PRN ×2 (13:55→18:52)
[2024-03-20] MEDS ORDERED: Morphine 2 MG/ML VIAL SLOW IVP PRN (13:55)
[2024-03-20] MEDS ORDERED: Ondansetron PF 4 MG/2 ML Vial IVP PRN (13:55)
[2024-03-20] MEDS ORDERED: Acetaminophen 325 MG TAB PO SCH (14:00)
[2024-03-20] MEDS ORDERED: Acetaminophen 325 MG TAB PER TUBE SCH (14:00)
[2024-03-20] MEDS ORDERED: Sodium Chloride 0.9% 1,000 ML IV SCH (14:00)
[2024-03-20] MEDS ORDERED: CEFAZOLIN 2 GM in Sodium Chloride 0.9% 100 ML IVPB SCH (14:15)
[2024-03-20] MEDS ORDERED: SUCCINYLCHOLINE/SOD CL,ISO/PF 200 MG/10 ML SYRINGE FS ONE ×2 (15:05→15:28)
[2024-03-20] MEDS ORDERED: Rocuronium Bromide 10 MG/ML (10ML VIAL) ONE ×2 (15:05→15:28)
[2024-03-20] MEDS ORDERED: ePHEDrine Sulfate 50 MG/10 ML VIAL ONE (15:05)
[2024-03-20] MEDS ORDERED: PROPOFOL 20 ML ONE ×2 (15:05→15:29)
[2024-03-20] MEDS ORDERED: fentaNYL PF 100 MCG/2 ML SYRINGE ONE ×2 (15:05→15:29)
[2024-03-20] MEDS ORDERED: PHENYLEPHRINE-NS 100 MCG/ML 10 ML SYRINGE ONE ×2 (15:05)
[2024-03-20] MEDS ORDERED: Lidocaine 1% PF 5 ML VIAL ONE (15:05)
[2024-03-20] MEDS ORDERED: Bupivacaine 0.25% HCL 30 ML VIAL ONE (15:25)
[2024-03-20] MEDS ORDERED: EPINEPHrine 1 MG/ML VIAL ONE (15:25)
[2024-03-20] MEDS ORDERED: Bupivacaine PF 0.5% 30 ML VIAL ONE (15:25)
[2024-03-20] MEDS ORDERED: Lidocaine 2% PF 5 ML VIAL ONE (15:28)
[2024-03-20] MEDS ORDERED: Rocuronium Bromide 50 MG/5 ML VIAL ONE (15:32)
[2024-03-20] MEDS ORDERED: Midazolam HCl 2 mg/2 ml Vial ONE (15:37)
[2024-03-20] MEDS ORDERED: CEFAZOLIN 1 GM VIAL ONE ×2 (16:08)
[2024-03-20] MEDS ORDERED: Dexamethasone 20 MG/5 ML VIAL ONE (16:32)
[2024-03-20] MEDS ORDERED: Glycopyrrolate 0.2 MG/ML 5 ML SYRINGE ONE (16:32)
[2024-03-20] MEDS ORDERED: NEOSTIGMINE 3 MG/3 ML SYR 3 MG/3 ML SYRINGE ONE (16:32)
[2024-03-20] MEDS ORDERED: Ondansetron HCl/PF 4 MG/2 ML Vial IVP PRN (18:36)
[2024-03-20] MEDS ORDERED: Promethazine HCl 25 MG/ML VIAL IM PRN (18:36)
[2024-03-20] MEDS ORDERED: Morphine 4 MG/ML VIAL SLOW IVP PRN (18:44)
[2024-03-20] MEDS ORDERED: Albuterol 200 PUFF (6.7GM INHALER) INH PRN (18:52)
[2024-03-20] MEDS: Potassium Chloride 20 MEQ in Lactated Ringer's 1,000 ML IV SCH (20:18)
[2024-03-20] MEDS: Gabapentin 100 MG CAP PO SCH (20:19)
[2024-03-20] MEDS: Scopolamine 1 mg/72 hour Patch TD SCH (20:19)
[2024-03-20] MEDS: Cyclobenzaprine 10 MG TAB PO SCH (20:19)
[2024-03-20] MEDS: Enoxaparin 40 MG (0.4 mL) SYRINGE SC SCH (20:20)
[2024-03-20] MEDS ORDERED: Famotidine/PF 20 mg/2ml Vial SLOW IVP SCH (21:00)
[2024-03-21] MEDS: Ketorolac Tromethamine 30 MG (1 mL) VIAL IVP SCH (00:13)
[2024-03-21] MEDS: Transdermal Patch Removal TOP SCH (03:03)
[2024-03-21 06:26] LABS: #Basophils Less than 0.03 10x3/uL (0.0-0.2); #Eosinphils Less than 0.03 10x3/uL (0.0-0.7); %Basophils 0.1 % (0.0-1.0); %Eosinophils 0.1 % (0.0-10.0); %Lymphocytes 15.6 % (21.0-51.0); %Monocytes 13.1 % (0.0-10.0); %Neutrophils 70.7 % (42.0-75.0); Hematocrit 26.4 % (36.0-47.0); Hemoglobin 8.1 g/dL (12.0-16.0); Mean Corpuscular HGB CONC 30.7 g/dL (32.0-36.0); Mean Corpuscular Hemoglobin 27.8 pg (27.0-31.0); Mean Corpuscular Volume 90.7 fL (78.0-98.0); Mean Platelet Volume 12.8 fL (7.4-10.4); Platelet Count 167 10x3/uL (130-400); RBC Distribution Width 18.3 % (11.5-14.5); Red Blood Cell (RBC) Count 2.91 mill/uL (4.20-5.40)
[2024-03-21 06:34] LABS: INR-International Normal Ratio 1.3; PTT 33.2 sec (22.9-36.1); Prothrombin Time 16.4 sec (12.0-14.7)
[2024-03-21 06:40] LABS: ALT (SGPT) 9 U/L (8-55); AST (SGOT) 15 U/L (5-34); Albumin 2.7 g/dL (3.4-4.8); Alkaline Phosphatase 59 U/L (40-110); Anion Gap 10 mmol/L (10-20); BUN (Urea Nitrogen) 18 mg/dL (9.8-20.1); Bilirubin, Total 0.5 mg/dL (0.2-1.2); Calc. Creatinine Clearance 44 mL/min (70-130); Calcium 7.9 mg/dL (7.8-10.44); Carbon Dioxide 26 mmol/L (23-31); Chloride 110 mmol/L (98-107); Estimated GFR 78; Globulin 1.9 g/dL (2.4-3.5); Glucose 124 mg/dL (83-110); Magnesium 1.6 mg/dL (1.6-2.6); Potassium 4.2 mmol/L (3.5-5.1); Protein, Total 4.6 g/dL (5.8-8.1); Sodium 142 mmol/L (136-145)
[2024-03-21] MEDS ORDERED: Hydrocodone-Acetamin 15 ML UDCUP PO PRN (07:00)
[2024-03-21] MEDS: DULoxetine 30 MG CAP PO SCH (09:22)
[2024-03-21] MEDS: Sertraline 100 MG TAB PO SCH (09:22)
[2024-03-21] MEDS: Amlodipine 5 MG TAB PO SCH (09:23)
[2024-03-21] MEDS: Pantoprazole 40 MG VIAL IVP SCH (09:23)
[2024-03-21] MEDS: Magnesium 2 GM/50 ML(in water) 2 GM in Premix 1 BAG IVPB SCH (09:23)
[2024-03-21] MEDS: Lidocaine 4% Patch TD SCH (13:50)
[2024-03-22 11:15] VITALS: BP 110/67; TEMP 98.1
== END 2024-03-22 17:27 | disposition home or self-care (01) | DRG 326 ==
LOC: ERS 10:38 → SDC 15:02 → SURG B 19:09
PROVIDERS: ADMIT Specialist; ATTEND Specialist
PROC: 0DV44ZZ Restriction of Esophagogastric Junction, Percutaneous Endoscopic Approach (ICD-10-PCS; principal; 2024-03-20)
PROC: 0BQT4ZZ Repair Diaphragm, Percutaneous Endoscopic Approach (ICD-10-PCS; 2024-03-20)
PROC: 0DQ64ZZ Repair Stomach, Percutaneous Endoscopic Approach (ICD-10-PCS; 2024-03-20)
PROC: 0DP64UZ Removal of Feeding Device from Stomach, Percutaneous Endoscopic Approach (ICD-10-PCS; 2024-03-20)
PROC: 02H633Z Insertion of Infusion Device into Right Atrium, Percutaneous Approach (ICD-10-PCS; 2024-03-20)
DX: K44.0 Diaphragmatic hernia with obstruction, without gangrene (principal); K56.2 Volvulus; I13.0 Hypertensive heart and chronic kidney disease with heart failure and stage 1 through stage 4 chronic kidney disease, or unspecified chronic kidney disease; N18.9 Chronic kidney disease, unspecified; F32.A Depression, unspecified; Z87.11 Personal history of peptic ulcer disease; J44.9 Chronic obstructive pulmonary disease, unspecified; E78.5 Hyperlipidemia, unspecified; E11.22 Type 2 diabetes mellitus with diabetic chronic kidney disease; D64.9 Anemia, unspecified; I25.10 Atherosclerotic heart disease of native coronary artery without angina pectoris; M19.90 Unspecified osteoarthritis, unspecified site; K21.9 Gastro-esophageal reflux disease without esophagitis; I25.2 Old myocardial infarction; Z93.1 Gastrostomy status; Z88.0 Allergy status to penicillin; Z90.722 Acquired absence of ovaries, bilateral; Z90.710 Acquired absence of both cervix and uterus; Z90.49 Acquired absence of other specified parts of digestive tract; Z79.899 Other long term (current) drug therapy; Z95.1 Presence of aortocoronary bypass graft; Z95.5 Presence of coronary angioplasty implant and graft
CPT/HCPCS: 36430; 71045; 71260; 74177; 80053; 83605; 83690; 83735; 84484; 85025; 85610; 85730; 86850; 86900; 86901; 86922; 93005; 96361; 96365; 96375; A4649; C1751; C9113; J0171; J0665; J0690; J1100; J1650; J1885; J2001; J2250; J2270; J2704; J2765; J3475; J3480; J7120; P9016; Q9967; S0028